=== PATIENT | female | born 1960 | race Caucasian/White ===

== ENCOUNTER → 2017-10-26 | Outpatient (CLI) | payer MEDICARE, OTHER ==
[2017-10-26 08:33] VITALS: BMI 33.3
[2017-10-26 13:28] VITALS: BP 125/70; PULSE 68; RESP 16; TEMP 98.2
--- NOTE | 2017-10-26 14:17 | P.CONS ---
History of Present Illness - Reason for Consult Consult date: 10/26/17 - Chief Complaint Lower back pain - History of Present Illness This is a 57-year-old lady with chronic history of lower back pain status post 4 back surgeries. The patient also has weakness in her left leg. It goes across her lower back and occasionally down the legs to the mid calves with occasional numbness and tingling in both feet. Her pain also goes up to the midthoracic area. We will her lower back pain gets worse by sitting for too long and walking for too long it occasionally wakes her up at night. She denies any bowel or bladder dysfunction. Her pain fluctuates in intensity but it is more than 5 out of 10 most of the time as she states. This pain increases by activities as mentioned above. The patient lays down in bed when she gets this pain. She used to be on [place] 4 times a day however her physician stopped prescribing that for her and she tried tramadol which did not help her pain and actually give her insomnia. Right now she takes Tylenol 3 that she tries to avoid taking it unless she really needs it because of severe constipation that she gets as a side effect. She saw Dr. Guzman recently who referred her to our clinic because there is nothing much can be done surgically for her complaint. Review of Systems Constitutional: Reports chronic pain Cardiovascular: Reports high blood pressure Respiratory: Denies as per HPI, Denies congestion, Denies cough, Denies cough with sputum, Denies dyspnea, Denies excessive sputum, Denies hemoptysis, Denies home oxygen, Denies pain, Denies pain on inspiration, Denies pleurisy, Denies respiratory infections, Denies sleep apnea, Denies snoring, Denies wheezing Musculoskeletal: Reports as per HPI Neurological: Reports as per HPI Psychiatric: Reports anxiety, Reports depression Past Medical History Past Medical History: Asthma, Diabetes Mellitus, GERD/Reflux, Hypertension, Musculoskeletal Disorder, Osteoarthritis (OA) Additional Past Medical History / Comment(s): lower back pain, no current problems w/diabetes since weight loss History of Any Multi-Drug Resistant Organisms: None Reported Past Surgical History: Back Surgery, Bariatric Surgery, Cholecystectomy, Hysterectomy, Tubal Ligation Additional Past Surgical History / Comment(s): neck and back surgery x 4, carpal tunnel bilateral, rouxen y-gastric bypass Past Anesthesia/Blood Transfusion Reactions: No Reported Reaction Smoking Status: Current every day smoker - Past Family History Mother Family Medical History: Congestive Heart Failure (CHF) Father Family Medical History: Respiratory Disorder Medications and Allergies Home Medications Medication Instructions Recorded Confirmed Type ALPRAZolam [Xanax] 0.25 mg PO BID 06/22/14 10/26/17 History Aspirin 81 mg PO DAILY 06/22/14 10/26/17 History Calcium Carbonate/Vitamin D3 1 tab PO DAILY 06/22/14 10/26/17 History [Calcium 600-Vit D3 400 Tablet] Multivitamins, Thera [Multivitamin] 1 tab PO DAILY 06/22/14 10/26/17 History Omeprazole 20 mg PO DAILY 06/22/14 10/26/17 History ALPRAZolam [Xanax] 0.5 mg PO HS 10/26/17 10/26/17 History ARIPiprazole [Abilify] 10 mg PO DAILY 10/26/17 10/26/17 History Acetaminophen with Codeine 1 tab PO TID PRN 10/26/17 10/26/17 History [Tylenol w/codeine #3] Albuterol Nebulized [Ventolin 2.5 mg INHALATION TID 10/26/17 10/26/17 History Nebulized] Cyanocobalamin [Vitamin B-12] 500 mcg PO DAILY 10/26/17 10/26/17 History Lisinopril [Zestril] 5 mg PO DAILY 10/26/17 10/26/17 History Sertraline [Zoloft] 100 mg PO DAILY 10/26/17 10/26/17 History lamoTRIgine [LaMICtal] 200 mg PO DAILY 10/26/17 10/26/17 History Allergies Allergy/AdvReac Type Severity Reaction Status Date / Time atorvastatin calcium Allergy Anaphylaxis Verified 10/26/17 13:12 [From Lipitor] pregabalin [From Lyrica] Allergy Anaphylaxis Verified 10/26/17 13:12 rosuvastatin calcium Allergy Anaphylaxis Verified 10/26/17 13:12 [From Crestor] duloxetine [From Cymbalta] AdvReac Nausea Verified 10/26/17 13:12 Physical Exam Vitals: Vital Signs Temp Pulse Resp BP Pulse Ox 10/26/17 13:23 98.2 F 68 16 125/70 94 L Intake and Output 10/25/17 10/26/17 10/26/17 22:59 06:59 14:59 Other: Weight 74.843 kg - Constitutional General appearance: morbidly obese - EENT Eyes: PERRLA - Respiratory Respiratory: bilateral: CTA - Cardiovascular Rhythm: regular Heart sounds: normal: S1, S2 Abnormal Heart Sounds: no systolic murmur, no diastolic murmur, no rub, no S3 Gallop, no S4 Gallop, no click, no other - Neurologic Neurologic: CNII-XII intact - Psychiatric Psychiatric: A&O x's 3, appropriate affect, intact judgment & insight Neuro exam of the lower extremities showed decreased muscle strength in the left lower extremity to 4 out of 5 for left hip flexion and left knee flexion and extension and left ankle flexion and extension. She has no deep tendon reflexes in the lower extremities. Internal and external rotation of the hip joints did not elicit any pain bilaterally. Straight leg raising test negative bilaterally. Ángel's test negative bilaterally. She has tenderness in the mid thoracic area the paravertebral area bilaterally and also the lumbar area. She has numbness in the lower lumbar area from her previous surgeries. Assessment and Plan Plan: This is a 57-year-old female with lumbar postlaminectomy pain syndrome and weakness in the left lower extremity. The patient may benefit from getting physical therapy for left lower extremity weakness. Also we'll schedule the patient to have caudal epidural steroid injection under fluoroscopic guidance with lysis of adhesions. I will send the patient to have an x-ray with 3 views of the thoracic spine for her thoracic spondylosis without myelopathy. I'll prescribe [place] 7.5 mg twice a day if needed for her pain I'll give her prescription for 1 month only. The patient will stop using Xanax. We will do a urine drug screen on the patient today before she leaves I will sign an opioid agreement with her. The procedure was explained to the patient and her questions were answered. I thank Dr. Guzman for the consultation
== END ==
LOC: PNWHC3 12:26
PROVIDERS: ATTEND Anesthesiology
DX: M96.1 Postlaminectomy syndrome, not elsewhere classified (principal); R53.1 Weakness; J45.909 Unspecified asthma, uncomplicated; I10 Essential (primary) hypertension; K21.9 Gastro-esophageal reflux disease without esophagitis; M19.90 Unspecified osteoarthritis, unspecified site; F17.200 Nicotine dependence, unspecified, uncomplicated; Z88.8 Allergy status to other drugs, medicaments and biological substances; Z79.82 Long term (current) use of aspirin; Z79.899 Other long term (current) drug therapy
CPT/HCPCS: G0480; G0463; 80307; 80346; 80348; 80356; 80364; 99211

== ENCOUNTER 2017-11-25 07:06 | Day surgery (SDC) | payer MEDICARE, OTHER ==
[2017-11-23 15:11] VITALS: BMI 33.3
[~2017-11-25 07:06] MED LIST: LACTATED RINGERS 1,000 ML IV SCH
[2017-11-25 08:00] VITALS: RESP 16; TEMP 98.3
--- NOTE | 2017-11-25 09:02 | P.PCN ---
Date of Procedure: 11/25/17 Procedure(s) Performed: PREOP DIAGNOSIS: 1- Lumbar postlaminectomy syndrome POSTOP DIAGNOSIS:1- Lumbar postlaminectomy syndrome PROCEDURE: Caudal epidural steroid injection with epidurolysis and epidurogram under fluoroscopic guidance ANESTHESIA: Local with 1% lidocaine 3 ml ,and moderate sedation, with Versed 4 mg and fentanyl 200 g EBL: Minimal. PROCEDURE INDICATION: The patient with post-laminectomy syndrome with low back pain and radiculopathy radiating down in both legs, here for a caudal epidural steroid injection with epidurolysis. PROCEDURE DESCRIPTION: The patient was seen and identified in the preoperative area. Risks, benefits, complications, and alternatives were discussed with the patient. The patient agreed to proceed with the procedure and signed the consent. IV was started, and vital signs were stable. Patient was taken to the OR and time out was completed. The patient was placed in the prone position on procedure table and a pillow was placed under the abdomen to reduce lumbar lordosis. The lumbosacral area was prepped and draped in the usual sterile fashion. Vital signs were closely monitored during the procedure. lateral view and the anterior-posterior plates of the sacrum were identified with infiltration of the area overlying the sacral hiatus with 1% lidocaine .A 17 gauge RK epidural needle was used to advance through the sacral hiatus into the caudal epidural space. Omnipaque 180 dye. 2cc was injected and the position of the needle was verified to be in the midline. A Racz catheter was introduced into the epidural space and was advanced towards the L5-S1 interspace under direct fluoroscopic guidance. Multiple passes were made with the catheter for lysis of epidural adhesions. Depo-Medrol 80 mg with 3ml of preservative free Lidocaine 1% and 5 ml of preservative free normal saline was injected slowly. Additional spread was seen to L4 under fluoroscopy. The needle and the catheter were withdrawn intact. EPIDUROGRAM: Omnipaque 180 mg dye 2 ml was injected with spread of the dye into the caudal epidural space and with spread cutoff at L5 prior to epidurolysis. Post epidurolysis dye 2 ml was injected and spread was seen to L4- 5.There was further spread of the solution together with the dye above the L3 COMPLICATIONS: None. DISPOSITION / PLANS: The patient was placed in a supine position and transferred to the recovery area in a stable condition for observation and was discharged from the recovery room after meeting discharge criteria. Home discharge instructions given to the patient by the staff. The patient was reexamined prior to discharge. The patient will schedule a follow up in the clinic in 2-4 weeks.
[2017-11-25] MEDS ORDERED: IV FLUID CONTINUATION 1,000 ML IV ONE ×2 (09:08)
--- NOTE | 2017-11-25 09:18 | FL ---
EXAMINATION TYPE: FL guided pain mgmt statistic DATE OF EXAM: 11/25/2017 FLUOROSCOPY Fluoroscopy time of 4 seconds was used during caudal epidural injection. 3 image/s document/s the pr manpreet.
[2017-11-25] MEDS ORDERED: KETOROLAC 30 MG/ML 1 ML VIAL IVP ONE (09:21)
[2017-11-25] MEDS ORDERED: HYDROmorphone 0.5 MG/0.5 ML SYRINGE IVP ONE (09:49)
[2017-11-25] MEDS ORDERED: HYDROmorphone 0.5 MG/0.5 ML SYRINGE IVP STA (09:50)
[2017-11-25 09:52] VITALS: BP 150/67; PULSE 68
[2017-11-25] MEDS ORDERED: KETOROLAC 30 MG/ML 1 ML VIAL IVP SCH (12:00)
== END 2017-11-25 10:20 | disposition home or self-care (01) ==
LOC: ORPAIN 07:06
PROVIDERS: ATTEND Specialist
DX: M96.1 Postlaminectomy syndrome, not elsewhere classified (principal); I10 Essential (primary) hypertension; J45.909 Unspecified asthma, uncomplicated; E11.9 Type 2 diabetes mellitus without complications; K21.9 Gastro-esophageal reflux disease without esophagitis; Z88.8 Allergy status to other drugs, medicaments and biological substances
CPT/HCPCS: 62264; J2250; J3301; J3010; J1885; J1170; Q9966; 99152

== ENCOUNTER → 2019-11-23 | Outpatient (CLI) | payer MEDICARE, OTHER ==
--- NOTE | 2019-11-23 15:36 | P.HPBAR ---
Bariatric H&P - History & Physicial H&P Date: 11/23/19 History & Physicial: Visit/CC: Patient initial contact: Initial weight: 97.84 kg Initial weight in pounds: 215.70 Height: 4 ft 11 in Initial BMI: 43.5 Last weight: Current weight: 80.286 kg Current weight in pounds: 177.00 Current BMI: 35.7 Hitchcock body weight (based on NIH guidelines): 43.091 kg Excess body weight loss: 32.0% The patient is a 59 year-old F who presents for Bariatric Assessment. Comes in with in MRCP. Will need referral to [facility] if intervention is needed. She reports waking up in the abdomen. She has been lost to follow up for 5 years from bariatric center. Will need lab work. Labs will be needed with referral to GI. No chronic abdominal pain EGD for scope and pork chops Past Medical History Past Medical History: Asthma, Diabetes Mellitus, GERD/Reflux, Hypertension, Musculoskeletal Disorder, Osteoarthritis (OA) Additional Past Medical History / Comment(s): lower back pain, no current problems w/diabetes since weight loss History of Any Multi-Drug Resistant Organisms: None Reported Past Surgical History: Back Surgery, Bariatric Surgery, Cholecystectomy, Hysterectomy, Tubal Ligation Additional Past Surgical History / Comment(s): neck and back surgery x 4, carpal tunnel bilateral, rouxen y-gastric bypass Past Anesthesia/Blood Transfusion Reactions: No Reported Reaction Smoking Status: Current every day smoker - Past Family History Mother Family Medical History: Congestive Heart Failure (CHF) Father Family Medical History: Respiratory Disorder Surgical - Exam Vital Signs Temp Pulse Resp BP 98.5 F 101 H 16 104/64 11/23/19 15:25 11/23/19 15:25 11/23/19 15:25 11/23/19 15:25 Bariatric Checklist Checklist: Plan: Checklist: EGD: 1. Hiatal hernia: 2. H. Pylori: HgbA1c: Vitamin D: Smoking: Current every day smoker Primary care physician referral: DR. NEWTON Psychiatry clearance: Cardiology clearance: Sleep study: Diet journal: VTE risk score: VTE risk level: Rehab needs at discharge:
[2019-11-25 09:33] VITALS: BP 104/64; PULSE 101; RESP 16; TEMP 98.5; BMI 35.7
== END | disposition home or self-care (01) ==
LOC: BARWHC3 14:17
PROVIDERS: ATTEND Surgery Plastic and Reconstructive Surgery
DX: Z48.815 Encounter for surgical aftercare following surgery on the digestive system (principal); Z98.84 Bariatric surgery status
CPT/HCPCS: 99211

== ENCOUNTER 2019-12-07 06:56 | Day surgery (SDC) | payer MEDICARE, OTHER ==
[2019-12-05 10:42] VITALS: BMI 34.3
[2019-12-07 07:33] VITALS: TEMP 97.6
[2019-12-07 07:45] LABS: Glucose,Whole Blood 103 mg/dL (75-99)
--- NOTE | 2019-12-07 08:01 | P.GSHP ---
History of Present Illness H&P Date: 12/07/19 CHIEF COMPLAINT: GERD HISTORY OF PRESENT ILLNESS: The patient is a 59-year-old female who presents reports gastroesophageal reflux disease. Upper endoscopy was offered for further evaluation and management. PAST MEDICAL HISTORY: Please see list. PAST SURGICAL HISTORY: Please see list. MEDICATIONS: Please see list. ALLERGIES: Please see list. SOCIAL HISTORY: No illicit drug use FAMILY HISTORY: No reports of Crohn disease or ulcerative colitis. REVIEW OF ORGAN SYSTEMS: CONSTITUTIONAL: No reports of fevers or chills. GI: Denies any blood in stools or constipation. PHYSICAL EXAM: VITAL SIGNS: Stable GENERAL: Well-developed and pleasant in no acute distress. HEENT: No scleral icterus. Extraocular movements grossly intact. Moist buccal mucosa. NECK: Supple without lymphadenopathy. CHEST: Unlabored respirations. Equal bilateral excursions. CARDIOVASCULAR: Regular rate and rhythm. Distal 2+ pulses. ABDOMEN: Soft, nondistended. MUSCULOSKELETAL: No clubbing, cyanosis, or edema. ASSESSMENT: 1. Gastroesophageal reflux disease PLAN: 1. Recommend proceeding with an upper endoscopy Past Medical History Past Medical History: Asthma, Diabetes Mellitus, GERD/Reflux, Hypertension, Musculoskeletal Disorder, Osteoarthritis (OA) Additional Past Medical History / Comment(s): lower back pain, no current problems w/diabetes since weight loss, History of Any Multi-Drug Resistant Organisms: None Reported Past Surgical History: Back Surgery, Bariatric Surgery, Cholecystectomy, Hysterectomy, Orthopedic Surgery, Tubal Ligation Additional Past Surgical History / Comment(s): neck and back surgery x 4, carpal tunnel bilateral, rouxen y-gastric bypass, EGD Past Anesthesia/Blood Transfusion Reactions: No Reported Reaction Smoking Status: Current every day smoker - Past Family History Mother Family Medical History: Congestive Heart Failure (CHF) Father Family Medical History: Respiratory Disorder Medications and Allergies Home Medications Medication Instructions Recorded Confirmed Type Multivitamins, Thera [Multivitamin] 1 tab PO DAILY 06/22/14 12/07/19 History ARIPiprazole [Abilify] 10 mg PO DAILY 10/26/17 12/07/19 History Albuterol Nebulized [Ventolin 2.5 mg INHALATION TID PRN 10/26/17 12/07/19 History Nebulized] Calcium Carbonate [Calcium] 600 mg PO DAILY 11/23/17 12/07/19 History Atomoxetine HCl [Strattera] 60 mg PO DAILY 11/30/19 12/07/19 History Omeprazole [PriLOSEC] 20 mg PO AC-BRKFST 11/30/19 12/07/19 History Sertraline [Zoloft] 100 mg PO DAILY 11/30/19 12/07/19 History Buprenorphine HCl/Naloxone HCl 1 each SL DAILY 12/05/19 12/07/19 History [Suboxone 12 mg-3 mg Sl Film] Buprenorphine HCl/Naloxone HCl 1 each SL DAILY 12/05/19 12/07/19 History [Suboxone 8 mg-2 mg Sl Film] Fluticasone/Vilanterol [Breo 1 inhalation PO Q24HR 12/05/19 12/07/19 History Ellipta 100-25 Mcg Inhaler] Allergies Allergy/AdvReac Type Severity Reaction Status Date / Time atorvastatin calcium Allergy Anaphylaxis Verified 12/07/19 07:23 [From Lipitor] pregabalin [From Lyrica] Allergy Anaphylaxis Verified 12/07/19 07:23 rosuvastatin calcium Allergy Anaphylaxis Verified 12/07/19 07:23 [From Crestor] duloxetine [From Cymbalta] AdvReac Nausea Verified 12/07/19 07:23 Surgical - Exam Vital Signs Temp Pulse Resp BP Pulse Ox 97.6 F 91 18 113/69 94 L 12/07/19 07:32 12/07/19 07:32 12/07/19 07:32 12/07/19 07:32 12/07/19 07:32 Results - Labs Abnormal Lab Results - Last 24 Hours (Table) 12/07/19 Range/Units 07:41 POC Glucose (mg/dL) 103 H (75-99) mg/dL
--- NOTE | 2019-12-07 08:20 | P.PCN ---
Date of Procedure: 12/07/19 Description of Procedure: PREOPERATIVE DIAGNOSIS: Dysphagia. History of perforated gastrojejunal ulcer Morbid obesity. Tobacco abuse disorder POSTOPERATIVE DIAGNOSIS: Dysphagia. History of perforated gastrojejunal ulcer Morbid obesity. Tobacco abuse disorder Gastritis Gastrojejunal stricture without chronic ulcer without perforation OPERATION: Esophagogastrojejunoscopy with balloon dilatation from 15 to 20 mm. Esophagogastrojejunoscopy with cold forceps biopsy gastric pouch SURGEON: Rin Blunt MD ANESTHESIA: MAC. INDICATIONS: The patient is a 59-year-old female who presents with a history of dysphagia. Benefits and risks of the procedure were described. Informed consent was obtained. DESCRIPTION: The patient was brought into the endoscopy suite and laid in the left lateral decubitus position. After a timeout was confirmed, the procedure was initiated. An Olympus gastroscope was passed along the posterior oropharynx down to the distal esophagus where the squamocolumnar junction was unremarkable. The gastric pouch was entered. A gastrojejunal stricture of 15 mm was found as the adult gastroscope was 9.5 mm in size. A [employer] balloon dilator was placed through the scope. Final insufflation up to 20 mm was performed with a total of 2 minutes. The scope was advanced up to 60 cm from the incisors into the Jamila limb. The mucosa of the gastrojejunal anastomosis was intact. The gastric pouch was erythematous with cold biopsies obtained. No chronic gastrojejunal marginal ulcer was encountered. No full-thickness injury was encountered. The GI tract was desufflated. The patient tolerated the procedure well. FINDINGS: Squamocolumnar junction unremarkable at 37 cm. Stricture of approximately 15 mm encountered. Chronic gastrojejunal ulceration encountered. Successful balloon dilatation to 20 mm. Jejunal limb measured 8 cm Gastric pouch 4 cm. RECOMMENDATIONS: Tobacco cessation and counseling performed, 3 minutes Upper endoscopy as needed Plan - Discharge Summary Discharge Rx Participant: No New Discharge Prescriptions: Continue Multivitamins, Thera [Multivitamin (formulary)] 1 tab PO DAILY Albuterol Nebulized [Ventolin Nebulized] 2.5 mg INHALATION TID PRN PRN Reason: Shortness Of Breath ARIPiprazole [Abilify] 10 mg PO DAILY Calcium Carbonate [Calcium] 600 mg PO DAILY Sertraline [Zoloft] 100 mg PO DAILY Omeprazole [PriLOSEC] 20 mg PO AC-BRKFST Atomoxetine HCl [Strattera] 60 mg PO DAILY Fluticasone/Vilanterol [Breo Ellipta 100-25 Mcg Inhaler] 1 inhalation PO Q24HR Buprenorphine HCl/Naloxone HCl [Suboxone 12 mg-3 mg Sl Film] 1 each SL DAILY Buprenorphine HCl/Naloxone HCl [Suboxone 8 mg-2 mg Sl Film] 1 each SL DAILY Discharge Medication List Multivitamins, Thera [Multivitamin (formulary)] 1 tab PO DAILY 06/22/14 [History] ARIPiprazole [Abilify] 10 mg PO DAILY 10/26/17 [History] Albuterol Nebulized [Ventolin Nebulized] 2.5 mg INHALATION TID PRN 10/26/17 [History] Calcium Carbonate [Calcium] 600 mg PO DAILY 11/23/17 [History] Atomoxetine HCl [Strattera] 60 mg PO DAILY 11/30/19 [History] Omeprazole [PriLOSEC] 20 mg PO AC-BRKFST 11/30/19 [History] Sertraline [Zoloft] 100 mg PO DAILY 11/30/19 [History] Buprenorphine HCl/Naloxone HCl [Suboxone 12 mg-3 mg Sl Film] 1 each SL DAILY 12/05/19 [History] Buprenorphine HCl/Naloxone HCl [Suboxone 8 mg-2 mg Sl Film] 1 each SL DAILY 12/05/19 [History] Fluticasone/Vilanterol [Breo Ellipta 100-25 Mcg Inhaler] 1 inhalation PO Q24HR 12/05/19 [History] [facility] [place] [facility] Patient Instructions/Handouts: *Surgery [facility] - (Anesthesia) Endoscopy Discharge Instructions, Esophageal Dilation (DC), How to Stop Smoking (ED) Activity/Diet/Wound Care/Special Instructions: Diet as tolerated Discharge Disposition: HOME SELF-CARE
[2019-12-07 08:45] VITALS: BP 97/67; PULSE 74; RESP 15
[2019-12-07 10:14] LABS: HGB 14.5 gm/dL (11.4-16.0); MCH 29.4 pg (25.0-35.0); MCHC 31.6 g/dL (31.0-37.0); MCV 92.9 fL (80.0-100.0); Mean Platelet Volume 8.6; Platelet Count 275 k/uL (150-450); RBC 4.95 m/uL (3.80-5.40); RDW 15.5 % (11.5-15.5); WBC 10.5 k/uL (3.8-10.6)
[2019-12-07 10:25] LABS: ALT 11 U/L (4-34); AST 20 U/L (14-36); African American GFR (CKD) >90 (>60 ml/min/1.73 sqM); Albumin 3.4 g/dL (3.5-5.0); Alkaline Phosphatase 93 U/L (38-126); Anion Gap 4 mmol/L; Blood Urea Nitrogen 9 mg/dL (7-17); Carbon Dioxide 29 mmol/L (22-30); Chloride 104 mmol/L (98-107); Cholesterol 138 mg/dL (<200); Glucose 92 mg/dL (74-99); HDL Cholesterol 55 mg/dL (40-60); LDL Cholesterol,Calculated 59 mg/dL (0-99); Magnesium 1.8 mg/dL (1.6-2.3); Non-African American GFR(CKD) >90 (>60 ml/min/1.73 sqM); Phosphorus 4.6 mg/dL (2.5-4.5); Potassium 4.7 mmol/L (3.5-5.1); Sodium 137 mmol/L (137-145); Total Bilirubin 0.3 mg/dL (0.2-1.3); Total Protein 6.1 g/dL (6.3-8.2); Triglycerides 120 mg/dL (<150)
[2019-12-07 10:27] LABS: INR 0.9 (<1.2); Partial Thromboplastin Time 22.9 sec (22.0-30.0); Prothrombin Time 9.5 sec (9.0-12.0)
[2019-12-07 16:54] LABS: % Iron Saturation 17.13 (12.00-45.00); Iron 62 ug/dL (50-170); Total Iron Binding Capacity 362 ug/dL (228-460)
[2019-12-07 17:03] LABS: Ferritin 24.4 ng/mL (10.0-291.0)
[2019-12-07 17:19] LABS: Folate, Serum >24.0 ng/mL
[2019-12-07 20:18] LABS: Hemoglobin A1C 5.8 % (4.0-6.0)
[2019-12-08 13:24] LABS: Zinc, Serum 53 ug/dL (60-130)
[2019-12-09 06:52] LABS: Vitamin A 36 ug/dL (38-106)
[2019-12-09 07:18] LABS: Vit B1(Thiamine) 101 ug/L (38-122)
[2019-12-11 04:13] LABS: Selenium 95 mcg/L (63-160)
== END 2019-12-07 08:51 | disposition home or self-care (01) ==
LOC: ORWHC2ENDO 06:56
PROVIDERS: ATTEND Surgery Plastic and Reconstructive Surgery
DX: K29.70 Gastritis, unspecified, without bleeding (principal); K56.699 Other intestinal obstruction unspecified as to partial versus complete obstruction; K95.89 Other complications of other bariatric procedure; K28.7 Chronic gastrojejunal ulcer without hemorrhage or perforation; K31.89 Other diseases of stomach and duodenum; K21.9 Gastro-esophageal reflux disease without esophagitis; E66.01 Morbid (severe) obesity due to excess calories; E11.9 Type 2 diabetes mellitus without complications; I10 Essential (primary) hypertension; M19.90 Unspecified osteoarthritis, unspecified site; J44.9 Chronic obstructive pulmonary disease, unspecified; F17.210 Nicotine dependence, cigarettes, uncomplicated; F32.9 Major depressive disorder, single episode, unspecified; E21.1 Secondary hyperparathyroidism, not elsewhere classified; D50.9 Iron deficiency anemia, unspecified; K90.9 Intestinal malabsorption, unspecified; E44.1 Mild protein-calorie malnutrition; E55.9 Vitamin D deficiency, unspecified; K74.1 Hepatic sclerosis; T56.894A Toxic effect of other metals, undetermined, initial encounter; Z88.8 Allergy status to other drugs, medicaments and biological substances; Z68.36 Body mass index [BMI] 36.0-36.9, adult; Z87.11 Personal history of peptic ulcer disease; Z98.890 Other specified postprocedural states; Z90.49 Acquired absence of other specified parts of digestive tract; Z90.710 Acquired absence of both cervix and uterus; Z98.51 Tubal ligation status; Z86.69 Personal history of other diseases of the nervous system and sense organs; Z79.899 Other long term (current) drug therapy; Z79.891 Long term (current) use of opiate analgesic; Z79.51 Long term (current) use of inhaled steroids; Z97.2 Presence of dental prosthetic device (complete) (partial); Z98.1 Arthrodesis status; Z82.49 Family history of ischemic heart disease and other diseases of the circulatory system; Z83.6 Family history of other diseases of the respiratory system
CPT/HCPCS: 43239; 43245; 80053; 80061; 82306; 82525; 82607; 82728; 82746; 83036; 83540; 83550; 83735; 83970; 84100; 84134; 84255; 84425; 84443; 84590; 84630; 85027; 85610; 85730; 88305

== ENCOUNTER 2020-12-01 18:32 | Inpatient (IN) | payer MEDICARE, OTHER ==
--- NOTE | 2020-12-01 18:53 | ED ---
Chest Pain HPI - General Chief Complaint: Chest Pain Stated Complaint: Chest Pain Time Seen by Provider: 12/01/20 18:35 Source: patient, EMS Mode of arrival: EMS Limitations: no limitations - History of Present Illness Initial Comments: Patient is a 60-year-old female past medical history of diabetes who presents emergency department as a transfer from [facility]. Patient went into their facility with chest pain which has been present for the past week however worsened 2 hours prior to arrival to the hospital. EKG was performed upon the patient have an inferior wall STEMI. [facility] did discuss the case with me prior to transfer. Case is discussed with Dr. White. Patient was given thrombolytics, aspirin, heparin, statin, Lopressor and was transferred here. She denies previous history of cardiac disease. Had a cath 6 years ago which was unremarkable. She denies fevers, chills or cough. No other alleviating, assurance analyst modifying factors - Related Data Home Medications Medication Instructions Recorded Confirmed Sertraline [Zoloft] 200 mg PO DAILY 11/30/19 12/01/20 Buprenorphine HCl/Naloxone HCl 1 film SL DAILY 12/05/19 12/01/20 [Suboxone 12 mg-3 mg Sl Film] Buprenorphine HCl/Naloxone HCl 1 film SL DAILY 12/05/19 12/01/20 [Suboxone 8 mg-2 mg Sl Film] ARIPiprazole [Abilify] 20 mg PO DAILY 12/01/20 12/01/20 Albuterol Sulfate [Ventolin HFA] 2 puff INHALATION RT-Q4H 12/01/20 12/01/20 Atomoxetine HCl [Strattera] 80 mg PO DAILY 12/01/20 12/01/20 Budesonide/Glycopyr/Formoterol 2 puff INHALATION RT-BID 12/01/20 12/01/20 [Breztri Aerosphere Inhaler] Cetirizine HCl [Zyrtec] 10 mg PO DAILY 12/01/20 12/01/20 Cholecalciferol (Vitamin D3) 250 mcg PO DAILY 12/01/20 12/01/20 [Vitamin D3 (5000 Iu)] Doxycycline Monohydrate [Monodox] 100 mg PO BID 12/01/20 12/01/20 Fluticasone Nasal [place] [Flonase 1 spray EA NOSTRIL DAILY 12/01/20 12/01/20 Nasal [place]] Furosemide [Lasix] 20 mg PO MOWEFR 12/01/20 12/01/20 Ipratropium-Albuterol Nebulize 3 ml INHALATION RT-QID PRN 12/01/20 12/01/20 [Duoneb 0.5 mg-3 mg/3 ml Soln] Magnesium Oxide 400 mg PO HS 12/01/20 12/01/20 Montelukast [Singulair] 10 mg PO DAILY 12/01/20 12/01/20 Nicotine Polacrilex [Nicorette] 4 mg BUCCAL Q2H PRN 12/01/20 12/01/20 Pantoprazole Sodium [Protonix] 40 mg PO DAILY 12/01/20 12/01/20 Topiramate [Topamax] 100 mg PO HS 12/01/20 12/01/20 Vitamin A 2,400 mcg PO DAILY 12/01/20 12/01/20 Vitamin B Complex 1 cap PO DAILY 12/01/20 12/01/20 Zinc 50 mg PO DAILY 12/01/20 12/01/20 predniSONE [Deltasone] 40 mg PO DAILY 12/01/20 12/01/20 Allergies Allergy/AdvReac Type Severity Reaction Status Date / Time atorvastatin calcium Allergy Anaphylaxis Verified 12/01/20 19:44 [From Lipitor] citalopram [From Celexa] Allergy Unknown Verified 12/01/20 19:44 NSAIDS (Non-Steroidal Allergy Unknown Verified 12/01/20 19:44 Anti-Inflamma pregabalin [From Lyrica] Allergy Anaphylaxis Verified 12/01/20 19:44 rosuvastatin calcium Allergy Anaphylaxis Verified 12/01/20 19:44 [From Crestor] duloxetine [From Cymbalta] AdvReac Nausea Verified 12/01/20 19:44 Review of Systems ROS Statement: Those systems with pertinent positive or pertinent negative responses have been documented in the HPI. ROS Other: All systems not noted in ROS Statement are negative. EKG Findings - EKG Comments: EKG Findings:: EKG demonstrates sinus rhythm with a ventricular rate of 73. NH interval 186. QRS 92. QTC of 447. Continues to be ST segment elevation of 1 mm in lead 2 and 3. Q-wave present in lead 3. Reciprocal changes in 1 and aVL however improved from patient's initial EKG Past Medical History Past Medical History: Chest Pain / Angina, Diabetes Mellitus Additional Past Medical History / Comment(s): lower back pain, no current problems w/diabetes since weight loss, History of Any Multi-Drug Resistant Organisms: None Reported Past Surgical History: Back Surgery, Bariatric Surgery, Cholecystectomy, Hysterectomy, Orthopedic Surgery, Tubal Ligation Additional Past Surgical History / Comment(s): neck and back surgery x 4, carpal tunnel bilateral, rouxen y-gastric bypass, EGD Past Anesthesia/Blood Transfusion Reactions: No Reported Reaction Past Psychological History: Anxiety, Depression Smoking Status: Current every day smoker Past Alcohol Use History: None Reported Past Drug Use History: None Reported - Past Family History Mother Family Medical History: Congestive Heart Failure (CHF) Father Family Medical History: Respiratory Disorder General Exam Limitations: no limitations General appearance: alert, in no apparent distress Head exam: Present: atraumatic, normocephalic, normal inspection Eye exam: Present: normal appearance, PERRL, EOMI. Absent: scleral icterus, conjunctival injection, periorbital swelling ENT exam: Present: normal exam, mucous membranes moist Neck exam: Present: normal inspection. Absent: tenderness, meningismus, lymphadenopathy Respiratory exam: Present: normal lung sounds bilaterally. Absent: respiratory distress, wheezes, rales, rhonchi, stridor Cardiovascular Exam: Present: regular rate, normal rhythm, normal heart sounds. Absent: systolic murmur, diastolic murmur, rubs, gallop, clicks GI/Abdominal exam: Present: soft, normal bowel sounds. Absent: distended, tenderness, guarding, rebound, rigid Extremities exam: Present: normal inspection, full ROM, normal capillary refill. Absent: tenderness, pedal edema, joint swelling, calf tenderness Back exam: Present: normal inspection Neurological exam: Present: alert, oriented X3, CN II-XII intact Psychiatric exam: Present: normal affect, normal mood Skin exam: Present: warm, dry, intact, normal color. Absent: rash Course Vital Signs 12/01/20 12/01/20 18:34 18:51 Temperature 98 F Pulse Rate 78 82 Respiratory 20 20 Rate Blood Pressure 116/68 137/78 O2 Sat by Pulse 100 100 Oximetry - Reevaluation(s) Reevaluation #1: 12/01/20 18:[address] Estes - will take for cath Chest Pain MDM - MDM I discussed the case with the transferring physicial from [place]. I called and spoke with Dr. Estes prior to accepting the patient. Dr. Estes does recommend lytics and agrees to transfer. I do get him in contact directly with [facility]. Upon arrival patient is placed into room [address] Estes would like the patient evaluated first before taken to slab conditioner supervisor. Repeat EKG is performed which continues to demonstrate some inferior wall elevation. Patient continues to have 3 out of 10 chest pain. I called and discussed the case Dr. Estes who instructs to activate the slab conditioner supervisor. Patient Was Taken to the Electrical Checkout Mechanic in stable condition. I discussed the case with Dr. Shelton who agreed to admit the patient. Critical Care Time Critical Care Time: Yes Critical Care Time: 32 minutes - evaluation of EKG, comparison to old, discussion with actionscript developer multiple times even prior to hospital arrival, discussion with transferring ER doctor, activation of stemi Disposition Clinical Impression: ST elevation myocardial infarction (STEMI), Chest pain Disposition: ADMITTED IP TO THIS HOSP Condition: Serious Is patient prescribed a controlled substance at d/c from ED?: No Decision to Admit Reason: Admit from EC Decision Date: 12/01/20 Decision Time: 19:17
[2020-12-01] MEDS ORDERED: IV FLUID CONTINUATION 1,000 ML IV ONE (19:12)
[2020-12-01] MEDS ORDERED: NALOXONE 0.4 MG/ML 1 ML VIAL IV PRN (19:17)
[2020-12-01] MEDS ORDERED: LIDOCAINE 1% INJ 10MG/ML (20 ML MDV) ONE (19:24)
[2020-12-01] MEDS ORDERED: HEPARIN SODIUM 1,000 UN/ML (10ML VL) ONE (19:24)
[2020-12-01] MEDS ORDERED: VERAPAMIL 2.5 MG/ML 2 ML AMP ONE (19:24)
[2020-12-01] MEDS ORDERED: MIDAZOLAM 2 MG/2 ML VIAL IV ONE (19:25)
[2020-12-01] MEDS ORDERED: LIDOCAINE 1% INJ 10MG/ML (20 ML MDV) SQ ONE (19:27)
[2020-12-01] MEDS ORDERED: HEPARIN SODIUM 1,000 UN/ML (10ML VL) IV ONE (19:33)
[2020-12-01] MEDS ORDERED: NITROGLYCERIN 1000MCG/10ML SYRINGE INTRACORON ONE (19:37)
[2020-12-01] MEDS ORDERED: PRASUGREL 10 MG TAB PO ONE (19:39)
[2020-12-01] MEDS ORDERED: PRASUGREL 10 MG TAB ONE (19:41)
[2020-12-01] MEDS ORDERED: IOPAMIDOL-370 125ML BTL INJ ONE (19:48)
[2020-12-01] MEDS ORDERED: NICOTINE POLACRILEX 2 MG GUM BUCCAL PRN (19:55)
[2020-12-01] MEDS ORDERED: IPRATROPIUM-ALBUTEROL 3 ML NEB INHALATION PRN (19:55)
[2020-12-01] MEDS ORDERED: RX INFO: IV CONTRAST WAS GIVEN 1 EACH MISC MISCELLANE PRN (19:57)
[2020-12-01] MEDS ORDERED: ATROPINE SULFATE 0.1 MG/ML 10ML SYRINGE IV PRN (19:57)
[2020-12-01] MEDS ORDERED: NITROGLYCERIN SL TABS 0.4 MG TAB SUBLINGUAL PRN (19:57)
[2020-12-01] MEDS ORDERED: ZOLPIDEM 5 MG TAB PO PRN (19:57)
[2020-12-01] MEDS ORDERED: MAG HYDROX/AL HYDROX/SIMETH 30 ML CUP PO PRN (19:57)
[2020-12-01] MEDS ORDERED: SODIUM CHLORIDE 0.9% 1,000 ML IV SCH (20:00)
[2020-12-01] MEDS ORDERED: ALBUTEROL NEBULIZED 2.5 MG/3 ML INHALATION SCH (20:00)
--- NOTE | 2020-12-01 20:09 | P.CRDCN ---
History of Present Illness Consult date: 12/01/20 Chief complaint: Chest discomfort History of present illness: This is a very pleasant 60-year-old female patient with history of obesity who underwent in the past weight reduction surgery was transferred from [facility] to [facility] for further evaluation and management of acute coronary syndrome. The patient presented with a chest discomfort. The EKG over there showed acute inferior ST patient myocardial infarction. Subsequently the patient was given thrombolytics and she was shipped to the emergency department here [facility]. Her chest discomfort was reduced from 8/10 in intensity to about 2/[address] changes has improved. Because she continues to have ongoing chest discomfort and EKG changes with decided to take the patient to the End Lathe Operator. She underwent a heart catheterization which revealed critical disease involving the mid right coronary artery with DANA-3 flow. Subsequently she underwent successful stenting of the RCA with an excellent angiographic results and without any complication. The left coronary system was found to have mild disease only. She is chest pain-free by the end of the procedure. She has no history of coronary artery disease in the past. She has no diabetes or hypertension or dyslipidemia. She is a smoker. The patient will be admitted to the intensive care unit for the next 24 hours and she will be on dual antiplatelet therapy along with high intensity statin and anti-ischemic medication and will obtain an echocardiogram was Doppler. Past Medical History Past Medical History: Chest Pain / Angina, Diabetes Mellitus Additional Past Medical History / Comment(s): lower back pain, no current problems w/diabetes since weight loss, History of Any Multi-Drug Resistant Organisms: None Reported Past Surgical History: Back Surgery, Bariatric Surgery, Cholecystectomy, Hysterectomy, Orthopedic Surgery, Tubal Ligation Additional Past Surgical History / Comment(s): neck and back surgery x 4, carpal tunnel bilateral, rouxen y-gastric bypass, EGD Past Anesthesia/Blood Transfusion Reactions: No Reported Reaction Past Psychological History: Anxiety, Depression Smoking Status: Current every day smoker Past Alcohol Use History: None Reported Past Drug Use History: None Reported - Past Family History Mother Family Medical History: Congestive Heart Failure (CHF) Father Family Medical History: Respiratory Disorder Medications and Allergies Home Medications Medication Instructions Recorded Confirmed Type Sertraline [Zoloft] 200 mg PO DAILY 11/30/19 12/01/20 History Buprenorphine HCl/Naloxone HCl 1 film SL DAILY 12/05/19 12/01/20 History [Suboxone 12 mg-3 mg Sl Film] Buprenorphine HCl/Naloxone HCl 1 film SL DAILY 12/05/19 12/01/20 History [Suboxone 8 mg-2 mg Sl Film] ARIPiprazole [Abilify] 20 mg PO DAILY 12/01/20 12/01/20 History Albuterol Sulfate [Ventolin HFA] 2 puff INHALATION RT-Q4H 12/01/20 12/01/20 History Atomoxetine HCl [Strattera] 80 mg PO DAILY 12/01/20 12/01/20 History Budesonide/Glycopyr/Formoterol 2 puff INHALATION RT-BID 12/01/20 12/01/20 History [Breztri Aerosphere Inhaler] Cetirizine HCl [Zyrtec] 10 mg PO DAILY 12/01/20 12/01/20 History Cholecalciferol (Vitamin D3) 250 mcg PO DAILY 12/01/20 12/01/20 History [Vitamin D3 (5000 Iu)] Doxycycline Monohydrate [Monodox] 100 mg PO BID 12/01/20 12/01/20 History Fluticasone Nasal [place] [Flonase 1 spray EA NOSTRIL DAILY 12/01/20 12/01/20 History Nasal [place]] Furosemide [Lasix] 20 mg PO MOWEFR 12/01/20 12/01/20 History Ipratropium-Albuterol Nebulize 3 ml INHALATION RT-QID PRN 12/01/20 12/01/20 History [Duoneb 0.5 mg-3 mg/3 ml Soln] Magnesium Oxide 400 mg PO HS 12/01/20 12/01/20 History Montelukast [Singulair] 10 mg PO DAILY 12/01/20 12/01/20 History Nicotine Polacrilex [Nicorette] 4 mg BUCCAL Q2H PRN 12/01/20 12/01/20 History Pantoprazole Sodium [Protonix] 40 mg PO DAILY 12/01/20 12/01/20 History Topiramate [Topamax] 100 mg PO HS 12/01/20 12/01/20 History Vitamin A 2,400 mcg PO DAILY 12/01/20 12/01/20 History Vitamin B Complex 1 cap PO DAILY 12/01/20 12/01/20 History Zinc 50 mg PO DAILY 12/01/20 12/01/20 History predniSONE [Deltasone] 40 mg PO DAILY 12/01/20 12/01/20 History Allergies Allergy/AdvReac Type Severity Reaction Status Date / Time atorvastatin calcium Allergy Anaphylaxis Verified 12/01/20 19:44 [From Lipitor] citalopram [From Celexa] Allergy Unknown Verified 12/01/20 19:44 NSAIDS (Non-Steroidal Allergy Unknown Verified 12/01/20 19:44 Anti-Inflamma pregabalin [From Lyrica] Allergy Anaphylaxis Verified 12/01/20 19:44 rosuvastatin calcium Allergy Anaphylaxis Verified 12/01/20 19:44 [From Crestor] duloxetine [From Cymbalta] AdvReac Nausea Verified 12/01/20 19:44 Physical Exam Vitals: Vital Signs Temp Pulse Resp BP Pulse Ox 12/01/20 19:19 98 F 82 20 137/78 100 12/01/20 18:51 82 20 137/78 100 12/01/20 18:34 98 F 78 20 116/68 100 Intake and Output 12/01/20 12/01/20 12/01/20 06:59 14:59 22:59 Intake Total 150 Balance 150 Intake: IV 150 Other: Weight 88.904 kg - Constitutional General appearance: no acute distress - Respiratory Respiratory: bilateral: CTA - Cardiovascular Rhythm: regular Heart sounds: normal: S1, S2 Abnormal Heart Sounds: systolic murmur Results Current Medications Generic Name Dose Route Start Last Admin Trade Name Freq PRN Reason Stop Dose Admin Al Hydroxide/Mg Hydroxide 30 ml 12/01/20 19:57 Mag Hydrox/Al Hydrox/Simeth 30 Ml Cup PO Q4HR PRN Heartburn Albuterol/Ipratropium 3 ml 12/01/20 19:55 Ipratropium-Albuterol 3 Ml Neb INHALATION RT-QID PRN Shortness Of Breath Aripiprazole 20 mg 12/02/20 09:00 Aripiprazole 20 Mg Tab PO DAILY [facility] Atorvastatin Calcium 40 mg 12/01/20 21:00 Atorvastatin 40 Mg Tab PO HS [facility] Atropine Sulfate 0.5 mg 12/01/20 19:57 Atropine Sulfate 0.1 Mg/Ml 10ml Syringe IV ONCE PRN Symptomatic Bradycardia Cholecalciferol 250 mcg 12/02/20 09:00 Cholecalciferol 25 Mcg (1000 Iu) Tablet PO DAILY [facility] Doxycycline Monohydrate 100 mg 12/01/20 21:00 Doxycycline 100 Mg Cap PO BID [facility] Fluticasone Propionate 1 spray 12/02/20 09:00 Fluticasone 50mcg/Hyrum Nasal 16gm EA NOSTRIL DAILY [facility] Furosemide 20 mg 12/03/20 09:00 Furosemide 20 Mg Tab PO MOWEFR [facility] Sodium Chloride 1,000 mls @ 75 mls/hr 12/01/20 20:00 Saline 0.9% IV 12/02/20 01:01 .[id number] [facility] Loratadine 10 mg 12/02/20 09:00 Loratadine 10 Mg Tab PO DAILY [facility] Metoprolol Succinate 25 mg 12/02/20 09:00 Metoprolol Succinate (Er) 25 Mg Tab.Er.24h PO DAILY [facility] Miscellaneous Information 1 each 12/01/20 19:57 Rx Info: Iv Contrast Was Given 1 Each Misc MISCELLANE 12/03/20 19:57 DAILY PRN Per Protocol Montelukast Sodium 10 mg 12/02/20 09:00 Montelukast 10 Mg Tab PO DAILY [facility] Naloxone HCl 0.2 mg 12/01/20 19:17 Naloxone 0.4 Mg/Ml 1 Ml Vial IV Q2M PRN Opioid Reversal Nitroglycerin 0.4 mg 12/01/20 19:57 Nitroglycerin Sl Tabs 0.4 Mg Tab SUBLINGUAL Q5M PRN Chest Pain Non-Formulary Medication 2 puff 12/01/20 20:00 Budesonide/Glycopyr/Formoterol [Breztri Aerosphere Inhaler] INHALATION RT-BID [facility] Non-Formulary Medication 400 mg 12/01/20 21:00 Magnesium Oxide [Magnesium Oxide] PO HS [facility] Non-Formulary Medication 4 mg 12/01/20 19:55 Nicotine Polacrilex [Nicorette] BUCCAL Q2H PRN Cravings Pantoprazole Sodium 40 mg 12/02/20 07:30 Pantoprazole 40 Mg Tablet PO AC-BRKFST [facility] Prasugrel 10 mg 12/02/20 21:00 Prasugrel 10 Mg Tab PO HS [facility] Prednisone 40 mg 12/02/20 09:00 Prednisone 20 Mg Tab PO DAILY [facility] Sertraline HCl 200 mg 12/02/20 09:00 Sertraline 100 Mg Tab PO DAILY [facility] Topiramate 100 mg 12/01/20 21:00 Topiramate 100 Mg Tab PO HS [facility] Zinc Sulfate 220 mg 12/02/20 09:00 Zinc Sulfate 220 Mg Cap PO DAILY [facility] Zolpidem Tartrate 5 mg 12/01/20 19:57 Zolpidem 5 Mg Tab PO HS PRN Insomnia Intake and Output 12/01/20 12/01/20 12/01/20 06:59 14:59 22:59 Intake Total 150 Balance 150 Intake: IV 150 Other: Weight 88.904 kg Patient Weight 12/02/20 06:59 Weight 88.904 kg Assessment and Plan Assessment: Assessment #[address] patient myocardial infarction #2 status post PCI of the RCA #3 significant history of smoking Plan #1 dual antiplatelet therapy #2 high intensity statin #3 anti-ischemic medication #4 an echocardiogram was Doppler #5 follow-up with the patient
[2020-12-01 20:27] LABS: Glucose,Whole Blood 87 mg/dL (75-99)
[2020-12-01] MEDS: ATORVASTATIN 40 MG TAB PO SCH (21:07)
[2020-12-01] MEDS: TOPIRAMATE 100 MG TAB PO SCH (21:08)
[2020-12-01] MEDS: DOXYCYCLINE 100 MG CAP PO SCH (21:08)
[2020-12-01] MEDS: MAGNESIUM OXIDE 400 MG TAB PO SCH (21:08)
--- NOTE | 2020-12-01 22:28 | CC ---
CARDIAC CATHETERIZATION REPORT DATE OF SERVICE: December 01, 2020. PERFORMING PHYSICIAN: Gary Estes MD. PROCEDURE PERFORMED: 1. Selective right and left coronary angiogram. 2. Left heart catheterization. 3. Successful stenting of the mid right coronary artery using 4.0 x 28 mm Xience drug- eluting stent which was post-dilated using 4.5 mm NC balloon with an excellent angiographic results and reduction of stenosis from 95% to 0%. 4. Acute inferior ST-elevation myocardial infarction. COMPLICATION: None. LEVEL OF SEDATION: Moderate with sedation length of 26 minutes. PROCEDURE DESCRIPTION: After obtaining an informed consent, the patient was brought to the cardiac lab rn. The right common femoral artery was cannulated using micropuncture technique and a micropuncture wire passed easily. Then I placed a 6-Japanese sheath at the right common femoral artery. After that, anticoagulation was initiated using heparin. Please note that I tried to access the right radial artery, but the right radial pulse is very diminished. I did selective right and left coronary angiogram using JR4 and JL-4. The JL4 catheters. After that I did intervene on the RCA. Please see a separate paragraph for that. After that I did left heart catheterization. The procedure was completed without any complication. SELECTIVE CORONARY ANGIOGRAM: 1. The right coronary artery is a large caliber vessel and is a dominant vessel. The RCA has lesion in the midportion appeared to be in the range of 95%. The RCA is calcified. Proximally and distally is angiographically normal. 2. The left main is angiographically normal. It bifurcates into left circumflex and left anterior descending artery. 3. The left circumflex is a moderate caliber vessel. It is a nondominant vessel. The left circumflex has mild diffuse disease only. 4. The LAD is a large caliber vessel. The LAD is angiographically normal proximally. It gives rise into a large diagonal branch which seems to be angiographically normal. The mid LAD and distal LAD appeared to be angiographically normal. PCI OF THE RCA: Anticoagulation was achieved using heparin with continuous ACT monitoring throughout the procedure. Subsequently, I did engage the RCA using JR4 guide. I did wire it using a run-through wire. After that, I did direct stenting on the lesion using 4.5 x 28 mm Xience drug- eluting stent where the stent was positioned under fluoroscopy guidance and deployed under 18 atmospheres for 20 seconds. The stent was dilated using 4.5 mm NC balloon. The final angiogram showed excellent angiographic results and the procedure was completed without any complication. HEMODYNAMICS: The LVEDP was 20 mmHg without significant gradient across aortic valve. CONCLUSION: 1. Acute inferior ST-elevation myocardial infarction. 2. Critical disease involving the mid right coronary artery which is calcified vessel. 3. Successful stenting of the mid RCA using 4.0 x 28 mm Xience drug-eluting stent which was post-dilated using 4.5 mm NC balloon with an excellent angiographic results. 4. Mild disease involving the left coronary system. 5. Elevated LVEDP. POSTPROCEDURE MANAGEMENT: 1. Dual anti-platelet therapy. 2. The patient is intolerant to Lipitor. I am going to start her on Crestor. 3. Anti-ischemic medication. 4. An echocardiogram with Doppler. 5. Follow up with the patient. PABLO / MORENA: [id number] /
[2020-12-02 04:07] LABS: Anisocytosis Slight; Basophils # (A) 0.1 k/uL (0-0.2); Basophils % (A) 0 %; Eosinophils # (A) 0.3 k/uL (0-0.7); Eosinophils % (A) 2 %; HCT 36.3 % (34.0-46.0); HGB 12.2 gm/dL (11.4-16.0); Lymphocytes # (A) 2.5 k/uL (1.0-4.8); Lymphocytes % (A) 15 %; MCH 28.8 pg (25.0-35.0); MCHC 33.7 g/dL (31.0-37.0); MCV 85.4 fL (80.0-100.0); Mean Platelet Volume 7.6; Monocytes # (A) 0.7 k/uL (0-1.0); Monocytes % (A) 4 %; Neutrophils # (A) 13.5 k/uL (1.3-7.7); Neutrophils % (A) 78 %; Platelet Count 285 k/uL (150-450); RBC 4.25 m/uL (3.80-5.40); RDW 16.5 % (11.5-15.5); WBC 17.2 k/uL (3.8-10.6)
[2020-12-02 04:24] LABS: ALT 72 U/L (4-34); AST 355 U/L (14-36); African American GFR (CKD) >90 (>60 ml/min/1.73 sqM); Albumin 3.3 g/dL (3.5-5.0); Alkaline Phosphatase 112 U/L (38-126); Anion Gap 3 mmol/L; Blood Urea Nitrogen 12 mg/dL (7-17); Calcium 8.8 mg/dL (8.4-10.2); Carbon Dioxide 28 mmol/L (22-30); Chloride 106 mmol/L (98-107); Glucose 134 mg/dL (74-99); Non-African American GFR(CKD) >90 (>60 ml/min/1.73 sqM); Sodium 137 mmol/L (137-145); Total Bilirubin 0.2 mg/dL (0.2-1.3); Total Protein 5.8 g/dL (6.3-8.2)
[2020-12-02] MEDS: PANTOPRAZOLE 40 MG TABLET PO SCH (06:30)
[2020-12-02] MEDS: HYDROmorphone 0.5 MG/0.5 ML SYRINGE IVP PRN ×3 (06:30→21:02)
--- NOTE | 2020-12-02 06:33 | P.PN ---
Subjective Progress Note Date: 12/02/20 Principal diagnosis: Acute coronary syndrome This is a pleasant 60-year-old female patient was significant history of smoking who was admitted to the hospital was acute inferior ST elevation myocardial infarction where subsequently she underwent a heart catheterization and was f ound to have severe disease involving the mid RCA which was a stented using drug-eluting stent. The patient was seen today. She is asymptomatic. The right groin is soft and nontender and without any bruises. She is stable hemodynamically and she can be transferred out of the intensive care unit. She is on dual antiplatelet therapy along with statin. She has been maintaining normal sinus mechanism. Objective - Vital Signs Vital signs: Vital Signs Temp 98.1 F 12/02/20 04:00 Pulse 78 12/02/20 06:00 Resp 15 12/02/20 06:00 BP 110/65 12/02/20 06:00 Pulse Ox 94 L 12/02/20 06:00 Intake & Output 12/01/20 12/01/20 12/02/20 06:59 18:59 06:59 Intake Total 700 Output Total 1250 Balance -550 Weight 88.904 kg 88.4 kg Intake: IV 700 Sodium Chloride 0.9% 1, 550 000 ml @ 75 mls/hr IV . [id number] [facility] Rx#:[id number] Output: Urine 1250 Other: Voiding Method External Catheter # Voids 1 - Constitutional General appearance: Present: no acute distress - Respiratory Respiratory: bilateral: CTA - Cardiovascular Rhythm: regular Heart sounds: normal: S1, S2 - Labs CBC & Chem 7: 12/02/20 03:52 12/02/20 03:52 Labs: Abnormal Lab Results - Last 24 Hours (Table) 12/02/20 12/02/20 Range/Units 03:52 03:52 WBC 17.2 H (3.8-10.6) k/uL RDW 16.5 H (11.5-15.5) % Neutrophils # 13.5 H (1.3-7.7) k/uL Glucose 134 H (74-99) mg/dL AST 355 H (14-36) U/L ALT 72 H (4-34) U/L Total Protein 5.8 L (6.3-8.2) g/dL Albumin 3.3 L (3.5-5.0) g/dL Assessment and Plan Assessment: Assessment #[address] patient myocardial infarction #2 status post PCI of the RCA #3 significant history of smoking Plan #1 dual antiplatelet therapy #2 obtain an echocardiogram was Doppler #3 the patient can be transferred out of the ICU
[2020-12-02] MEDS: IPRATROPIUM 0.5 MG/2.5 ML NEBU INHALATION SCH ×4 (07:48→21:39)
[2020-12-02] MEDS: SYMBICORT 80-4.5 MCG INHALER INHALATION SCH ×2 (08:38→21:39)
[2020-12-02] MEDS ORDERED: VITAMIN A 2400 MCG PO SCH (09:00)
[2020-12-02] MEDS ORDERED: [UNRECOGNIZED DRUG - OTHER] SL SCH (09:00)
[2020-12-02] MEDS ORDERED: NON FORMULARY DRUG (Vitamin B Complex [Vitamin B Complex] 1 EACH Capsule) PO SCH (09:00)
[2020-12-02] MEDS ORDERED: NON FORMULARY DRUG (Buprenorphine Hcl/Naloxone Hcl [Suboxone 8 Mg-2 Mg Sl Film] 1 EACH Fil SL SCH (09:00)
[2020-12-02] MEDS ORDERED: NON FORMULARY DRUG (Atomoxetine Hcl [Strattera] 80 MG Capsule) PO SCH (09:00)
[2020-12-02] MEDS ORDERED: BUPRENORPHINE HCL SL SCH (09:00)
[2020-12-02] MEDS ORDERED: NALOXONE HCL SL SCH (09:00)
[2020-12-02] MEDS: SPIRONOLACTONE 25 MG TAB PO SCH (09:16)
[2020-12-02] MEDS: ZINC SULFATE 220 MG CAP PO SCH (09:16)
[2020-12-02] MEDS: predniSONE 20 MG TAB PO SCH (09:16)
[2020-12-02] MEDS: SERTRALINE 100 MG TAB PO SCH (09:17)
[2020-12-02] MEDS: DOXYCYCLINE 100 MG CAP PO SCH ×2 (09:17→21:02)
[2020-12-02] MEDS: CHOLECALCIFEROL 25 MCG (1000 IU) TABLET PO SCH (09:17)
[2020-12-02] MEDS: LORATADINE 10 MG TAB PO SCH (09:18)
[2020-12-02] MEDS: FLUTICASONE 50MCG/SPRAY NASAL 16GM EA NOSTRIL SCH (09:18)
[2020-12-02] MEDS: MONTELUKAST 10 MG TAB PO SCH (09:18)
[2020-12-02] MEDS: METOPROLOL SUCCINATE (ER) 25 MG TAB.ER.24H PO SCH (09:18)
[2020-12-02] MEDS: ASPIRIN 81 MG PO SCH (09:18)
--- NOTE | 2020-12-02 11:15 | P.HPIM ---
History of Present Illness This is a pleasant 60 years old female with past medical history of diabetes mellitus, chronic back pain status post back surgery, anxiety and depression and nicotine dependence. Her PCP is blaise Frias presents because of worsening chest pain over 2 hours although she had it for about one week, in the middle of the chest radiating to the left arm, felt like burning sensation, about 90/10 in severity and currently 0/10, she went initially to [facility] before she was transferred here. N. No. However she is complaining of from coughing with right lower chest pain on coughing . She's currently every day smoker about three quarters of a pack per day. No alcohol or illicit tracts. on admission patient was taken to cardiac assistant laboratory director from the emergency room with Dr. Estes. She is hemodynamically stable. Labs showing mild leukocytosis of 17.2 K. Rest of CBC is unremarkable. BMP is unremarkable as well. She has elevated liver enzymes with AST 355 and ALT is 72. EKG: Normal sinus rhythm at 73 with T-wave inversion in lead III and aVF. She had cardiac cath showing the RCA status post successful stenting of the mid RCA. Review of Systems CONSTITUTIONAL: No fever, no malaise, no fatigue. HEENT: No recent visual problems or hearing problems. Denied any sore throat. CARDIOVASCULAR: No orthopnea, PND, no palpitations, no syncope. PULMONARY: No shortness of breath,no hemoptysis. GASTROINTESTINAL: No diarrhea, no nausea, no vomiting, Normoactive bowel sounds. NEUROLOGICAL: No headaches, no weakness, no numbness. HEMATOLOGICAL: Denies any bleeding or petechiae. GENITOURINARY: Denies any burning micturition, frequency, or urgency. MUSCULOSKELETAL/RHEUMATOLOGICAL: Denies any joint pain, swelling, or any muscle pain. ENDOCRINE: Denies any polyuria or polydipsia. Past Medical History Past Medical History: Chest Pain / Angina, Diabetes Mellitus Additional Past Medical History / Comment(s): lower back pain, no current problems w/diabetes since weight loss, History of Any Multi-Drug Resistant Organisms: None Reported Past Surgical History: Back Surgery, Bariatric Surgery, Cholecystectomy, Hysterectomy, Orthopedic Surgery, Tubal Ligation Additional Past Surgical History / Comment(s): neck and back surgery x 4, carpal tunnel bilateral, rouxen y-gastric bypass, EGD Past Anesthesia/Blood Transfusion Reactions: No Reported Reaction Past Psychological History: Anxiety, Depression Smoking Status: Current every day smoker Past Alcohol Use History: None Reported Past Drug Use History: None Reported - Past Family History Mother Family Medical History: Congestive Heart Failure (CHF) Father Family Medical History: Respiratory Disorder Medications and Allergies Home Medications Medication Instructions Recorded Confirmed Type Sertraline [Zoloft] 200 mg PO DAILY 11/30/19 12/01/20 History Buprenorphine HCl/Naloxone HCl 1 film SL DAILY 12/05/19 12/01/20 History [Suboxone 12 mg-3 mg Sl Film] Buprenorphine HCl/Naloxone HCl 1 film SL DAILY 12/05/19 12/01/20 History [Suboxone 8 mg-2 mg Sl Film] ARIPiprazole [Abilify] 20 mg PO DAILY 12/01/20 12/01/20 History Albuterol Sulfate [Ventolin HFA] 2 puff INHALATION RT-Q4H 12/01/20 12/01/20 History Atomoxetine HCl [Strattera] 80 mg PO DAILY 12/01/20 12/01/20 History Budesonide/Glycopyr/Formoterol 2 puff INHALATION RT-BID 12/01/20 12/01/20 History [Breztri Aerosphere Inhaler] Cetirizine HCl [Zyrtec] 10 mg PO DAILY 12/01/20 12/01/20 History Cholecalciferol (Vitamin D3) 250 mcg PO DAILY 12/01/20 12/01/20 History [Vitamin D3 (5000 Iu)] Doxycycline Monohydrate [Monodox] 100 mg PO BID 12/01/20 12/01/20 History Fluticasone Nasal Superior [Flonase 1 spray EA NOSTRIL DAILY 12/01/20 12/01/20 History Nasal Superior] Furosemide [Lasix] 20 mg PO MOWEFR 12/01/20 12/01/20 History Ipratropium-Albuterol Nebulize 3 ml INHALATION RT-QID PRN 12/01/20 12/01/20 History [Duoneb 0.5 mg-3 mg/3 ml Soln] Magnesium Oxide 400 mg PO HS 12/01/20 12/01/20 History Montelukast [Singulair] 10 mg PO DAILY 12/01/20 12/01/20 History Nicotine Polacrilex [Nicorette] 4 mg BUCCAL Q2H PRN 12/01/20 12/01/20 History Pantoprazole Sodium [Protonix] 40 mg PO DAILY 12/01/20 12/01/20 History Topiramate [Topamax] 100 mg PO HS 12/01/20 12/01/20 History Vitamin A 2,400 mcg PO DAILY 12/01/20 12/01/20 History Vitamin B Complex 1 cap PO DAILY 12/01/20 12/01/20 History Zinc 50 mg PO DAILY 12/01/20 12/01/20 History predniSONE [Deltasone] 40 mg PO DAILY 12/01/20 12/01/20 History Allergies Allergy/AdvReac Type Severity Reaction Status Date / Time atorvastatin calcium Allergy Anaphylaxis Verified 12/01/20 19:44 [From Lipitor] citalopram [From Celexa] Allergy Unknown Verified 12/01/20 19:44 NSAIDS (Non-Steroidal Allergy Unknown Verified 12/01/20 19:44 Anti-Inflamma pregabalin [From Lyrica] Allergy Anaphylaxis Verified 12/01/20 19:44 rosuvastatin calcium Allergy Anaphylaxis Verified 12/01/20 19:44 [From Crestor] duloxetine [From Cymbalta] AdvReac Nausea Verified 12/01/20 19:44 Physical Exam Vitals: Vital Signs Temp Pulse Resp BP Pulse Ox 12/02/20 10:00 70 18 130/73 12/02/20 09:00 76 16 110/75 93 L 12/02/20 08:00 97.9 F 72 16 118/67 97 12/02/20 07:57 78 12/02/20 07:49 77 12/02/20 07:00 69 12 110/64 96 12/02/20 06:00 78 15 110/65 94 L 12/02/20 05:00 73 10 L 118/57 95 12/02/20 04:00 98.1 F 71 13 119/62 92 L 12/02/20 03:00 73 12 128/66 93 L 12/02/20 02:00 79 14 137/62 94 L 12/02/20 01:00 70 15 114/81 95 12/02/20 00:00 98.3 F 75 10 L 131/77 93 L 12/01/20 23:49 71 12 131/77 93 L 12/01/20 23:30 71 16 135/79 95 12/01/20 23:00 70 20 153/83 95 12/01/20 22:30 69 13 150/89 97 12/01/20 22:00 68 12 143/83 96 12/01/20 21:00 70 19 113/73 97 12/01/20 20:30 98.0 F 68 13 121/79 94 L 12/01/20 20:24 69 13 95 12/01/20 19:19 98 F 82 20 137/78 100 12/01/20 18:51 82 20 137/78 100 12/01/20 18:34 98 F 78 20 116/68 100 Intake and Output 12/01/20 12/02/20 12/02/20 22:59 06:59 14:59 Intake Total 375 325 280 Output Total 1250 800 Balance 009 -093 -520 Intake: IV 375 325 40 Sodium Chloride 0.9% 1, 225 325 40 000 ml @ 75 mls/hr IV . [id number] [facility] Rx#:[id number] Oral 240 Output: Urine 1250 800 Other: Voiding Method External Catheter External Catheter Toilet # Voids 1 Weight 88.904 kg 88.4 kg -GENERAL: The patient is alert and oriented x3, not in any acute distress. Morbidly obese HEENT: Pupils are round and equally reacting to light. EOMI. No scleral icterus. No conjunctival pallor. Normocephalic, atraumatic. No pharyngeal erythema. No th yromegaly. CARDIOVASCULAR: S1 and S2 present. No murmurs, rubs, or gallops. PULMONARY: Chest is clear to auscultation, no wheezing or crackles. -ABDOMEN: Soft, mild right upper quadrant tenderness with coughing, nondistended, normoactive bowel sounds. No palpable organomegaly. MUSCULOSKELETAL: No joint swelling or deformity. EXTREMITIES: No cyanosis, clubbing, or pedal edema. NEUROLOGICAL: Gross neurological examination did not reveal any focal deficits. SKIN: No rashes. No petechiae Results CBC & Chem 7: 12/02/20 03:52 12/02/20 03:52 Labs: Abnormal Lab Results - Last 24 Hours (Table) 12/02/20 12/02/20 Range/Units 03:52 03:52 WBC 17.2 H (3.8-10.6) k/uL RDW 16.5 H (11.5-15.5) % Neutrophils # 13.5 H (1.3-7.7) k/uL Glucose 134 H (74-99) mg/dL AST 355 H (14-36) U/L ALT 72 H (4-34) U/L Total Protein 5.8 L (6.3-8.2) g/dL Albumin 3.3 L (3.5-5.0) g/dL Thrombosis Risk Factor Assmnt - Choose All That Apply Any of the Below Risk Factors Present?: Yes Each Factor Represents 1 point: Acute [place], Age 41-60 years, Medical pt on bed rest, Obesity (BMI >25) Other Risk Factors: Yes Each Risk Factor Represents 2 Points: Patient confined to bed Other congenital or acquired thrombophilia - If yes, enter type in comment: No Thrombosis Risk Factor Assessment Total Risk Factor Score: 6 Thrombosis Risk Factor Assessment Level: High Risk Assessment and Plan Assessment: None STEMI, status post PCI and stenting of the mid RCA Nicotine dependence Elevated liver enzymes Coughing COPD with possible mild exacerbation Morbid obesity Plan: This is a pleasant 60 years old female who presents with coronary artery disease status post stenting of the RCA. A 12 antiplatelet therapy. Check echocardiogram. Follow-up with his retail gift card merchandising team recommendation If her ultrasound. Check repeat chest x-ray. Continue with aspirin 81 mg and if he and 10 mg. Continue with prednisone and doxycycline Labs and medication were reviewed.. Continue same treatment. Continue with symptomatic treatment. Resume home medication. Monitor lytes and vitals. DVT and GI prophylaxis. Further recommendations depends on the clinical course of the patient DVT prophylaxis: Subcutaneous heparin GI Prophylaxis: Pepcid PT/OT: Pending Prognosis is guarded
--- NOTE | 2020-12-02 12:04 | XR ---
EXAMINATION TYPE: XR chest 1V DATE OF EXAM: 12/02/2020 COMPARISON: 09/02/2013 INDICATION: Coughing TECHNIQUE: Single frontal view of the chest is obtained. FINDINGS: The heart size is normal limits. There are some rounded density along the right mediastinum which scarlett ears to be an interval change. Consider additional evaluation with CT. The pulmonary vasculature is normal. The lungs are clear. IMPRESSION: 1. No suspicious infiltrates evident. 2. New rounded density within the right mediastinum of uncertain etiology. Consider CT chest for terese tional evaluation.
--- NOTE | 2020-12-02 15:08 | US ---
EXAMINATION TYPE: US liver DATE OF EXAM: 12/02/2020 COMPARISON: CT CLINICAL HISTORY: elevated liver enzymes. Right lateral abdominal pain x 1 week; patient is post brian nary artery stent yesterday; prior gastric bypass surgery and laparoscopic cholecystectomy; takes mul tiple medications for anxiety and depression EXAM MEASUREMENTS: Liver Length: 14.8 cm Gallbladder Wall: surgically removed CBD: 0.7 cm Right Kidney: 8.9 x 4.8 x 4.2 cm Pancreas: hyperechoic; tail obscured by overlying bowel gas Liver: increased periportal wall brightness is seen in all liver lobes; lobular border noted inferio r right lobe Gallbladder: surgically removed Evidence for sonographic Leonard's sign: right lateral abdominal pain present with probe pressure CBD: wnl post cholecystectomy Right Kidney: No hydronephrosis or masses seen; thin hypoechoic, extracapsular, crescent shaped area is noted mid inferior renal area and suggests sonographic "sweat sign" for renal failure. IMPRESSION: No discrete liver mass. No dilated ducts. No evidence of renal mass or obstruction. No evidence of pancreatic mass.
[2020-12-02] MEDS: PRASUGREL 10 MG TAB PO SCH (21:02)
[2020-12-02] MEDS: ATORVASTATIN 40 MG TAB PO SCH (21:02)
[2020-12-02] MEDS: MAGNESIUM OXIDE 400 MG TAB PO SCH (21:02)
[2020-12-02] MEDS: TOPIRAMATE 100 MG TAB PO SCH (21:03)
[2020-12-03 04:01] LABS: Anisocytosis Slight; Basophils # (A) 0.1 k/uL (0-0.2); Basophils % (A) 0 %; Eosinophils # (A) 0.4 k/uL (0-0.7); Eosinophils % (A) 2 %; HCT 37.3 % (34.0-46.0); HGB 12.2 gm/dL (11.4-16.0); Lymphocytes % (A) 21 %; MCH 27.9 pg (25.0-35.0); MCHC 32.8 g/dL (31.0-37.0); Mean Platelet Volume 7.1; Monocytes # (A) 0.9 k/uL (0-1.0); Monocytes % (A) 5 %; Neutrophils # (A) 13.2 k/uL (1.3-7.7); Neutrophils % (A) 71 %; Platelet Count 314 k/uL (150-450); RBC 4.38 m/uL (3.80-5.40); RDW 16.4 % (11.5-15.5); WBC 18.7 k/uL (3.8-10.6)
[2020-12-03 04:13] LABS: ALT 57 U/L (4-34); AST 93 U/L (14-36); African American GFR (CKD) >90 (>60 ml/min/1.73 sqM); Albumin 3.6 g/dL (3.5-5.0); Alkaline Phosphatase 118 U/L (38-126); Anion Gap 7 mmol/L; Bilirubin, Delta 0.1 mg/dL (0.0-0.2); Bilirubin,Unconjugated 0.1 mg/dL (0.0-1.1); Blood Urea Nitrogen 13 mg/dL (7-17); Calcium 9.4 mg/dL (8.4-10.2); Carbon Dioxide 25 mmol/L (22-30); Chloride 105 mmol/L (98-107); Glucose 115 mg/dL (74-99); Magnesium 2.2 mg/dL (1.6-2.3); Non-African American GFR(CKD) >90 (>60 ml/min/1.73 sqM); Potassium 4.1 mmol/L (3.5-5.1); Sodium 137 mmol/L (137-145); Total Bilirubin 0.2 mg/dL (0.2-1.3); Total Protein 6.3 g/dL (6.3-8.2)
[2020-12-03] MEDS: HYDROmorphone 0.5 MG/0.5 ML SYRINGE IVP PRN ×2 (06:45→13:07)
[2020-12-03] MEDS: PANTOPRAZOLE 40 MG TABLET PO SCH (06:45)
[2020-12-03] MEDS: SYMBICORT 80-4.5 MCG INHALER INHALATION SCH ×2 (08:35→19:49)
[2020-12-03] MEDS: IPRATROPIUM 0.5 MG/2.5 ML NEBU INHALATION SCH ×4 (08:35→19:49)
[2020-12-03] MEDS ORDERED: FUROSEMIDE 20 MG TAB PO SCH (09:00)
[2020-12-03] MEDS: CHOLECALCIFEROL 25 MCG (1000 IU) TABLET PO SCH (09:06)
[2020-12-03] MEDS: ASPIRIN 81 MG PO SCH (09:06)
[2020-12-03] MEDS: FLUTICASONE 50MCG/SPRAY NASAL 16GM EA NOSTRIL SCH (09:07)
[2020-12-03] MEDS: METOPROLOL SUCCINATE (ER) 25 MG TAB.ER.24H PO SCH (09:07)
[2020-12-03] MEDS: LORATADINE 10 MG TAB PO SCH (09:07)
[2020-12-03] MEDS: DOXYCYCLINE 100 MG CAP PO SCH ×2 (09:07→20:17)
[2020-12-03] MEDS: SERTRALINE 100 MG TAB PO SCH (09:08)
[2020-12-03] MEDS: MONTELUKAST 10 MG TAB PO SCH (09:08)
[2020-12-03] MEDS: predniSONE 20 MG TAB PO SCH (09:08)
[2020-12-03] MEDS: SPIRONOLACTONE 25 MG TAB PO SCH (09:08)
[2020-12-03] MEDS: ZINC SULFATE 220 MG CAP PO SCH (09:08)
[2020-12-03] MEDS: lisinopriL 5 MG TAB PO SCH (09:57)
[2020-12-03 10:34] LABS: Appearance,Urine Clear (Clear); Bilirubin,Urine Negative (Negative); Blood,Urine Negative (Negative); Color,Urine Yellow; Glucose,Urine (UA) Negative (Negative); Ketones,Urine Negative (Negative); Leukocyte Esterase,Urine Small (Negative); Nitrite,Urine Negative (Negative); PH, Urine 6.5 (5.0-8.0); Protein,Urine Negative (Negative); RBC,Urine 1 /hpf (0-5); Specific Gravity,Urine 1.007 (1.001-1.035); Squamous Epithelial Cell,Urine 2 /hpf (0-4); Urobilinogen,Urine <2.0 mg/dL (<2.0); WBC,Urine 2 /hpf (0-5)
--- NOTE | 2020-12-03 11:00 | PN ---
PROGRESS NOTE Ms. Rock is a 60-year-old female who presented with an acute inferior myocardial infarction. She received thrombolytics and subsequently transferred to [facility], underwent cardiac catheterization by Dr. Estes, was found to have critical stenosis in the right coronary artery. She underwent stenting of that vessel. She is doing well this morning, sitting up in the chair. She denies any symptoms of chest pain. She denies any dizziness, palpitation. She denies any nausea. Hemodynamically, she is stable. She continues on aspirin once a day, Abilify, Lipitor 40 mg daily, metoprolol succinate 25 mg daily, Singulair 10 mg daily, Effient 10 mg daily, prednisone 40 mg daily, Topamax, spironolactone 25 mg daily. PHYSICAL EXAMINATION: Blood pressure 120/70 with a heart in 70. Lungs decreased air exchange. No wheezes. Heart rate rhythm S1, S2. No S3. No rub. Abdomen is soft, obese, nontender. Extremities with no edema. LAB DATA: Lab data revealed BUN and creatinine 13 and 0.65, potassium 4.1, hemoglobin 12.2, white blood cell of 18.7. IMPRESSION: 1. Status post stenting of the RCA in the setting of myocardial infarction. 2. History of chronic tobacco use. 3. Prior history of obesity and surgery. 4. Abnormal chest x-ray with questionable mass. RECOMMENDATION: From the cardiac standpoint, will continue present therapy. We will obtain echocardiogram with Doppler. Follow her blood pressure and adjust her medical regimen accordingly. If she is stable, she should be able to be transferred to the telemetry floor and depending on her progress, further recommendation will be made. MMODL / IJN: [id number] /
[2020-12-03 11:37] VITALS: BMI 39.3
--- NOTE | 2020-12-03 12:50 | CT ---
EXAMINATION TYPE: CT chest wo con DATE OF EXAM: 12/03/2020 COMPARISON: None HISTORY: Recent stent placement. CT DLP: 425.1 mGycm, Automated exposure control for dose reduction was used. CONTRAST: Performed injected with 0 mL of Isovue 300. TECHNIQUE: Axial images were obtained at 5 mm thick sections. Reconstructed images are reviewed on [employer] computer in the coronal plane. FINDINGS: Portion of the thyroid visualized is normal. There is mild groundglass opacity within the anterior right upper lung field. Series 204 image 19. So me streak opacities in the right middle lobe and within the lingula may be related to atelectasis. Garvey btle nodules in the periphery of the right lower lobe measuring 0.4 cm. Series 204 image 37. No enlarged mediastinal or hilar adenopathy is evident. The ascending aorta diameter at the level o f the main pulmonary artery is 3.3 cm. The main pulmonary artery diameter at the bifurcation is 2.6 cm. Coronary artery calcification is present Limited CT sections are obtained through the upper abdomen. Abdomen is essentially unremarkable. Dinah ent is status post gastric sleeve. IMPRESSIONS: 1. Mild bibasilar streaky opacities likely on the basis of atelectasis. 2. Small right middle lobe nodule and right upper lung field probably glass opacity. Follow-up chest CT in 6 months is recommended to reevaluate these findings.
--- NOTE | 2020-12-03 17:21 | P.PN ---
Subjective This is a pleasant 60 years old female with past medical history of diabetes mellitus, chronic back pain status post back surgery, anxiety and depression and nicotine dependence. Her PCP is blaise Frias presents because of worsening chest pain over 2 hours although she had it for about one week, in the middle of the chest radiating to the left arm, felt like burning sensation, about 90/10 in severity and currently 0/10, she went initially to [facility] before she was transferred here. N. No. However she is complaining of from coughing with right lower chest pain on coughing . She's currently every day smoker about three quarters of a pack per day. No alcohol or illicit tracts. on admission patient was taken to cardiac pharmaceutical laboratory technician from the emergency room with Dr. Estes. She is hemodynamically stable. Labs showing mild leukocytosis of 17.2 K. Rest of CBC is unremarkable. BMP is unremarkable as well. She has elevated liver enzymes with AST 355 and ALT is 72. EKG: Normal sinus rhythm at 73 with T-wave inversion in lead III and aVF. She had cardiac cath showing the RCA status post successful stenting of the mid RCA. 12/03/2020 Patient with no chest pain or dyspnea. She is hemodynamically stable. Labs showing persistent leukocytosis at 18 K however rest of the CBC is unremarkable. She's afebrile. There is no evidence of infection. Urinalysis is negative. CT of the chest showing right lung nodule that will need follow-up in 6 months. She remains on aspirin and Effient. Lisinopril added today. Echocardiogram: Pending Objective - Vital Signs Vital signs: Vital Signs Temp 97.6 F 12/03/20 16:00 Pulse 67 12/03/20 16:00 Resp 14 12/03/20 16:00 BP 105/74 12/03/20 16:00 Pulse Ox 97 12/03/20 16:00 Intake & Output 12/02/20 12/03/20 12/03/20 18:59 06:59 18:59 Intake Total 580 480 200 Output Total 2200 500 800 Balance -1620 -20 -600 Weight 88.4 kg Intake: IV 40 Sodium Chloride 0.9% 1, 40 000 ml @ 75 mls/hr IV . [id number] [facility] Rx#:[id number] Oral 540 480 200 Output: Urine 2200 500 800 Other: Voiding Method Toilet Toilet Toilet - Labs CBC & Chem 7: 12/03/20 03:35 12/03/20 03:35 Labs: Abnormal Lab Results - Last 24 Hours (Table) 12/03/20 12/03/20 12/03/20 Range/Units 03:35 03:35 10:19 WBC 18.7 H (3.8-10.6) k/uL RDW 16.4 H (11.5-15.5) % Neutrophils # 13.2 H (1.3-7.7) k/uL Glucose 115 H (74-99) mg/dL AST 93 H (14-36) U/L ALT 57 H (4-34) U/L Ur Leukocyte Esterase Small H (Negative) Assessment and Plan Assessment: None STEMI, status post PCI and stenting of the mid RCA Nicotine dependence Right lung nodule Elevated liver enzymes Coughing COPD with possible mild exacerbation Morbid obesity Plan: This is a pleasant 60 years old female who presents with coronary artery disease status post stenting of the RCA. Continue with dual antiplatelet therapy. Check echocardiogram. Follow-up with his seeing eye dog teacher team recommendation Continue with aspirin 81 mg and effient 10 mg. Continue with prednisone and doxycycline Labs and medication were reviewed.. Continue same treatment. Continue with symptomatic treatment. Resume home medication. Monitor lytes and vitals. DVT and GI prophylaxis. Further recommendations depends on the clinical course of the patient DVT prophylaxis: Subcutaneous heparin GI Prophylaxis: Pepcid
[2020-12-03] MEDS: TOPIRAMATE 100 MG TAB PO SCH (20:17)
[2020-12-03] MEDS: ATORVASTATIN 40 MG TAB PO SCH (20:17)
[2020-12-03] MEDS: MAGNESIUM OXIDE 400 MG TAB PO SCH (20:17)
[2020-12-03] MEDS: PRASUGREL 10 MG TAB PO SCH (20:17)
[2020-12-04 04:18] LABS: African American GFR (CKD) >90 (>60 ml/min/1.73 sqM); Anion Gap 3 mmol/L; Blood Urea Nitrogen 14 mg/dL (7-17); Calcium 9.2 mg/dL (8.4-10.2); Carbon Dioxide 26 mmol/L (22-30); Chloride 108 mmol/L (98-107); Glucose 98 mg/dL (74-99); Non-African American GFR(CKD) >90 (>60 ml/min/1.73 sqM); Potassium 3.8 mmol/L (3.5-5.1); Sodium 137 mmol/L (137-145)
[2020-12-04 04:43] LABS: Anisocytosis Slight; Basophils # (A) 0.1 k/uL (0-0.2); Basophils % (A) 0 %; Eosinophils # (A) 0.3 k/uL (0-0.7); Eosinophils % (A) 2 %; HCT 35.4 % (34.0-46.0); HGB 11.3 gm/dL (11.4-16.0); Lymphocytes # (A) 3.7 k/uL (1.0-4.8); Lymphocytes % (A) 20 %; MCH 27.5 pg (25.0-35.0); MCHC 31.9 g/dL (31.0-37.0); MCV 86.4 fL (80.0-100.0); Mean Platelet Volume 7.2; Monocytes # (A) 0.8 k/uL (0-1.0); Monocytes % (A) 4 %; Neutrophils # (A) 13.2 k/uL (1.3-7.7); Neutrophils % (A) 72 %; Platelet Count 304 k/uL (150-450); RDW 16.7 % (11.5-15.5); WBC 18.3 k/uL (3.8-10.6)
[2020-12-04] MEDS ORDERED: POTASSIUM CHLORIDE ER 20 MEQ TAB.ER PO SCH (06:00)
[2020-12-04] MEDS: PANTOPRAZOLE 40 MG TABLET PO SCH (06:32)
[2020-12-04] MEDS: IPRATROPIUM 0.5 MG/2.5 ML NEBU INHALATION SCH ×2 (07:54→11:48)
[2020-12-04] MEDS: SYMBICORT 80-4.5 MCG INHALER INHALATION SCH (07:54)
[2020-12-04] MEDS: MONTELUKAST 10 MG TAB PO SCH (08:28)
[2020-12-04] MEDS: lisinopriL 5 MG TAB PO SCH (08:28)
[2020-12-04] MEDS: SPIRONOLACTONE 25 MG TAB PO SCH (08:28)
[2020-12-04] MEDS: predniSONE 20 MG TAB PO SCH (08:28)
[2020-12-04] MEDS: CHOLECALCIFEROL 25 MCG (1000 IU) TABLET PO SCH (08:28)
[2020-12-04] MEDS: METOPROLOL SUCCINATE (ER) 25 MG TAB.ER.24H PO SCH (08:28)
[2020-12-04] MEDS: ZINC SULFATE 220 MG CAP PO SCH (08:28)
[2020-12-04] MEDS: LORATADINE 10 MG TAB PO SCH (08:28)
[2020-12-04] MEDS: DOXYCYCLINE 100 MG CAP PO SCH (08:29)
[2020-12-04] MEDS: SERTRALINE 100 MG TAB PO SCH (08:30)
[2020-12-04] MEDS: ASPIRIN 81 MG PO SCH (08:37)
[2020-12-04] MEDS: FLUTICASONE 50MCG/SPRAY NASAL 16GM EA NOSTRIL SCH (08:39)
[2020-12-04 09:23] VITALS: BP 114/56; RESP 20; TEMP 98
--- NOTE | 2020-12-04 10:39 | ECHOF ---
Referral Reason:STEMI MEASUREMENTS -------- HEIGHT: 132.1 cm WEIGHT: 85.7 kg BP: RVIDd: 3.0 cm (< 3.3) IVSd: 1.1 cm (0.6 - 1.1) LVIDd: 4.2 cm (3.9 - 5.3) LVPWd: 1.3 cm (0.6 - 1.1) IVSs: 1.6 cm LVIDs: 3.0 cm LVPWs: 1.5 cm LAESV Index (A-L): 28.88 ml/m Ao Diam: 3.3 cm (2.0 - 3.7) AV Cusp: 2.0 cm (1.5 - 2.6) LA Diam: 3.5 cm (2.7 - 3.8) MV EXCURSION: 17.007 mm (> 18.000) MV EF SLOPE: 72 mm/s (70 - 150) EPSS: 0.6 cm MV E Earl: 0.55 m/s MV DecT: 173 ms MV A Earl: 0.76 m/s MV E/A Ratio: 0.73 RAP: 5.00 mmHg RVSP: 11.16 mmHg FINDINGS -------- Sinus rhythm. This was a technically good study. The left ventricular size is normal. There is moderate concentric left ventricular hypertrophy. O verall left ventricular systolic function is low-normal with, an EF between 50 - 55 %. Inferior Hyp okinesis The right ventricle is normal in size. LA is midly dilated 29-33ml/m2. The right atrial size is normal. The aortic valve is trileaflet, and appears structurally normal. No aortic stenosis or regurgitation. Mild mitral regurgitation is present. Mild tricuspid regurgitation present. Right ventricular systolic pressure is normal at < 35 mmHg. There is no pulmonic regurgitation present. There is no pericardial effusion. CONCLUSIONS -------- 1. The left ventricular size is normal. 2. There is moderate concentric left ventricular hypertrophy. 3. Overall left ventricular systolic function is low-normal with, an EF between 50 - 55 %. 4. Inferior Hypokinesis 5. The right ventricle is normal in size. 6. LA is midly dilated 29-33ml/m2. 7. The right atrial size is normal. 8. The aortic valve is trileaflet, and appears structurally normal. No aortic stenosis or regurgitati on. 9. Mild mitral regurgitation is present. 10. Mild tricuspid regurgitation present. 11. There is no pericardial effusion. DIRECTOR PUBLIC SERVICE: Elinor Streeter RDCS
--- NOTE | 2020-12-04 11:03 | P.PN ---
Subjective This is a very pleasant 60-year-old female patient with past medical history of chronic nicotine depdence, obesity who underwent gastric bypass surgery. She was transferred from [facility] on 12/01/20 to [facility] for further evaluation and management of acute coronary syndrome. EKG at [place] revealed acute inferior ST patient myocardial infarction. Patient underwent a heart catheterization with Dr. Estes which revealed critical disease involving the mid RCA, left circumflex with mild disease. Subsequently she underwent successful stenting of the RCA. Patient seen and examined in the ICU. No acute distress, she is sitting up in the bedside chair. She denies chest pain, shortness of breath, palpitations, dizziness, nausea. She is hemodynamically stable. Blood pressure 114/56, heart rate 69, afebrile, maintaining oxygen saturations. Laboratory data reviewed, WBC 18.3, Hgb 11.2, Plt 305, Sodium 137, K 3.8, BUN 14, sCr 0.73. She is currently maintained on aspirin 81 mg daily, Lipitor 40 mg daily, metoprolol 6.25 mg daily, Effient 10 mg daily, prednisone 40 mg daily, spironolactone 25mg daily, Topamax, Singulair. Chest CT yesterday revealed mild bibasilar opacities likely on the basis of atelectasis, small right middle lobe nodule in right upper lung field peripheral opacity. Follow-up chest CT in 6 months recommended. Echocardiogram revealed- EF 50-55%, inferior hypokinesis, mild regurgitation, mild tricuspid regurgitation. GENERAL: Well-appearing, well-nourished and in no acute distress. NECK: Supple without JVD or thyromegaly. LUNGS: Breath sounds clear to auscultation bilaterally. Respiration equal and unlabored. No wheezes, rales or rhonchi. HEART: Regular rate and rhythm without murmurs, rubs or gallops. S1 and S2 heard. SKIN: Right Femoral Cath site clean dry, intact, no hematoma 2+ peripheral pulses EXTREMITIES: Normal range of motion, no edema. No clubbing or cyanosis. 2+ Peripheral pulses intact. ASSESSMENT: Acute Inferior ST Elevation [place] s/p stenting of the RCA History of chronic nicotine dependence History of Obesity s/p surgery PLAN: Echocardiogram obtained and reviewed. From a cardiology standpoint, we will continue present therapy. Patient is hemodynamically stable and stable for discharge. Patient states she does not take prednisone 40mg daily at home, however, has been on prednisone 40mg daily sine 12/02 while inpatient, will defer to primary team for prednisone medication/taper. Patient to follow up with Dr. Estes closely in the office in about 1 week. Discussed emphasis on medication adherence and smoking cessation with patient. Objective - Vital Signs Vital signs: Vital Signs Temp 98.4 F 12/04/20 04:00 Pulse 75 12/04/20 08:08 Resp 12 12/04/20 04:00 BP 121/66 12/04/20 04:00 Pulse Ox 97 12/04/20 04:00 Intake & Output 12/03/20 12/04/20 12/04/20 18:59 06:59 18:59 Intake Total 800 200 Output Total 2200 1800 Balance -1400 -1600 Weight 88.4 kg 85.8 kg Intake: Oral 800 200 Output: Urine 2200 1800 Other: Voiding Method Toilet Toilet - Labs CBC & Chem 7: 12/04/20 03:30 12/04/20 03:30 Labs: Abnormal Lab Results - Last 24 Hours (Table) 12/03/20 12/04/20 12/04/20 Range/Units 10:19 03:30 03:30 WBC 18.3 H (3.8-10.6) k/uL Hgb 11.3 L (11.4-16.0) gm/dL RDW 16.7 H (11.5-15.5) % Neutrophils # 13.2 H (1.3-7.7) k/uL Chloride 108 H (98-107) mmol/L Ur Leukocyte Esterase Small H (Negative)
[2020-12-04 11:58] VITALS: PULSE 68
--- NOTE | 2020-12-05 08:18 | P.DS ---
Providers Date of admission: 12/01/20 19:17 Attending physician: Omid Jean-Baptiste Consults: 12/01/20 19:18 Consult Physician Urgent Consulting Provider: [facility] Consult Reason/Comments: acute chest pain, STEMI Do you want consulting provider notified?: Already Contacted 12/01/20 19:57 Consult Physician Routine Consulting Provider: [facility] Consult Reason/Comments: Post Interventional patient Do you want consulting provider notified?: Already Contacted Primary care physician: Physician Nonstaff Hospital Course: diagnoses: None STEMI, status post PCI and stenting of the mid RCA Nicotine dependence Right lung nodule, that will need follow-up in 6 months. And PCP are aware Elevated liver enzymes, trending down Leukocytosis secondary to steroid effect. COPD with possible mild exacerbation. Patient is already on prednisone and doxycycline which her home medication Morbid obesity hospital course: This is a pleasant 60 years old female with past medical history of diabetes mellitus, chronic back pain status post back surgery, anxiety and depression and nicotine dependence. Her PCP is blaise Frias presents because of worsening chest pain over 2 hours although she had it for about one week, patient evaluated by [employer] and found to have non-STEMI, she underwent cardiac cath with stent placement in the mid RCA. Procedure patient feels much better with chest pain resolved. She denies dyspnea. No other complaint. Echocardiogram showed ejection fraction 50-55% with inferior wall hypokinesia. Patient is started on aspirin and Effient. Patient was cleared for discharge by [employer] and patient was eager to go home today. Chest x-ray and CT of the chest showed right lung nodule that will need follow- up in 6 months per radiologist patient is informed and she agrees. Patient was cleared for discharge by [employer] Problems and management plan were discussed with the patient and he verbalized understanding and acceptance Patient was found stable and can be discharged home [place] guarded prognosis however he needs follow-up as an outpatient. Patient was instructed to follow up with PCP KODI Mccray within one week and patient agrees With the appointments made for her at 12/11. I called KODI Mccray and discussed the case with her including the findings of long nodule that needs follow-up as an outpatient and she currently took note of that. Also about her leukocytosis and steroids. Patient also says that she has cassandra developer and that she has his contact information at [facility], patient was instructed to follow up with him and she agrees as well Physical exam Gen: patient is a AAOx3, no distress CVS: S1-S2, RRR, no murmur Lungs: B/L CTA, no wheezing Abdomen: soft, no distention, no tenderness, positive bowel sounds Extremity: no leg edema or induration Time spent more than 35 minutes Patient Condition at Discharge: Serious Plan - Discharge Summary Discharge Rx Participant: No New Discharge Prescriptions: New Prasugrel [Effient] 10 mg PO HS 30 Days #30 tab Atorvastatin [Lipitor] 40 mg PO HS #30 tab Metoprolol Succinate (ER) [Toprol XL] 25 mg PO DAILY #30 tab.er.24h lisinopriL [Zestril] 5 mg PO DAILY #30 tab Spironolactone [Aldactone] 25 mg PO DAILY #30 tab Aspirin 81 mg PO DAILY #30 chew Nitroglycerin Sl Tabs [Nitrostat] 0.4 mg SUBLINGUAL Q5M PRN #20 tab PRN Reason: Chest Pain Continue Sertraline [Zoloft] 200 mg PO DAILY Buprenorphine HCl/Naloxone HCl [Suboxone 12 mg-3 mg Sl Film] 1 film SL DAILY Buprenorphine HCl/Naloxone HCl [Suboxone 8 mg-2 mg Sl Film] 1 film SL DAILY Zinc 50 mg PO DAILY Cetirizine HCl [Zyrtec] 10 mg PO DAILY Nicotine Polacrilex [Nicorette] 4 mg BUCCAL Q2H PRN PRN Reason: Cravings Doxycycline Monohydrate [Monodox] 100 mg PO BID Budesonide/Glycopyr/Formoterol [Breztri Aerosphere Inhaler] 2 puff INHALATION RT-BID ARIPiprazole [Abilify] 20 mg PO DAILY Vitamin A 2,400 mcg PO DAILY Cholecalciferol (Vitamin D3) [Vitamin D3 (5000 Iu)] 250 mcg PO DAILY Albuterol Sulfate [Ventolin HFA] 2 puff INHALATION RT-Q4H Topiramate [Topamax] 100 mg PO HS Montelukast [Singulair] 10 mg PO DAILY Atomoxetine HCl [Strattera] 80 mg PO DAILY predniSONE [Deltasone] 40 mg PO DAILY Pantoprazole Sodium [Protonix] 40 mg PO DAILY Magnesium Oxide 400 mg PO HS Ipratropium-Albuterol Nebulize [Duoneb 0.5 mg-3 mg/3 ml Soln] 3 ml INHALATION RT-QID PRN PRN Reason: Shortness Of Breath Furosemide [Lasix] 20 mg PO MOWEFR Fluticasone Nasal [place] [Flonase Nasal [place]] 1 spray EA NOSTRIL DAILY Vitamin B Complex 1 cap PO DAILY Discharge Medication List Sertraline [Zoloft] 200 mg PO DAILY 11/30/19 [History] Buprenorphine HCl/Naloxone HCl [Suboxone 12 mg-3 mg Sl Film] 1 film SL DAILY 12/05/19 [History] Buprenorphine HCl/Naloxone HCl [Suboxone 8 mg-2 mg Sl Film] 1 film SL DAILY 12/05/19 [History] ARIPiprazole [Abilify] 20 mg PO DAILY 12/01/20 [History] Albuterol Sulfate [Ventolin HFA] 2 puff INHALATION RT-Q4H 12/01/20 [History] Atomoxetine HCl [Strattera] 80 mg PO DAILY 12/01/20 [History] Budesonide/Glycopyr/Formoterol [Breztri Aerosphere Inhaler] 2 puff INHALATION RT-BID 12/01/20 [History] Cetirizine HCl [Zyrtec] 10 mg PO DAILY 12/01/20 [History] Cholecalciferol (Vitamin D3) [Vitamin D3 (5000 Iu)] 250 mcg PO DAILY 12/01/20 [History] Doxycycline Monohydrate [Monodox] 100 mg PO BID 12/01/20 [History] Fluticasone Nasal [place] [Flonase Nasal [place]] 1 spray EA NOSTRIL DAILY 12/01/20 [History] Furosemide [Lasix] 20 mg PO MOWEFR 12/01/20 [History] Ipratropium-Albuterol Nebulize [Duoneb 0.5 mg-3 mg/3 ml Soln] 3 ml INHALATION RT-QID PRN 12/01/20 [History] Magnesium Oxide 400 mg PO HS 12/01/20 [History] Montelukast [Singulair] 10 mg PO DAILY 12/01/20 [History] Nicotine Polacrilex [Nicorette] 4 mg BUCCAL Q2H PRN 12/01/20 [History] Pantoprazole Sodium [Protonix] 40 mg PO DAILY 12/01/20 [History] Topiramate [Topamax] 100 mg PO HS 12/01/20 [History] Vitamin A 2,400 mcg PO DAILY 12/01/20 [History] Vitamin B Complex 1 cap PO DAILY 12/01/20 [History] Zinc 50 mg PO DAILY 12/01/20 [History] predniSONE [Deltasone] 40 mg PO DAILY 12/01/20 [History] Prasugrel [Effient] 10 mg PO HS 30 Days #30 tab 12/03/20 [Rx] Aspirin 81 mg PO DAILY #30 chew 12/04/20 [Rx] Atorvastatin [Lipitor] 40 mg PO HS #30 tab 12/04/20 [Rx] Metoprolol Succinate (ER) [Toprol XL] 25 mg PO DAILY #30 tab.er.24h 12/04/20 [Rx] Nitroglycerin Sl Tabs [Nitrostat] 0.4 mg SUBLINGUAL Q5M PRN #20 tab 12/04/20 [Rx] Spironolactone [Aldactone] 25 mg PO DAILY #30 tab 12/04/20 [Rx] lisinopriL [Zestril] 5 mg PO DAILY #30 tab 12/04/20 [Rx] Follow up Appointment(s)/Referral(s): Gary Estes MD [STAFF PHYSICIAN] - 1 Week (Called [facility] patient care secretary stated because this is a new pt to their office that they would call pt with appt date and time. ) Shazia Corado NPC [REFERRING] - 12/11/20 3:00 pm Patient Instructions/Handouts: Left Heart Catheterization (DC), Heart Healthy Diet (DC) Discharge Disposition: HOME SELF-CARE
== END 2020-12-04 12:30 | disposition home or self-care (01) | DRG 247 ==
LOC: EC 18:32 → 2SICU 19:17
PROVIDERS: ADMIT Hospitalist; ATTEND Hospitalist
PROC: 027034Z Dilation of Coronary Artery, One Artery with Drug-eluting Intraluminal Device, Percutaneous Approach (ICD-10-PCS; principal; 2020-12-01 19:10)
PROC: B2111ZZ Fluoroscopy of Multiple Coronary Arteries using Low Osmolar Contrast (ICD-10-PCS; principal; 2020-12-01 19:10)
PROC: 4A023N7 Measurement of Cardiac Sampling and Pressure, Left Heart, Percutaneous Approach (ICD-10-PCS; principal; 2020-12-01 19:10)
DX: I21.19 ST elevation (STEMI) myocardial infarction involving other coronary artery of inferior wall (principal); J44.1 Chronic obstructive pulmonary disease with (acute) exacerbation; J98.11 Atelectasis; E11.9 Type 2 diabetes mellitus without complications; D72.829 Elevated white blood cell count, unspecified; I25.10 Atherosclerotic heart disease of native coronary artery without angina pectoris; I25.84 Coronary atherosclerosis due to calcified coronary lesion; F32.9 Major depressive disorder, single episode, unspecified; T38.0X5A Adverse effect of glucocorticoids and synthetic analogues, initial encounter; F41.9 Anxiety disorder, unspecified; R79.89 Other specified abnormal findings of blood chemistry; R91.1 Solitary pulmonary nodule; E66.9 Obesity, unspecified; Z68.39 Body mass index [BMI] 39.0-39.9, adult; M54.5 Low back pain; G89.29 Other chronic pain; F17.210 Nicotine dependence, cigarettes, uncomplicated; Z71.6 Tobacco abuse counseling; Z79.899 Other long term (current) drug therapy; Z98.84 Bariatric surgery status; Z90.49 Acquired absence of other specified parts of digestive tract; Z87.19 Personal history of other diseases of the digestive system; Z90.710 Acquired absence of both cervix and uterus; Z87.42 Personal history of other diseases of the female genital tract; Z98.51 Tubal ligation status; Z87.39 Personal history of other diseases of the musculoskeletal system and connective tissue; Z98.890 Other specified postprocedural states; Z71.3 Dietary counseling and surveillance; Z88.6 Allergy status to analgesic agent; Z88.8 Allergy status to other drugs, medicaments and biological substances; Z82.49 Family history of ischemic heart disease and other diseases of the circulatory system
CPT/HCPCS: 71045; 71250; 76705; 80048; 80053; 80076; 81001; 83735; 85025; 93005; 93306; 94640; 99285

== ENCOUNTER → 2021-09-09 | Day surgery (SDC) | payer MEDICARE, OTHER ==
[2021-09-05 15:47] VITALS: BMI 38.3
[~2021-09-09] MED LIST changes: +IV FLUID CONTINUATION 750 ML IV ONE; -LACTATED RINGERS 1,000 ML IV SCH; +LIDOCAINE 1% INJ 10MG/ML (20 ML MDV) SQ ONE; +fentaNYL (PF) 50 MCG/ML 2 ML AMP ONE
[2021-09-09] MEDS: fentaNYL (PF) 50 MCG/ML 2 ML AMP IV ONE ×2 (08:10→08:33)
--- NOTE | 2021-09-09 13:24 | P.PCN ---
Date of Procedure: 09/09/21 Operative Findings: TRANSESOPHAGEAL ECHOCARDIOGRAM CONFIGURATION RELEASE MANAGER: LOIDA ASHLEY MD, RPVI INDICATION: The aortic and mitral regurgitation SEDATION: Conscious sedation COMPLICATION: None LEVEL OF SEDATION Moderate to severe elevation length of 10 minutes PROCEDURE DESCRIPTION: After obtaining an informed consent, the patient was brought to transesophageal echocardiogram room. Pulse oximetry and heart monitors were attached to the patient. The patient throat was sprayed using lidocaine. The patient was turned into left lateral position. After that a bite guard was placed. After an appropriate conscious sedation was initiated, the transesophageal echocardiogram was advanced through a bite guard into the mid esophagus. A 2-D echocardiogram images, color Doppler images, continuous wave images, pulse-wave images, of various cardiac structure were performed. After that the transesophageal echocardiogram probe was advanced into the stomach and fixed to obtain transgastric view was. The probe was brought into the mid esophagus. Inter-atrial septum was interrogated using 2D images, color Doppler images, and then contrast study. After that transesophageal echocardiogram was withdrawn out and upon withdrawing the descending thoracic aorta all the way up to the arch was evaluated. FINDING: The left ventricle appeared to be mildly dilated. The left ventricular systolic function is impaired with an ejection fraction of 40%. The right ventricle appeared to be of normal size and function. Aortic valve is bicuspid valve with evidence of fusion of the right and left coronary cusp and evidence of moderate mitral insufficiency. The mitral valve seems to be prolapsing with pauses of the posterior mitral leaflet and evidence of moderate mitral regurgitation. Normal tricuspid valve and pulmonic valve. No evidence of pericardial effusion seen. CONCLUSION: 1. Bicuspid aortic valve with evidence of effusion of the right and left coronary cusp and moderate aortic insufficiency 2. Prolapsing posterior mitral leaflet with moderate mitral regurgitation 3. Impaired LV function with EF around 40% 4. Normal right ventricular dimension and systolic function 5. Normal evidence of pericardial effusion
--- NOTE | 2021-09-09 13:32 | P.PCN ---
Date of Procedure: 09/09/21 Operative Findings: CARDIAC CATHETERIZATION PERFORMING PHYSICIAN: Gary Estes MD, RPVI PROCEDURE PERFORMED: 1. Selective right and left coronary angiogram 2. Left heart catheterization 3. Right heart catheterization 4. Selective right common femoral artery angiogram 5. Ultrasound-guided access of the right common femoral artery and common femoral vein INDICATION: This is a 61-year-old female patient was diagnosed recently with cardiomyopathy with EF around 40% as well as moderate mitral and aortic regurgitation was brought today for further evaluation and she is scheduled to undergo transesophageal echocardiogram as well as a right and left heart catheterization COMPLICATION: None APPROACH: Right common femoral artery LEVEL OF SEDATION: Moderate was sedation length of 31 minutes PROCEDURE DESCRIPTION: After obtaining an informed consent, the patient was brought to cardiac builder's labourer. Local anesthesia was performed using lidocaine subcutaneously. The right common femoral vein was cannulated using micropuncture technique, the micropuncture wire passed easily then I placed an 8-Greek sheath in the right common femoral vein The right common femoral artery was cannulated using Seldinger technique, the guidewire passed easily, following that we advanced a 6 Greek sheath dilator assembly, the wire and dilator were removed and sheath was flushed. Please note that both the artery and the vein were cannulated using micropuncture technique under ultrasound guidance Right heart catheterization was performed using Boston catheter. Selective right and left coronary angiogram using a 6-Greek JR4 and JL catheters. Following that we did left heart catheterization using 6-Greek pigtail catheter. The procedure was completed there was no complication. SELECTIVE CORONARY ANGIOGRAM: The right coronary artery: The RCA is a large caliber vessel and a dominant vessel. The RCA stented in the midportion and the stent appears to be patent Left main: Is angiographically normal. Bifurcates into LCx and LAD The left circumflex: Is a large caliber vessel nondominant vessel. Its angiographically normal and gives rise into a large joint which appeared to be angiographically normal The left anterior descending artery: Is a large caliber vessel. Its angiographically normal. Gives rises into diagonal branch which seems to be angiographically normal. HEMODYNAMICS: The pulmonary capillary wedge pressure was 10 mmHg PA pressures were as follow systolic 35 and end-diastolic of 19 and mean of 26 mmHg RV pressures were as follow systolic 31 and end-diastolic of 6 mmHg RA pressure was 9 mmHg The LVEDP was 12 mmHg Transpulmonary gradient was 16 mmHg Pulmonary vascular resistance was 2.7 with units Cardiac output was 5.74 L/m CONCLUSION: 1. Normal pulmonary artery pressure 2. normal left and right side filling pressures 3. patent stent in the right coronary artery POSTPROCEDURE MANAGEMENT: Medical treatment and follow-up with the patient
== END ==
LOC: CATHCVL 06:22
PROVIDERS: ATTEND Internal Medicine Interventional Cardiology
DX: I35.1 Nonrheumatic aortic (valve) insufficiency (principal); R06.02 Shortness of breath; R94.39 Abnormal result of other cardiovascular function study; Q23.1 Congenital insufficiency of aortic valve; I34.0 Nonrheumatic mitral (valve) insufficiency; Z20.822 Contact with and (suspected) exposure to COVID-19; I10 Essential (primary) hypertension; E78.5 Hyperlipidemia, unspecified; F17.210 Nicotine dependence, cigarettes, uncomplicated; Z82.49 Family history of ischemic heart disease and other diseases of the circulatory system; Z95.5 Presence of coronary angioplasty implant and graft; E66.3 Overweight; Z79.82 Long term (current) use of aspirin; Z79.891 Long term (current) use of opiate analgesic; Z88.6 Allergy status to analgesic agent; Z88.8 Allergy status to other drugs, medicaments and biological substances; Z79.899 Other long term (current) drug therapy
CPT/HCPCS: 93312; 93320; 93325; 93460; 76937; 87635; C1769 ×3; C1894 ×2; J2001; J3010

== ENCOUNTER → 2021-09-24 | Outpatient (CLI) | payer MEDICARE, OTHER ==
--- NOTE | 2021-09-24 11:29 | CT ---
EXAMINATION TYPE: CT abdomen pelvis wo con DATE OF EXAM: 09/24/2021 COMPARISON: 06/22/2014 HISTORY: Incisional hernia CT DLP: 904.6 mGycm Automated exposure control for dose reduction was used. TECHNIQUE: Helical acquisition of images was performed from the lung bases through the pelvis. FINDINGS: LUNG BASES: Subsegmental changes at both lung bases most typical of atelectasis. Coronary artery calc ification noted. LIVER/GB: Postcholecystectomy changes are noted. PANCREAS: No significant abnormality is seen. SPLEEN: No significant abnormality is seen. ADRENALS: Nodularity of the left adrenal gland measuring 2 cm indeterminate stable measuring 24 Houns field units. KIDNEYS: No significant abnormality is seen. ADENOPATHY: None visualized. OSSEOUS STRUCTURES: Postsurgical changes involving the vertebral column. Multilevel hypertrophic and degenerative changes. BOWEL: Postsurgical change involving the stomach is seen. Bowel gas pattern nonspecific with no obst ruction. OTHER: There is a fat-containing anterior abdominal wall hernia with a neck measuring 2.7 cm and the largest component of the hernia sac measuring 6 cm. Contains peritoneal fat and a tiny amount of flui d. Calcifications in the pelvis likely vascular. IMPRESSION: 1. There is a large fat-containing anterior abdominal wall hernia measuring approximately 6 cm. Amoun t of the hernia measures approximately 2.7 cm. 2. Stable indeterminate left adrenal nodule 3. Postsurgical change involving the stomach with small hiatal hernia.
== END | disposition home or self-care (01) ==
LOC: RADCTMAIN 10:28
PROVIDERS: ATTEND Surgery Plastic and Reconstructive Surgery
DX: K43.2 Incisional hernia without obstruction or gangrene (principal); K44.9 Diaphragmatic hernia without obstruction or gangrene
CPT/HCPCS: 74176

== ENCOUNTER 2022-01-17 19:35 | Inpatient (IN) | payer MEDICARE, OTHER ==
--- NOTE | 2022-01-17 20:38 | ED ---
SOB HPI - General Chief Complaint: Shortness of Breath Stated Complaint: N STEMI Time Seen by Provider: 01/17/22 20:14 Source: patient, EMS, old records reviewed Mode of arrival: EMS Limitations: no limitations - History of Present Illness Initial Comments: This patient is a 61-year-old woman sent here as a transfer from [facility]. The patient states she had gone there earlier today mainly for shortness of breath but states there was also some chest pain earlier. At the other facility, the patient was found to have no what looks like some pulmonary edema, some ECG changes, and on the second troponin that they venus there was mild elevation 0.033. They transferred the patient here to have additional workup and cardiology consultation. The transfer paperwork does include an ECG from today that shows lateral T inversions. A comparison ECG from 12/29/2021 days included that does not have these T inversions. MD Complaint: shortness of breath, chest pain -: hour(s) Severity: severe Quality: dull Consistency: other (Partially relieved) Improves With: oxygen, medication Worsens With: lying flat Known History Of: COPD Associated Symptoms: chest pain, lower extremity pain (Leg edema) Treatments Prior to Arrival: oxygen, diuretics, other (Heparin) - Related Data Home Medications Medication Instructions Recorded Confirmed Albuterol Sulfate [Ventolin HFA] 2 puff INHALATION RT-Q4H PRN 12/01/20 01/17/22 Cholecalciferol (Vitamin D3) 125 mcg PO DAILY 12/01/20 01/17/22 [Vitamin D3 (5000 Iu)] Furosemide [Lasix] 20 mg PO DAILY 12/01/20 01/17/22 Magnesium Oxide 400 mg PO DAILY 12/01/20 01/17/22 Pantoprazole Sodium [Protonix] 40 mg PO DAILY 12/01/20 01/17/22 Potassium Chloride [Klor-Con 10 ER] 10 meq PO DAILY 09/05/21 01/17/22 lisinopriL [Prinivil] 10 mg PO DAILY 09/05/21 01/17/22 ALPRAZolam [Xanax] 1 mg PO BID PRN 01/17/22 01/17/22 Budesonide/Glycopyr/Formoterol 2 puff INHALATION RT-BID 01/17/22 01/17/22 [Breztri Aerosphere Inhaler] Buprenorphine HCl/Naloxone HCl 1 film SL BID 01/17/22 01/17/22 [Buprenorp-Nalox 8-2 mg Sl Film] Cetirizine HCl 10 mg PO DAILY PRN 01/17/22 01/17/22 Escitalopram Oxalate [Lexapro] 10 mg PO DAILY 01/17/22 01/17/22 Nicotine Polacrilex [Nicorette] 4 mg BUCCAL Q2H PRN MDD 20 LOZENGES 01/17/22 01/17/22 Vitamin K 100 Mcg 100 mcg PO DAILY 01/17/22 01/17/22 hydrOXYzine HCL [Atarax] 25 mg PO DAILY PRN 01/17/22 01/17/22 Previous Rx's Medication Instructions Recorded Nitroglycerin Sl Tabs [Nitrostat] 0.4 mg SUBLINGUAL Q5M PRN #20 tab 12/04/20 Allergies Allergy/AdvReac Type Severity Reaction Status Date / Time atorvastatin calcium Allergy Anaphylaxis Verified 01/17/22 22:45 [From Lipitor] citalopram [From Celexa] Allergy Unknown Verified 01/17/22 22:45 NSAIDS (Non-Steroidal Allergy Unknown Verified 01/17/22 22:45 Anti-Inflamma pregabalin [From Lyrica] Allergy Anaphylaxis Verified 01/17/22 22:45 rosuvastatin calcium Allergy Anaphylaxis Verified 01/17/22 22:45 [From Crestor] duloxetine [From Cymbalta] AdvReac Nausea Verified 01/17/22 22:45 Review of Systems ROS Statement: Those systems with pertinent positive or pertinent negative responses have been documented in the HPI. ROS Other: All systems not noted in ROS Statement are negative. Constitutional: Reports: weakness. Denies: fever, chills Respiratory: Reports: dyspnea. Denies: cough, hemoptysis Cardiovascular: Reports: chest pain, orthopnea, edema. Denies: palpitations, syncope Gastrointestinal: Denies: abdominal pain, nausea, vomiting, diarrhea, constipation Genitourinary: Denies: dysuria, hematuria Musculoskeletal: Denies: back pain Skin: Denies: rash Neurological: Denies: headache, weakness Past Medical History Past Medical History: Chest Pain / Angina, COPD, Diabetes Mellitus, GERD/Reflux, Hyperlipidemia, Hypertension, Myocardial Infarction ([place]) Additional Past Medical History / Comment(s): lower back pain, no current problems w/diabetes since weight loss, Last Myocardial Infarction Date:: 12/01/20 History of Any Multi-Drug Resistant Organisms: None Reported Past Surgical History: Back Surgery, Bariatric Surgery, Cholecystectomy, Heart Catheterization With Stent, Hysterectomy, Orthopedic Surgery, Tubal Ligation Additional Past Surgical History / Comment(s): neck and back surgery x 4, carpal tunnel bilateral, rouxen y-gastric bypass, EGD, Past Anesthesia/Blood Transfusion Reactions: No Reported Reaction Date of Last Stent Placement:: 12/01/20 Smoking Status: Current every day smoker - Past Family History Mother Family Medical History: Congestive Heart Failure (CHF) Father Family Medical History: Respiratory Disorder General Exam Limitations: no limitations General appearance: alert, in no apparent distress Head exam: Present: atraumatic, normocephalic Eye exam: Present: normal appearance. Absent: scleral icterus, conjunctival injection ENT exam: Present: normal oropharynx Neck exam: Present: normal inspection Respiratory exam: Present: rales. Absent: respiratory distress, wheezes, rhonchi, stridor, accessory muscle use, decreased breath sounds Cardiovascular Exam: Present: regular rate, normal rhythm, normal heart sounds. Absent: systolic murmur, diastolic murmur, rubs, gallop GI/Abdominal exam: Present: soft. Absent: distended, tenderness, guarding, rebound, rigid, mass Extremities exam: Present: normal capillary refill, pedal edema (Bilateral edema to the mid pretibial). Absent: normal inspection, calf tenderness Back exam: Present: normal inspection Neurological exam: Present: alert Skin exam: Present: warm, dry, intact, normal color. Absent: rash Course Vital Signs 01/17/22 01/17/22 01/18/22 19:58 22:30 00:02 Temperature 97.5 F L Pulse Rate 82 82 78 Respiratory 20 17 18 Rate Blood Pressure 146/79 165/77 138/88 O2 Sat by Pulse 98 97 97 Oximetry - Reevaluation(s) Reevaluation #1: 01/17/22 21:01 Case discussed with cardiology and there treatment recommendations are incorporated. Medical Decision Making - Medical Decision Making Patient is 61-year-old woman transferred here from the outside hospital for acute coronary syndrome and congestive heart failure. She states that her chest discomfort has been partially relieved, there is just a little bit of discomfort. Case is discussed with cardiology. Patient be admitted for further evaluation and treatment. - Lab Data Result diagrams: 01/17/22 20:25 01/17/22 20:25 Lab Results 01/17/22 01/17/22 01/17/22 Range/Units 20:25 20:25 20:25 WBC 13.3 H (3.8-10.6) k/uL RBC 4.48 (3.80-5.40) m/uL Hgb 12.7 (11.4-16.0) gm/dL Hct 40.2 (34.0-46.0) % MCV 89.7 (80.0-100.0) fL MCH 28.2 (25.0-35.0) pg MCHC 31.5 (31.0-37.0) g/dL RDW 15.2 (11.5-15.5) % Plt Count 310 (150-450) k/uL MPV 7.7 Neutrophils % 94 % Lymphocytes % 4 % Monocytes % 1 % Eosinophils % 1 % Basophils % 0 % Neutrophils # 12.5 H (1.3-7.7) k/uL Lymphocytes # 0.5 L (1.0-4.8) k/uL Monocytes # 0.1 (0-1.0) k/uL Eosinophils # 0.1 (0-0.7) k/uL Basophils # 0.0 (0-0.2) k/uL Sodium 136 L (137-145) mmol/L Potassium 4.3 (3.5-5.1) mmol/L Chloride 99 (98-107) mmol/L Carbon Dioxide 27 (22-30) mmol/L Anion Gap 10 mmol/L BUN 15 (7-17) mg/dL Creatinine 0.80 (0.52-1.04) mg/dL Est GFR (CKD-EPI)AfAm >90 (>60 ml/min/1.73 sqM) Est GFR (CKD-EPI)NonAf 81 (>60 ml/min/1.73 sqM) Glucose 176 H (74-99) mg/dL Calcium 9.0 (8.4-10.2) mg/dL Magnesium 1.8 (1.6-2.3) mg/dL Total Bilirubin 0.3 (0.2-1.3) mg/dL AST 21 (14-36) U/L ALT 17 (4-34) U/L Alkaline Phosphatase 97 (38-126) U/L Troponin I 0.020 (0.000-0.034) ng/mL NT-Pro-B Natriuret Pep pg/mL Total Protein 6.0 L (6.3-8.2) g/dL Albumin 3.5 (3.5-5.0) g/dL 01/17/22 Range/Units 20:25 WBC (3.8-10.6) k/uL RBC (3.80-5.40) m/uL Hgb (11.4-16.0) gm/dL Hct (34.0-46.0) % MCV (80.0-100.0) fL MCH (25.0-35.0) pg MCHC (31.0-37.0) g/dL RDW (11.5-15.5) % Plt Count (150-450) k/uL MPV Neutrophils % % Lymphocytes % % Monocytes % % Eosinophils % % Basophils % % Neutrophils # (1.3-7.7) k/uL Lymphocytes # (1.0-4.8) k/uL Monocytes # (0-1.0) k/uL Eosinophils # (0-0.7) k/uL Basophils # (0-0.2) k/uL Sodium (137-145) mmol/L Potassium (3.5-5.1) mmol/L Chloride (98-107) mmol/L Carbon Dioxide (22-30) mmol/L Anion Gap mmol/L BUN (7-17) mg/dL Creatinine (0.52-1.04) mg/dL Est GFR (CKD-EPI)AfAm (>60 ml/min/1.73 sqM) Est GFR (CKD-EPI)NonAf (>60 ml/min/1.73 sqM) Glucose (74-99) mg/dL Calcium (8.4-10.2) mg/dL Magnesium (1.6-2.3) mg/dL Total Bilirubin (0.2-1.3) mg/dL AST (14-36) U/L ALT (4-34) U/L Alkaline Phosphatase (38-126) U/L Troponin I (0.000-0.034) ng/mL NT-Pro-B Natriuret Pep 1850 pg/mL Total Protein (6.3-8.2) g/dL Albumin (3.5-5.0) g/dL - EKG Data -: EKG Interpreted by Me EKG shows normal: sinus rhythm, axis (Normal), intervals (QRS duration 112 ms, consistent with mild intraventricular conduction delay. SD interval 175 ms, QTC 447 ms both normal.), QRS complexes (Intraventricular conduction delay), ST-T waves (Lateral T inversions.) Rate: normal (Rate 81 bpm) Disposition Clinical Impression: Chest pain Disposition: ADMITTED IP TO THIS HOSP Condition: Stable Is patient prescribed a controlled substance at d/c from ED?: No
[2022-01-17] MEDS ORDERED: NITROGLYCERIN SL TABS 0.4 MG TAB SUBLINGUAL PRN (20:49)
[2022-01-17 20:53] LABS: Basophils % (A) 0 %; Eosinophils # (A) 0.1 k/uL (0-0.7); Eosinophils % (A) 1 %; HCT 40.2 % (34.0-46.0); HGB 12.7 gm/dL (11.4-16.0); Lymphocytes # (A) 0.5 k/uL (1.0-4.8); Lymphocytes % (A) 4 %; MCH 28.2 pg (25.0-35.0); MCHC 31.5 g/dL (31.0-37.0); MCV 89.7 fL (80.0-100.0); Mean Platelet Volume 7.7; Monocytes # (A) 0.1 k/uL (0-1.0); Monocytes % (A) 1 %; Neutrophils # (A) 12.5 k/uL (1.3-7.7); Neutrophils % (A) 94 %; Platelet Count 310 k/uL (150-450); RBC 4.48 m/uL (3.80-5.40); RDW 15.2 % (11.5-15.5); WBC 13.3 k/uL (3.8-10.6)
[2022-01-17] MEDS ORDERED: NITROGLYCERIN OINT 1 INCH/GM PACKET TOPICAL STA (20:58)
[2022-01-17] MEDS ORDERED: MORPHINE SULFATE 4 MG/ML SYRINGE IV STA (20:58)
[2022-01-17] MEDS ORDERED: HEPARIN SOD,PORK IN 0.45% NACL 25,000 UNIT in 0.45% NACL 1 250ML.BAG IV SCH (21:00)
[2022-01-17 21:08] LABS: ALT 17 U/L (4-34); AST 21 U/L (14-36); African American GFR (CKD) >90 (>60 ml/min/1.73 sqM); Albumin 3.5 g/dL (3.5-5.0); Alkaline Phosphatase 97 U/L (38-126); Anion Gap 10 mmol/L; Blood Urea Nitrogen 15 mg/dL (7-17); Carbon Dioxide 27 mmol/L (22-30); Chloride 99 mmol/L (98-107); Glucose 176 mg/dL (74-99); Magnesium 1.8 mg/dL (1.6-2.3); Non-African American GFR(CKD) 81 (>60 ml/min/1.73 sqM); Potassium 4.3 mmol/L (3.5-5.1); Sodium 136 mmol/L (137-145); Total Bilirubin 0.3 mg/dL (0.2-1.3)
[2022-01-18] MEDS ORDERED: FUROSEMIDE 10 MG/ML 4 ML VIAL IV STA (02:45)
--- NOTE | 2022-01-18 07:24 | XR ---
EXAMINATION TYPE: XR chest 1V portable DATE OF EXAM: 01/18/2022 7:12 AM COMPARISON: Chest radiographs from 12/02/2020, CT chest 12/03/2020. TECHNIQUE: XR chest 1V portable Frontal view of the chest. CLINICAL INDICATION:Female, 61 years old with history of Shortness of Breath; FINDINGS: Lungs/Pleura: No pneumothorax. Blunting of both costophrenic angles with bibasilar atelectasis. Pulmonary vascularity: Unremarkable. Heart/mediastinum: Cardiomediastinal silhouette is prominent in size. Atherosclerotic calcifications are seen in the aorta. Musculoskeletal: No acute osseous pathology. Partial visualization of cervical fusion hardware. IMPRESSION: Small bilateral pleural effusions with bibasilar atelectasis.
[2022-01-18] MEDS ORDERED: ASPIRIN 325 MG TAB PO SCH (09:00)
[2022-01-18] MEDS ORDERED: ALBUTEROL HFA INHALER INHALATION PRN (09:57)
[2022-01-18] MEDS ORDERED: NITROGLYCERIN SL TABS 0.4 MG TAB SUBLINGUAL PRN (09:57)
[2022-01-18] MEDS ORDERED: DEXTROSE 50% SYRINGE 50 ML IVP PRN ×2 (10:04)
[2022-01-18] MEDS: ACETAMINOPHEN TAB 325 MG TAB PO PRN (10:14)
[2022-01-18] MEDS: ESCITALOPRAM 10 MG TAB PO SCH ×2 (10:15→10:16)
[2022-01-18] MEDS: MAGNESIUM OXIDE 400 MG TAB PO SCH (10:15)
[2022-01-18] MEDS: FUROSEMIDE 20 MG TAB PO SCH (10:15)
[2022-01-18] MEDS: NICOTINE 14MG/24HR PATCH TRANSDERM SCH (10:16)
[2022-01-18] MEDS: lisinopriL 10 MG TAB PO SCH (10:16)
[2022-01-18] MEDS: PANTOPRAZOLE 40 MG TABLET PO SCH (10:16)
[2022-01-18] MEDS: ALPRAZolam 1 MG TAB PO PRN (10:16)
[2022-01-18 11:03] LABS: Partial Thromboplastin Time 30.3 sec (22.0-30.0)
--- NOTE | 2022-01-18 11:24 | P.CRDCN ---
History of Present Illness Consult date: 01/18/22 Reason for Consult (text): Elevated troponins History of present illness: The patient is a 61-year-old female who follows in the office with Dr. White, who presented to the emergency room with increased shortness of breath. She also reported intermittent episodes of chest discomfort. Initial troponin was mildly elevated, therefore she was transferred from [facility]. EKG shows sinus rhythm with T-wave inversion in the lateral leads. These are new findings compared to previous EKGs. DIAGNOSTICS: EKG shows sinus rhythm with T-wave inversions in the lateral leads Chest x-ray shows small bilateral pleural effusions with bibasilar atelectasis Lab data: WBC 13.3, hemoglobin 12.8, hematocrit 40.2, platelets 310, sodium 136, potassium 4.3, BUN 15, creatinine 0.80, AST 21, ALT 17, troponins 0.02, 0.01, 0.01, BNP 1850 Coronary angiogram from August 2021 showed patent stent in the RCA with otherwise normal arteries PAST MEDICAL HISTORY: Coronary artery disease with prior stent to the RCA, cardiomyopathy, hypertensi on, diabetes mellitus REVIEW OF SYSTEMS: No fever or chills. No cough or expectoration. No diaphor esis. Patient denies headache, dizziness, blurred vision, double vision. No nausea, vomiting. No hematochezia. No hematemesis. Denies any black stools or blood in his stools. Denies dysuria or hematuria. No muscle weakness or numbness. Positive for intermittent chest pains. Positive for abdominal discomfort. Positive for shortness of breath PHYSICAL EXAMINATION: This is a 61-year-old female in no apparent distress at the time of my examination. HEENT: Head is atraumatic, normocephalic. Pupils are equal, round. Sclerae anicteric. Conjunctivae are clear. Mucous membranes of the mouth are moist. Neck is supple. There is no jugular venous distention. No carotid bruit is heard. CHEST EXAMINATION: Lungs are coarse to auscultation. No chest wall tenderness is noted on palpation or with deep breathing. Rhonchi throughout. HEART EXAMINATION: Heart regular rate and rhythm. S1, S2 heard. No murmurs, gallops or rub. ABDOMEN: Soft, nontender. Bowel sounds are heard. No organomegaly noted. EXTREMITIES: 2+ peripheral pulses with no evidence of peripheral edema and no calf tenderness noted. NEUROLOGIC EXAMINATION: Patient is awake, alert and oriented x3. FINAL ASSESSMENT AND PLAN: Elevated troponin, flat trend Shortness of breath, secondary to pulmonary etiology History of coronary artery disease, coronary angiogram in August of this year showed no obstructive disease Hypertension PLAN: Resume home medication regimen Discontinue heparin and continue aspirin Follow-up as previously scheduled with primary car starter Dr. White Treatment of bronchitis/pneumonia per primary team I am dictating on behalf of Dr Mata Jimenez's history/physical and assessment/plan. Past Medical History Past Medical History: Chest Pain / Angina, COPD, Diabetes Mellitus, GERD/Reflux, Hyperlipidemia, Hypertension, Myocardial Infarction ([place]), Sleep Apnea/CP AP/BIPAP, Thyroid Disorder Additional Past Medical History / Comment(s): lower back pain, no current problems w/diabetes since weight loss, Last Myocardial Infarction Date:: 12/01/20 History of Any Multi-Drug Resistant Organisms: None Reported Past Surgical History: Back Surgery, Bariatric Surgery, Cholecystectomy, Heart Catheterization With Stent, Hysterectomy, Orthopedic Surgery, Tubal Ligation Additional Past Surgical History / Comment(s): neck and back surgery x 4, carpal tunnel bilateral, rouxen y-gastric bypass, EGD, Past Anesthesia/Blood Transfusion Reactions: No Reported Reaction Date of Last Stent Placement:: 12/01/20 Past Psychological History: Anxiety, Depression Additional Psychological History / Comment(s): OFF OF MEDS AT THIS TIME-UNDER CONTROL Smoking Status: Current every day smoker Past Alcohol Use History: None Reported Additional Past Alcohol Use History / Comment(s): STARTED SMOKING AT AGE 18 SMOKES 3/4 PPD Past Drug Use History: None Reported - Past Family History Mother Family Medical History: Congestive Heart Failure (CHF) Father Family Medical History: Respiratory Disorder Medications and Allergies Home Medications Medication Instructions Recorded Confirmed Type Albuterol Sulfate [Ventolin HFA] 2 puff INHALATION RT-Q4H PRN 12/01/20 01/17/22 History Cholecalciferol (Vitamin D3) 125 mcg PO DAILY 12/01/20 01/17/22 History [Vitamin D3 (5000 Iu)] Furosemide [Lasix] 20 mg PO DAILY 12/01/20 01/17/22 History Magnesium Oxide 400 mg PO DAILY 12/01/20 01/17/22 History Pantoprazole Sodium [Protonix] 40 mg PO DAILY 12/01/20 01/17/22 History Nitroglycerin Sl Tabs [Nitrostat] 0.4 mg SUBLINGUAL Q5M PRN #20 tab 12/04/20 01/17/22 Rx Potassium Chloride [Klor-Con 10 ER] 10 meq PO DAILY 09/05/21 01/17/22 History lisinopriL [Prinivil] 10 mg PO DAILY 09/05/21 01/17/22 History ALPRAZolam [Xanax] 1 mg PO BID PRN 01/17/22 01/17/22 History Budesonide/Glycopyr/Formoterol 2 puff INHALATION RT-BID 01/17/22 01/17/22 History [Breztri Aerosphere Inhaler] Buprenorphine HCl/Naloxone HCl 1 film SL BID 01/17/22 01/17/22 History [Buprenorp-Nalox 8-2 mg Sl Film] Cetirizine HCl 10 mg PO DAILY PRN 01/17/22 01/17/22 History Escitalopram Oxalate [Lexapro] 10 mg PO DAILY 01/17/22 01/17/22 History Nicotine Polacrilex [Nicorette] 4 mg BUCCAL Q2H PRN MDD 20 LOZENGES 01/17/22 01/17/22 History Vitamin K 100 Mcg 100 mcg PO DAILY 01/17/22 01/17/22 History hydrOXYzine HCL [Atarax] 25 mg PO DAILY PRN 01/17/22 01/17/22 History Allergies Allergy/AdvReac Type Severity Reaction Status Date / Time atorvastatin calcium Allergy Anaphylaxis Verified 01/17/22 22:45 [From Lipitor] citalopram [From Celexa] Allergy Unknown Verified 01/17/22 22:45 NSAIDS (Non-Steroidal Allergy Unknown Verified 01/17/22 22:45 Anti-Inflamma pregabalin [From Lyrica] Allergy Anaphylaxis Verified 01/17/22 22:45 rosuvastatin calcium Allergy Anaphylaxis Verified 01/17/22 22:45 [From Crestor] duloxetine [From Cymbalta] AdvReac Nausea Verified 01/17/22 22:45 Physical Exam Vitals: Vital Signs Temp Pulse Pulse Resp BP BP Pulse Ox 01/18/22 07:57 97.1 F L 94 16 143/72 96 01/18/22 04:00 98 F 69 20 168/90 97 01/18/22 02:00 98.1 F 94 19 168/78 94 L 01/18/22 00:02 78 18 138/88 97 01/17/22 22:30 82 17 165/77 97 01/17/22 19:58 97.5 F L 82 20 146/79 98 Intake and Output 01/17/22 01/18/22 01/18/22 22:59 06:59 14:59 Output Total 400 Balance -400 Output: Urine 400 Other: Voiding Method Toilet # Voids 2 Weight 81.647 kg 81.647 kg Results 01/17/22 20:25 01/17/22 20:25 Cardiac Enzymes 01/17/22 01/17/22 01/18/22 Range/Units 20:25 20:25 00:37 AST 21 (14-36) U/L Troponin I 0.020 0.014 (0.000-0.034) ng/mL 01/18/22 Range/Units 04:02 AST (14-36) U/L Troponin I 0.013 (0.000-0.034) ng/mL Coagulation 01/18/22 Range/Units 10:04 APTT 30.3 H (22.0-30.0) sec CBC 01/17/22 Range/Units 20:25 WBC 13.3 H (3.8-10.6) k/uL RBC 4.48 (3.80-5.40) m/uL Hgb 12.7 (11.4-16.0) gm/dL Hct 40.2 (34.0-46.0) % Plt Count 310 (150-450) k/uL Comprehensive Metabolic Panel 01/17/22 Range/Units 20:25 Sodium 136 L (137-145) mmol/L Potassium 4.3 (3.5-5.1) mmol/L Chloride 99 (98-107) mmol/L Carbon Dioxide 27 (22-30) mmol/L BUN 15 (7-17) mg/dL Creatinine 0.80 (0.52-1.04) mg/dL Glucose 176 H (74-99) mg/dL Calcium 9.0 (8.4-10.2) mg/dL AST 21 (14-36) U/L ALT 17 (4-34) U/L Alkaline Phosphatase 97 (38-126) U/L Total Protein 6.0 L (6.3-8.2) g/dL Albumin 3.5 (3.5-5.0) g/dL Current Medications Generic Name Dose Route Start Last Admin Trade Name Freq PRN Reason Stop Dose Admin Acetaminophen 650 mg 01/18/22 10:02 01/18/22 10:14 Acetaminophen Tab 325 Mg Tab PO 650 mg Q6HR PRN Administration Fever and/ or Pain Albuterol Sulfate 2 puff 01/18/22 09:57 Albuterol Hfa Inhaler INHALATION RT-Q4H PRN Shortness Of Breath Alprazolam 1 mg 01/18/22 09:57 01/18/22 10:16 Alprazolam 1 Mg Tab PO 1 mg BID PRN Administration Anxiety Aspirin 325 mg 01/18/22 09:00 01/18/22 09:26 Aspirin 325 Mg Tab PO 325 mg DAILY [facility]ANCI Administration Budesonide/Formoterol Fumarate 2 puff 01/18/22 20:00 Symbicort 160-4.5 Mcg Inhaler INHALATION RT-BID NANCI Dextrose/Water 25 ml 01/18/22 10:04 Dextrose 50% Syringe 50 Ml IVP PER PROTOCOL PRN Hypoglycemia Protocol Dextrose/Water 50 ml 01/18/22 10:04 Dextrose 50% Syringe 50 Ml IVP PER PROTOCOL PRN Hypoglycemia Protocol Escitalopram Oxalate 10 mg 01/18/22 10:00 01/18/22 10:16 Escitalopram 10 Mg Tab PO 10 mg DAILY NANCI Administration Furosemide 20 mg 01/18/22 10:00 01/18/22 10:15 Furosemide 20 Mg Tab PO 20 mg DAILY NANCI Administration Heparin Sodium/Sodium Chloride 250 mls @ 9.798 mls/hr 01/17/22 21:00 01/17/22 22:31 25,000 unit/ Sodium Chloride IV 12 units/kg/hr .Q24H [facility] 9.798 mls/hr Administration Protocol 12 UNITS/KG/HR Insulin Aspart 0 unit 01/18/22 12:30 Insulin Aspart (Novolog) 100 Unit/Ml Vial SQ ACHS [facility] Protocol Ipratropium [place] 0.5 mg 01/18/22 20:00 Ipratropium 0.5 Mg/2.5 Ml Nebu INHALATION RT-QID [facility] Lisinopril 10 mg 01/18/22 10:00 01/18/22 10:16 Lisinopril 10 Mg Tab PO 10 mg DAILY NANCI Administration Magnesium Oxide 400 mg 01/18/22 10:00 01/18/22 10:15 Magnesium Oxide 400 Mg Tab PO 400 mg DAILY [facility]ANCI Administration Nicotine 1 patch 01/18/22 10:15 01/18/22 10:16 Nicotine 14mg/24hr Patch TRANSDERM 1 patch DAILY [facility] Administration Nitroglycerin 0.4 mg 01/18/22 09:57 Nitroglycerin Sl Tabs 0.4 Mg Tab SUBLINGUAL Q5M PRN Chest Pain Pantoprazole Sodium 40 mg 01/18/22 09:58 01/18/22 10:16 Pantoprazole 40 Mg Tablet PO 40 mg DAILY@0730 NANCI Administration Intake and Output 01/17/22 01/18/22 01/18/22 22:59 06:59 14:59 Output Total 400 Balance -400 Output: Urine 400 Other: Voiding Method Toilet # Voids 2 Weight 81.647 kg 81.647 kg 01/17/22 20:25 01/17/22 20:25
[2022-01-18 12:11] LABS: Glucose,Whole Blood 202 mg/dL (70-110)
[2022-01-18] MEDS: IPRATROPIUM-ALBUTEROL 3 ML NEB INHALATION SCH ×3 (12:44→19:14)
--- NOTE | 2022-01-18 13:06 | P.HPIM ---
History of Present Illness 61-year-old the came in with compensative shortness of breath and episodes of chest discomfort. Patient had mildly elevated troponins of 03 because of which patient was sent in from [facility] patient has a BNP of 1850. P atient chest x-ray showed some bilateral pleural effusions and mild heart failure patient had a normal ejection fraction the past. Patient is comparing of cough with green sputum production. Patient chest pain is pleuritic in nature d-dimer is normal 0.44. Patient does smoke daily a pack a day. REVIEW OF SYSTEMS: CONSTITUTIONAL: No fever, no malaise, no fatigue. HEENT: No recent visual problems or hearing problems. Denied any sore throat. CARDIOVASCULAR: No orthopnea, PND, no palpitations, no syncope. PULMONARY: no hemoptysis. GASTROINTESTINAL: No diarrhea, no nausea, no vomiting, no abdominal pain. NEUROLOGICAL: No headaches, no weakness, no numbness. HEMATOLOGICAL: Denies any bleeding or petechiae. GENITOURINARY: Denies any burning micturition, frequency, or urgency. MUSCULOSKELETAL/RHEUMATOLOGICAL: Denies any joint pain, swelling, or any muscle pain. ENDOCRINE: Denies any polyuria or polydipsia. The rest of the 14-point review of systems is negative. PHYSICAL EXAMINATION: GENERAL: The patient is alert and oriented x3, not in any acute distress. Well developed, well nourished. HEENT: Pupils are round and equally reacting to light. EOMI. No scleral icterus. No conjunctival pallor. Normocephalic, atraumatic. No pharyngeal erythema. No thyromegaly. CARDIOVASCULAR: S1 and S2 present. No murmurs, rubs, or gallops. PULMONARY: Expiratory wheezing on exam bilateral rhonchi ABDOMEN: Soft, nontender, nondistended, normoactive bowel sounds. No palpable organomegaly. MUSCULOSKELETAL: No joint swelling or deformity. EXTREMITIES: No cyanosis, clubbing, or pedal edema. NEUROLOGICAL: Gross neurological examination did not reveal any focal deficits. SKIN: No rashes. Assessment and plan -Chest pain shortness of breath: Secondary to bacterial bronchitis for which patient was started on azithromycin patient shortness of breath is secondary to COPD exacerbation counseling regarding smoking cessation was provided patient will be started on inhalational treatments and systemic steroids -Leukocytosis secondary to bronchitis COPD with acute exacerbation x-ray- -hyperlipidemia -hypertension -Sleep apnea #Hypothyroidism For above-mentioned chronic medical problems patient was resumed on appropriate home medications smoking cessation counseling was provided DVT prophylaxis: Lovenox Past Medical History Past Medical History: Chest Pain / Angina, COPD, Diabetes Mellitus, GERD/Reflux, Hyperlipidemia, Hypertension, Myocardial Infarction ([place]), Sleep Apnea/CPAP/BIPAP, Thyroid Disorder Additional Past Medical History / Comment(s): lower back pain, no current problems w/diabetes since weight loss, Last Myocardial Infarction Date:: 12/01/20 History of Any Multi-Drug Resistant Organisms: None Reported Past Surgical History: Back Surgery, Bariatric Surgery, Cholecystectomy, Heart Catheterization With Stent, Hysterectomy, Orthopedic Surgery, Tubal Ligation Additional Past Surgical History / Comment(s): neck and back surgery x 4, carpal tunnel bilateral, rouxen y-gastric bypass, EGD, Past Anesthesia/Blood Transfusion Reactions: No Reported Reaction Date of Last Stent Placement:: 12/01/20 Past Psychological History: Anxiety, Depression Additional Psychological History / Comment(s): OFF OF MEDS AT THIS TIME-UNDER CONTROL Smoking Status: Current every day smoker Past Alcohol Use History: None Reported Additional Past Alcohol Use History / Comment(s): STARTED SMOKING AT AGE 18 SMOKES 3/4 PPD Past Drug Use History: None Reported - Past Family History Mother Family Medical History: Congestive Heart Failure (CHF) Father Family Medical History: Respiratory Disorder Medications and Allergies Home Medications Medication Instructions Recorded Confirmed Type Albuterol Sulfate [Ventolin HFA] 2 puff INHALATION RT-Q4H PRN 12/01/20 01/17/22 History Cholecalciferol (Vitamin D3) 125 mcg PO DAILY 12/01/20 01/17/22 History [Vitamin D3 (5000 Iu)] Furosemide [Lasix] 20 mg PO DAILY 12/01/20 01/17/22 History Magnesium Oxide 400 mg PO DAILY 12/01/20 01/17/22 History Pantoprazole Sodium [Protonix] 40 mg PO DAILY 12/01/20 01/17/22 History Nitroglycerin Sl Tabs [Nitrostat] 0.4 mg SUBLINGUAL Q5M PRN #20 tab 12/04/20 01/17/22 Rx Potassium Chloride [Klor-Con 10 ER] 10 meq PO DAILY 09/05/21 01/17/22 History lisinopriL [Prinivil] 10 mg PO DAILY 09/05/21 01/17/22 History ALPRAZolam [Xanax] 1 mg PO BID PRN 01/17/22 01/17/22 History Budesonide/Glycopyr/Formoterol 2 puff INHALATION RT-BID 01/17/22 01/17/22 History [Breztri Aerosphere Inhaler] Buprenorphine HCl/Naloxone HCl 1 film SL BID 01/17/22 01/17/22 History [Buprenorp-Nalox 8-2 mg Sl Film] Cetirizine HCl 10 mg PO DAILY PRN 01/17/22 01/17/22 History Escitalopram Oxalate [Lexapro] 10 mg PO DAILY 01/17/22 01/17/22 History Nicotine Polacrilex [Nicorette] 4 mg BUCCAL Q2H PRN MDD 20 LOZENGES 01/17/22 01/17/22 History Vitamin K 100 Mcg 100 mcg PO DAILY 01/17/22 01/17/22 History hydrOXYzine HCL [Atarax] 25 mg PO DAILY PRN 01/17/22 01/17/22 History Allergies Allergy/AdvReac Type Severity Reaction Status Date / Time atorvastatin calcium Allergy Anaphylaxis Verified 01/17/22 22:45 [From Lipitor] citalopram [From Celexa] Allergy Unknown Verified 01/17/22 22:45 NSAIDS (Non-Steroidal Allergy Unknown Verified 01/17/22 22:45 Anti-Inflamma pregabalin [From Lyrica] Allergy Anaphylaxis Verified 01/17/22 22:45 rosuvastatin calcium Allergy Anaphylaxis Verified 01/17/22 22:45 [From Crestor] duloxetine [From Cymbalta] AdvReac Nausea Verified 01/17/22 22:45 Physical Exam Vitals: Vital Signs Temp Pulse Pulse Resp BP BP Pulse Ox 01/18/22 12:56 84 01/18/22 12:44 84 01/18/22 08:00 20 01/18/22 07:57 97.1 F L 94 16 143/72 96 01/18/22 04:00 98 F 69 20 168/90 97 01/18/22 02:00 98.1 F 94 19 168/78 94 L 01/18/22 00:02 78 18 138/88 97 01/17/22 22:30 82 17 165/77 97 01/17/22 19:58 97.5 F L 82 20 146/79 98 Intake and Output 01/17/22 01/18/22 01/18/22 22:59 06:59 14:59 Intake Total 126.394 Output Total 400 Balance -400 126.394 Intake: Intake, IV Titration 126.394 Amount Heparin Sod,Pork in 0.45% 126.394 NaCl 25,000 unit In 0.45 % NaCl 1 250ml.bag @ 12 UNITS/KG/HR 9.798 mls/hr IV .Q24H [facility] Rx#: [id number] Output: Urine 400 Other: Voiding Method Toilet Toilet # Voids 2 Weight 81.647 kg 81.647 kg Results CBC & Chem 7: 01/17/22 20:25 01/17/22 20:25 Labs: Abnormal Lab Results - Last 24 Hours (Table) 01/17/22 01/17/22 01/18/22 Range/Units 20:25 20:25 10:04 WBC 13.3 H (3.8-10.6) k/uL Neutrophils # 12.5 H (1.3-7.7) k/uL Lymphocytes # 0.5 L (1.0-4.8) k/uL APTT 30.3 H (22.0-30.0) sec Sodium 136 L (137-145) mmol/L Glucose 176 H (74-99) mg/dL POC Glucose (mg/dL) (70-110) mg/dL Total Protein 6.0 L (6.3-8.2) g/dL 01/18/22 Range/Units 12:09 WBC (3.8-10.6) k/uL Neutrophils # (1.3-7.7) k/uL Lymphocytes # (1.0-4.8) k/uL APTT (22.0-30.0) sec Sodium (137-145) mmol/L Glucose (74-99) mg/dL POC Glucose (mg/dL) 202 H (70-110) mg/dL Total Protein (6.3-8.2) g/dL Thrombosis Risk Factor Assmnt - Choose All That Apply Any of the Below Risk Factors Present?: Yes Each Factor Represents 1 point: Age 41-60 years, Swollen legs (current) Thrombosis Risk Factor Assessment Total Risk Factor Score: 2 Thrombosis Risk Factor Assessment Level: Low Risk
[2022-01-18] MEDS: INSULIN ASPART (NovoLOG) 100 UNIT/ML VIAL SQ SCH ×3 (13:12→21:26)
[2022-01-18] MEDS: AZITHROMYCIN 500 MG TAB PO SCH (13:13)
[2022-01-18] MEDS: methylPREDNISolone SOD SUCCI 40 MG/ML 1 ML VIAL IV SCH ×2 (13:13→21:26)
[2022-01-18] MEDS: METOPROLOL TARTRATE 25 MG TAB PO SCH ×2 (14:58→21:27)
[2022-01-18 16:48] LABS: Glucose,Whole Blood 140 mg/dL (70-110)
[2022-01-18 17:14] LABS: Chol/HDL Ratio 1.92 Ratio; LDL Cholesterol,Calculated 26.5 mg/dL (0.0-131.0); VLDL Calculation 16.94 mg/dL (5.00-40.00)
[2022-01-18] MEDS: SYMBICORT 160-4.5 MCG INHALER INHALATION SCH (19:14)
[2022-01-18] MEDS ORDERED: IPRATROPIUM 0.5 MG/2.5 ML NEBU INHALATION SCH (20:00)
[2022-01-18 20:25] LABS: Glucose,Whole Blood 181 mg/dL (70-110)
[2022-01-19] MEDS: IPRATROPIUM-ALBUTEROL 3 ML NEB INHALATION SCH ×6 (00:12→19:21)
[2022-01-19] MEDS: INSULIN ASPART (NovoLOG) 100 UNIT/ML VIAL SQ SCH ×4 (06:44→22:05)
[2022-01-19 06:47] LABS: Glucose,Whole Blood 144 mg/dL (70-110)
[2022-01-19] MEDS: PANTOPRAZOLE 40 MG TABLET PO SCH (06:48)
[2022-01-19] MEDS: SYMBICORT 160-4.5 MCG INHALER INHALATION SCH ×2 (07:32→19:21)
[2022-01-19] MEDS: lisinopriL 10 MG TAB PO SCH (08:37)
[2022-01-19] MEDS: methylPREDNISolone SOD SUCCI 40 MG/ML 1 ML VIAL IV SCH ×2 (08:37→21:25)
[2022-01-19] MEDS: ASPIRIN 81 MG PO SCH (08:37)
[2022-01-19] MEDS: ENOXAPARIN 40 MG/0.4 ML SYRINGE SQ SCH (08:37)
[2022-01-19] MEDS: METOPROLOL TARTRATE 25 MG TAB PO SCH ×2 (08:37→21:25)
[2022-01-19] MEDS: AZITHROMYCIN 500 MG TAB PO SCH (08:37)
[2022-01-19] MEDS: FUROSEMIDE 20 MG TAB PO SCH (08:37)
[2022-01-19] MEDS: MAGNESIUM OXIDE 400 MG TAB PO SCH (08:37)
[2022-01-19] MEDS: ESCITALOPRAM 10 MG TAB PO SCH (08:37)
[2022-01-19] MEDS: NICOTINE 14MG/24HR PATCH TRANSDERM SCH (08:48)
--- NOTE | 2022-01-19 10:22 | P.PN ---
Subjective Progress Note Date: 01/19/22 The patient is a 61-year-old female who follows in the office with Dr. Estes. She presented with worsening shortness of breath. She states she continues to have shortness of breath with exertion. No chest discomfort overnight. No heart racing or fluttering. GENERAL: Well-appearing, well-nourished and in no acute distress. NECK: Supple without JVD or thyromegaly. LUNGS: Breath sounds coarse to auscultation bilaterally. Respiration equal and unlabored. Rhonchi throughout. HEART: Regular rate and rhythm without murmurs, rubs or gallops. S1 and S2 heard. EXTREMITIES: Normal range of motion, no edema. No clubbing or cyanosis. Peripheral pulses intact and strong. VITALS: Blood pressure 120/60, pulse 90s, respiratory rate 18, SpO2 90% on 4 L nasal cannula TELEMETRY: Sinus rhythm/ sinus tachycardia IMPRESSION: Shortness of breath, secondary to pulmonary etiology New EKG abnormalities, flat troponin History of coronary artery disease, coronary angiogram in August of this year showed no obstructive disease Hypertension PLAN: Aggressive pulmonary hygiene and treatment of bronchitis/pneumonia Follow-up with primary janitorial tech Dr. Estes No further recommendations from the cardiac standpoint I am dictating on behalf of Dr Mata Jimenez's history/physical and assessment/plan. Objective - Vital Signs Vital signs: Vital Signs Temp 97.9 F 01/19/22 08:39 Pulse 90 01/19/22 08:39 Resp 18 01/19/22 08:39 BP 120/60 01/19/22 08:39 Pulse Ox 94 L 01/19/22 08:41 FiO2 Intake & Output 01/18/22 01/19/22 01/19/22 18:59 06:59 18:59 Intake Total 362.394 118 Output Total 500 500 Balance -137.606 -500 118 Weight 79.288 kg Intake: Intake, IV Titration 126.394 Amount Heparin Sod,Pork in 0.45% 126.394 NaCl 25,000 unit In 0.45 % NaCl 1 250ml.bag @ 12 UNITS/KG/HR 9.798 mls/hr IV .Q24H [facility] Rx#: [id number] Oral 236 118 Output: Urine 500 500 Other: Voiding Method Toilet Toilet # Voids 3 - Labs CBC & Chem 7: 01/17/22 20:25 01/17/22 20:25 Labs: Abnormal Lab Results - Last 24 Hours (Table) 01/18/22 01/18/22 01/18/22 Range/Units 09:58 10:04 12:09 APTT 30.3 H (22.0-30.0) sec POC Glucose (mg/dL) 202 H (70-110) mg/dL Hemoglobin A1c 8.1 H (0.0-6.0) % 01/18/22 01/18/22 01/19/22 Range/Units 16:47 20:24 06:44 APTT (22.0-30.0) sec POC Glucose (mg/dL) 140 H 181 H 144 H (70-110) mg/dL Hemoglobin A1c (0.0-6.0) % Microbiology - Last 24 Hours (Table) 01/18/22 10:44 Sputum Culture - Preliminary Sputum
[2022-01-19 11:33] LABS: Glucose,Whole Blood 233 mg/dL (70-110)
[2022-01-19] MEDS: ACETAMINOPHEN TAB 325 MG TAB PO PRN ×2 (12:14→21:24)
--- NOTE | 2022-01-19 13:44 | P.PN ---
Subjective 61-year-old the came in with compensative shortness of breath and episodes of chest discomfort. Patient had mildly elevated troponins of 03 because of which patient was sent in from [facility] patient has a BNP of 1850. Patient chest x-ray showed some bilateral pleural effusions and mild heart failure patient had a normal ejection fraction the past. Patient is comparing of cough with green sputum production. Patient chest pain is pleuritic in nature d-dimer is normal 0.44. Patient does smoke daily a pack a day. 01/19/2022 Patient's wheezing is better patient is being treated for COPD exacerbation patient is on 4 L of oxygen. Cardiology evaluated the patient troponin elevation is not high enough for acute type 1 myocardial infarction Constitutional: Denied any fatigue denied any fever. Cardio vascular: denied any chest pain, palpitations Gastrointestinal denied any nausea vomiting Pulmonary: Still short of breath Neurologic denied any new focal deficits All inpatient medications were reviewed and appropriate changes in these medications as dictated in the interval history and assessment and plan. PHYSICAL EXAMINATION: GENERAL: The patient is alert and oriented x3, not in any acute distress. Well developed, well nourished. HEENT: Pupils are round and equally reacting to light. EOMI. No scleral icterus. No conjunctival pallor. Normocephalic, atraumatic. No pharyngeal erythema. No thyromegaly. CARDIOVASCULAR: S1 and S2 present. No murmurs, rubs, or gallops. PULMONARY: Expiratory wheezing on exam bilateral rhonchi ABDOMEN: Soft, nontender, nondistended, normoactive bowel sounds. No palpable organomegaly. MUSCULOSKELETAL: No joint swelling or deformity. EXTREMITIES: No cyanosis, clubbing, or pedal edema. NEUROLOGICAL: Gross neurological examination did not reveal any focal deficits. SKIN: No rashes. Assessment and plan -Chest pain shortness of breath: Secondary to bacterial bronchitis for which patient is on azithromycin patient shortness of breath is secondary to COPD exacerbation counseling regarding smoking cessation was provided patient will be started on inhalational treatments and systemic steroids -Rule out acute coronary syndromes: Cardiology evaluated the patient -Leukocytosis secondary to bronchitis COPD with acute exacerbation x-ray- -hyperlipidemia -hypertension -Sleep apnea #Hypothyroidism For above-mentioned chronic medical problems patient was resumed on appropriate home medications smoking cessation counseling was provided DVT prophylaxis: Lovenox Objective - Vital Signs Vital signs: Vital Signs Temp 98.2 F 01/19/22 11:43 Pulse 80 01/19/22 11:43 Resp 17 01/19/22 11:44 BP 133/62 01/19/22 11:43 Pulse Ox 93 L 01/19/22 11:44 FiO2 Intake & Output 01/18/22 01/19/22 01/19/22 18:59 06:59 18:59 Intake Total 362.394 236 Output Total 500 500 Balance -137.606 -500 236 Weight 79.288 kg Intake: Intake, IV Titration 126.394 Amount Heparin Sod,Pork in 0.45% 126.394 NaCl 25,000 unit In 0.45 % NaCl 1 250ml.bag @ 12 UNITS/KG/HR 9.798 mls/hr IV .Q24H [facility] Rx#: [id number] Oral 236 236 Output: Urine 500 500 Other: Voiding Method Toilet Toilet # Voids 3 - Labs CBC & Chem 7: 01/17/22 20:25 01/17/22 20:25 Labs: Abnormal Lab Results - Last 24 Hours (Table) 01/18/22 01/18/22 01/18/22 Range/Units 09:58 16:47 20:24 POC Glucose (mg/dL) 140 H 181 H (70-110) mg/dL Hemoglobin A1c 8.1 H (0.0-6.0) % 01/19/22 01/19/22 Range/Units 06:44 11:30 POC Glucose (mg/dL) 144 H 233 H (70-110) mg/dL Hemoglobin A1c (0.0-6.0) % Microbiology - Last 24 Hours (Table) 01/18/22 10:44 Sputum Culture - Preliminary Sputum
[2022-01-19 16:52] LABS: Glucose,Whole Blood 180 mg/dL (70-110)
[2022-01-19] MEDS: ALPRAZolam 1 MG TAB PO PRN (17:45)
[2022-01-19 21:22] LABS: Glucose,Whole Blood 176 mg/dL (70-110)
[2022-01-20] MEDS: IPRATROPIUM-ALBUTEROL 3 ML NEB INHALATION SCH ×6 (00:40→19:31)
[2022-01-20 03:41] LABS: Glucose,Whole Blood 182 mg/dL (70-110)
[2022-01-20 06:27] LABS: Glucose,Whole Blood 180 mg/dL (70-110)
[2022-01-20] MEDS: INSULIN ASPART (NovoLOG) 100 UNIT/ML VIAL SQ SCH ×4 (06:35→21:25)
[2022-01-20] MEDS: PANTOPRAZOLE 40 MG TABLET PO SCH (06:38)
[2022-01-20 08:01] LABS: HCT 37.3 % (34.0-46.0); HGB 11.9 gm/dL (11.4-16.0); MCH 28.6 pg (25.0-35.0); MCHC 31.9 g/dL (31.0-37.0); MCV 89.5 fL (80.0-100.0); Mean Platelet Volume 7.7; Platelet Count 298 k/uL (150-450); RBC 4.16 m/uL (3.80-5.40); RDW 15.1 % (11.5-15.5); WBC 12.6 k/uL (3.8-10.6)
[2022-01-20 08:14] LABS: African American GFR (CKD) >90 (>60 ml/min/1.73 sqM); Anion Gap 6 mmol/L; Blood Urea Nitrogen 18 mg/dL (7-17); Calcium 8.9 mg/dL (8.4-10.2); Carbon Dioxide 31 mmol/L (22-30); Chloride 94 mmol/L (98-107); Glucose 155 mg/dL (74-99); Non-African American GFR(CKD) 85 (>60 ml/min/1.73 sqM); Potassium 4.5 mmol/L (3.5-5.1); Sodium 131 mmol/L (137-145)
[2022-01-20] MEDS: SYMBICORT 160-4.5 MCG INHALER INHALATION SCH ×2 (08:21→19:31)
[2022-01-20] MEDS: lisinopriL 10 MG TAB PO SCH (08:40)
[2022-01-20] MEDS: ASPIRIN 81 MG PO SCH ×2 (08:40→08:44)
[2022-01-20] MEDS: MAGNESIUM OXIDE 400 MG TAB PO SCH (08:40)
[2022-01-20] MEDS: AZITHROMYCIN 500 MG TAB PO SCH (08:40)
[2022-01-20] MEDS: FUROSEMIDE 20 MG TAB PO SCH (08:40)
[2022-01-20] MEDS: methylPREDNISolone SOD SUCCI 40 MG/ML 1 ML VIAL IV SCH ×2 (08:41→21:24)
[2022-01-20] MEDS: ENOXAPARIN 40 MG/0.4 ML SYRINGE SQ SCH (08:41)
[2022-01-20] MEDS: ESCITALOPRAM 10 MG TAB PO SCH (08:41)
[2022-01-20] MEDS: NICOTINE 14MG/24HR PATCH TRANSDERM SCH ×2 (08:41→10:35)
[2022-01-20] MEDS: METOPROLOL TARTRATE 25 MG TAB PO SCH ×2 (08:41→21:25)
[2022-01-20] MEDS: ALPRAZolam 1 MG TAB PO PRN ×2 (08:49→21:25)
[2022-01-20 11:56] LABS: Glucose,Whole Blood 191 mg/dL (70-110)
[2022-01-20] MEDS: FUROSEMIDE 10 MG/ML 2 ML VIAL IV SCH ×2 (13:07→21:24)
[2022-01-20 16:58] LABS: Glucose,Whole Blood 158 mg/dL (70-110)
[2022-01-20] MEDS: ACETAMINOPHEN TAB 325 MG TAB PO PRN (17:07)
[2022-01-20 21:14] LABS: Glucose,Whole Blood 227 mg/dL (70-110)
[2022-01-21] MEDS: IPRATROPIUM-ALBUTEROL 3 ML NEB INHALATION SCH ×7 (00:52→23:52)
[2022-01-21 06:03] LABS: Glucose,Whole Blood 171 mg/dL (70-110)
[2022-01-21] MEDS: PANTOPRAZOLE 40 MG TABLET PO SCH (06:22)
[2022-01-21] MEDS: INSULIN ASPART (NovoLOG) 100 UNIT/ML VIAL SQ SCH ×4 (06:22→21:48)
[2022-01-21] MEDS: SYMBICORT 160-4.5 MCG INHALER INHALATION SCH ×2 (07:15→20:01)
[2022-01-21] MEDS: lisinopriL 10 MG TAB PO SCH (08:33)
[2022-01-21] MEDS: methylPREDNISolone SOD SUCCI 40 MG/ML 1 ML VIAL IV SCH ×2 (08:33→20:29)
[2022-01-21] MEDS: ASPIRIN 81 MG PO SCH (08:33)
[2022-01-21] MEDS: METOPROLOL TARTRATE 25 MG TAB PO SCH ×2 (08:33→20:30)
[2022-01-21] MEDS: FUROSEMIDE 10 MG/ML 2 ML VIAL IV SCH ×2 (08:33→20:29)
[2022-01-21] MEDS: MAGNESIUM OXIDE 400 MG TAB PO SCH (08:33)
[2022-01-21] MEDS: ESCITALOPRAM 10 MG TAB PO SCH (08:33)
[2022-01-21] MEDS: ENOXAPARIN 40 MG/0.4 ML SYRINGE SQ SCH (08:34)
[2022-01-21] MEDS: ALPRAZolam 1 MG TAB PO PRN ×2 (08:34→20:30)
[2022-01-21] MEDS: NICOTINE 14MG/24HR PATCH TRANSDERM SCH (08:40)
[2022-01-21 09:30] LABS: Basophils % (A) 0 %; Eosinophils % (A) 0 %; HCT 39.9 % (34.0-46.0); HGB 12.7 gm/dL (11.4-16.0); Lymphocytes # (A) 1.3 k/uL (1.0-4.8); Lymphocytes % (A) 11 %; MCH 28.6 pg (25.0-35.0); MCHC 31.8 g/dL (31.0-37.0); MCV 89.9 fL (80.0-100.0); Mean Platelet Volume 7.6; Monocytes # (A) 0.6 k/uL (0-1.0); Monocytes % (A) 5 %; Neutrophils # (A) 9.7 k/uL (1.3-7.7); Neutrophils % (A) 82 %; Platelet Count 296 k/uL (150-450); RBC 4.44 m/uL (3.80-5.40); RDW 14.9 % (11.5-15.5); WBC 11.8 k/uL (3.8-10.6)
[2022-01-21 09:40] LABS: Calcium 9.2 mg/dL (8.4-10.2); Potassium 4.1 mmol/L (3.5-5.1)
--- NOTE | 2022-01-21 10:31 | P.PN ---
Subjective Progress Note Date: 01/20/22 61-year-old the came in with compensative shortness of breath and episodes of chest discomfort. Patient had mildly elevated troponins of 03 because of which patient was sent in from [facility] patient has a BNP of 1850. Patient chest x-ray showed some bilateral pleural effusions and mild heart failure patient had a normal ejection fraction the past. Patient is comparing of cough with green sputum production. Patient chest pain is pleuritic in nature d-dimer is normal 0.44. Patient does smoke daily a pack a day. 01/19/2022 Patient's wheezing is better patient is being treated for COPD exacerbation patient is on 4 L of oxygen. Cardiology evaluated the patient troponin elevation is not high enough for acute type 1 myocardial infarction 01/20/2022 Patient is seen and evaluated and follow-up currently maintained on medications for COPD exacerbation and continues on 3 L of oxygen although oxygen saturation is 95%. Recommend to wean FiO2 as tolerated. Patient also being continued on low-dose 20 mg IV Lasix and will transition to oral Lasix on discharge. Patient is continued on antibiotics along with IV steroids along with breathing inhalational treatments. Cardiology is following and recommending continuing current medications and outpatient follow-up. Patient with incentive spirometer at the bedside and recommend continue using at least 10 times every hour while awake. Sputum cultures showing Streptococcus pneumoniae and will transition to oral cefdinir on discharge. Patient currently afebrile denies worsening shortness of breath or chest pain. Patient denies nausea or vomiting and is tolerating diet. Recommend continue monitoring blood sugars and continue sliding scale for now. Constitutional: Denied any fatigue denied any fever. Cardio vascular: denied any chest pain, palpitations Gastrointestinal denied any nausea vomiting Pulmonary: Still short of breath Neurologic denied any new focal deficits All inpatient medications were reviewed and appropriate changes in these medications as dictated in the interval history and assessment and plan. PHYSICAL EXAMINATION: GENERAL: The patient is alert and oriented x3, not in any acute distress. Well developed, well nourished. HEENT: Pupils are round and equally reacting to light. EOMI. No scleral icterus. No conjunctival pallor. Normocephalic, atraumatic. No pharyngeal erythema. No thyromegaly. CARDIOVASCULAR: S1 and S2 present. No murmurs, rubs, or gallops. PULMONARY: Expiratory wheezing on exam bilateral rhonchi, some improvement in wheezing ABDOMEN: Soft, nontender, nondistended, normoactive bowel sounds. No palpable organomegaly. MUSCULOSKELETAL: No joint swelling or deformity. EXTREMITIES: No cyanosis, clubbing, or pedal edema. NEUROLOGICAL: Gross neurological examination did not reveal any focal deficits. SKIN: No rashes. Assessment and plan -Chest pain shortness of breath: Secondary to bacterial bronchitis for which patient is on azithromycin patient shortness of breath is secondary to COPD exacerbation counseling regarding smoking cessation was provided patient will be started on inhalational treatments and systemic steroids -Ruled out acute coronary syndromes: Cardiology evaluated the patient -Leukocytosis secondary to bronchitis -COPD with acute exacerbation -hyperlipidemia -hypertension -Sleep apnea -Hypothyroidism -DVT prophylaxis: Lovenox Plan: Will continue IV Lasix another day and follow-up with repeat labs Recommend Accu-Cheks before meals and at bedtime and sliding scale Patient is continued on IV steroids and will transition to a prednisone taper on discharge Continue to wean FiO2 as tolerated with possible home O2 assessment Encouraged incentive spirometer use at least 10 times every hour while awake Encouraged increased activity as tolerated Possible discharge in 24 hours The impression and plan of care has been dictated as a scribe by Mary Maza, Nurse Practitioner as directed. MD Alexia I have performed a history and examination and MDM of this patient, discussed the same with the dictator, and agree with the dictator's assessment and plan as written ,documented as a scribe. Based on total visit time, I have performed more than 50% of the visit. Objective - Vital Signs Vital signs: Vital Signs Temp 97.6 F 01/20/22 08:00 Pulse 67 01/20/22 11:40 Resp 18 01/20/22 08:00 BP 125/70 01/20/22 08:00 Pulse Ox 95 01/20/22 08:21 FiO2 Intake & Output 01/19/22 01/20/22 01/20/22 18:59 06:59 18:59 Intake Total 354 300 240 Output Total 500 800 Balance -146 -500 240 Weight 79.4 kg Intake: Oral 354 300 240 Output: Urine 500 800 Other: Voiding Method Toilet # Voids 2 - Labs CBC & Chem 7: 01/21/22 09:00 01/21/22 09:00 Labs: Abnormal Lab Results - Last 24 Hours (Table) 01/19/22 01/19/2201/20/22 Range/Units 16:50 21:20 03:39 WBC (3.8-10.6) k/uL Sodium (137-145) mmol/L Chloride (98-107) mmol/L Carbon Dioxide (22-30) mmol/L BUN (7-17) mg/dL Glucose (74-99) mg/dL POC Glucose (mg/dL) 180 H 176 H 182 H (70-110) mg/dL 01/20/22 01/20/22 01/20/22 Range/Units 06:25 07:17 07:17 WBC 12.6 H (3.8-10.6) k/uL Sodium 131 L (137-145) mmol/L Chloride 94 L (98-107) mmol/L Carbon Dioxide 31 H (22-30) mmol/L BUN 18 H (7-17) mg/dL Glucose 155 H (74-99) mg/dL POC Glucose (mg/dL) 180 H (70-110) mg/dL 01/20/22 Range/Units 11:45 WBC (3.8-10.6) k/uL Sodium (137-145) mmol/L Chloride (98-107) mmol/L Carbon Dioxide (22-30) mmol/L BUN (7-17) mg/dL Glucose (74-99) mg/dL POC Glucose (mg/dL) 191 H (70-110) mg/dL Microbiology - Last 24 Hours (Table) 01/18/22 10:44 Gram Stain - Preliminary Sputum Sputum Culture - Preliminary Streptococcus pneumoniae
[2022-01-21 11:54] LABS: Glucose,Whole Blood 151 mg/dL (70-110)
[2022-01-21 19:09] LABS: Glucose,Whole Blood 179 mg/dL (70-110)
[2022-01-21 20:34] LABS: Glucose,Whole Blood 174 mg/dL (70-110)
--- NOTE | 2022-01-22 01:15 | P.PN ---
Subjective Progress Note Date: 01/21/22 61-year-old the came in with compensative shortness of breath and episodes of chest discomfort. Patient had mildly elevated troponins of 03 because of which patient was sent in from [facility] patient has a BNP of 1850. Patient chest x-ray showed some bilateral pleural effusions and mild heart failure patient had a normal ejection fraction the past. Patient is comparing of cough with green sputum production. Patient chest pain is pleuritic in nature d-dimer is normal 0.44. Patient does smoke daily a pack a day. 01/19/2022 Patient's wheezing is better patient is being treated for COPD exacerbation patient is on 4 L of oxygen. Cardiology evaluated the patient troponin elevation is not high enough for acute type 1 myocardial infarction 01/20/2022 Patient is seen and evaluated and follow-up currently maintained on medications for COPD exacerbation and continues on 3 L of oxygen although oxygen saturation is 95%. Recommend to wean FiO2 as tolerated. Patient also being continued on low-dose 20 mg IV Lasix and will transition to oral Lasix on discharge. Patient is continued on antibiotics along with IV steroids along with breathing inhalational treatments. Cardiology is following and recommending continuing current medications and outpatient follow-up. Patient with incentive spirometer at the bedside and recommend continue using at least 10 times every hour while awake. Sputum cultures showing Streptococcus pneumoniae and will transition to oral cefdinir on discharge. Patient currently afebrile denies worsening shortness of breath or chest pain. Patient denies nausea or vomiting and is tolerating diet. Recommend continue monitoring blood sugars and continue sliding scale for now. 01/21/2022 Patient is seen and evaluated in follow-up this morning and has been weaning FI02 as tolerated. Down to 1.5 L via NC and will require 02 on discharge to manage COPD> Patient is continued on duonebs, IV steroids, and IV lasix and will transition to oral on discharge along with a prednisone taper. Patient has been cleared by cardiology. Patient is anxious to go home. No computers available today to arrange for home 02 and case management will be consulted to set up oxygen for discharge. Will discharge in 24 hours and patient is agreeable. Discussed the importance of smoking cessation. Encouraged incentive spirometer use as well. Constitutional: Denied any fatigue denied any fever. Cardio vascular: denied any chest pain, palpitations Gastrointestinal denied any nausea vomiting Pulmonary: Still short of breath although feels is improved Neurologic denied any new focal deficits All inpatient medications were reviewed and appropriate changes in these m edications as dictated in the interval history and assessment and plan. PHYSICAL EXAMINATION: GENERAL: The patient is alert and oriented x3, not in any acute distress. Well developed, well nourished. HEENT: Pupils are round and equally reacting to light. EOMI. No scleral icterus. No conjunctival pallor. Normocephalic, atraumatic. No pharyngeal erythema. No thyromegaly. CARDIOVASCULAR: S1 and S2 present. No murmurs, rubs, or gallops. PULMONARY: Expiratory wheezing on exam bilateral rhonchi, some improvement in wheezing ABDOMEN: Soft, nontender, nondistended, normoactive bowel sounds. No palpable organomegaly. MUSCULOSKELETAL: No joint swelling or deformity. EXTREMITIES: No cyanosis, clubbing, or pedal edema. NEUROLOGICAL: Gross neurological examination did not reveal any focal deficits. SKIN: No rashes. Assessment: -Chest pain shortness of breath: Secondary to bacterial bronchitis for which patient is on azithromycin patient shortness of breath is secondary to COPD exacerbation counseling regarding smoking cessation was provided patient will be started on inhalational treatments and systemic steroids -Ruled out acute coronary syndromes: Cardiology evaluated the patient -Leukocytosis secondary to bronchitis -COPD with acute exacerbation -hyperlipidemia -hypertension -Sleep apnea -Hypothyroidism -DVT prophylaxis: Lovenox Plan: Will continue IV Lasix another day and follow-up in am with case management to arrange home 02 to manage COPD as patient will require 1.5 L via NC on discharge Recommend Accu-Cheks before meals and at bedtime and sliding scale Patient is continued on IV steroids and will transition to a prednisone taper on discharge Continue to wean FiO2 as tolerated with home O2 assessment in am Encouraged incentive spirometer use at least 10 times every hour while awake Encouraged increased activity as tolerated Possible discharge in 24 hours The impression and plan of care has been dictated by Mary Maza, Nurse Practitioner as directed. Dr. Nikita MD I have performed a history and examination and MDM of this patient, discussed the same with the dictator, and agree with the dictator's assessment and plan as written ,documented as a scribe. Based on total visit time, I have performed more than 50% of the visit. Objective - Vital Signs Vital signs: Vital Signs Temp 98 F 01/21/22 08:00 Pulse 75 09/06/22 08:00 Resp 17 01/21/22 08:00 BP 125/75 01/21/22 08:00 Pulse Ox 94 L 01/21/22 08:00 FiO2 Intake & Output 01/20/22 01/21/22 01/21/22 18:59 06:59 18:59 Intake Total 462 118 Output Total 2550 1450 Balance -2088 -1450 118 Weight 78.4 kg Intake: Oral 462 118 Output: Urine 2550 1450 Other: Voiding Method Toilet Toilet # Voids 5 - Labs CBC & Chem 7: 01/21/22 09:00 01/21/22 09:00 Labs: Abnormal Lab Results - Last 24 Hours (Table) 01/20/22 01/20/22 01/20/22 Range/Units 11:45 16:45 21:13 WBC (3.8-10.6) k/uL Neutrophils # (1.3-7.7) k/uL Sodium (137-145) mmol/L Chloride (98-107) mmol/L Carbon Dioxide (22-30) mmol/L BUN (7-17) mg/dL Glucose (74-99) mg/dL POC Glucose (mg/dL) 191 H 158 H 227 H (70-110) mg/dL 01/21/22 01/21/22 01/21/22 Range/Units 06:02 09:00 09:00 WBC 11.8 H (3.8-10.6) k/uL Neutrophils # 9.7 H (1.3-7.7) k/uL Sodium 132 L (137-145) mmol/L Chloride 90 L (98-107) mmol/L Carbon Dioxide 32 H (22-30) mmol/L BUN 19 H (7-17) mg/dL Glucose 230 H (74-99) mg/dL POC Glucose (mg/dL) 171 H (70-110) mg/dL Microbiology - Last 24 Hours (Table) 01/18/22 10:44 Gram Stain - Preliminary Sputum Sputum Culture - Preliminary Streptococcus pneumoniae
[2022-01-22] MEDS: IPRATROPIUM-ALBUTEROL 3 ML NEB INHALATION SCH ×3 (03:03→11:20)
[2022-01-22 06:50] LABS: Glucose,Whole Blood 139 mg/dL (70-110)
[2022-01-22] MEDS: INSULIN ASPART (NovoLOG) 100 UNIT/ML VIAL SQ SCH ×2 (06:57→11:43)
[2022-01-22] MEDS: PANTOPRAZOLE 40 MG TABLET PO SCH (06:58)
[2022-01-22] MEDS: SYMBICORT 160-4.5 MCG INHALER INHALATION SCH (08:00)
[2022-01-22] MEDS ORDERED: CEFDINIR 300 MG CAP PO SCH (09:00)
[2022-01-22 09:38] VITALS: RESP 20
[2022-01-22] MEDS: METOPROLOL TARTRATE 25 MG TAB PO SCH (09:39)
[2022-01-22] MEDS: ASPIRIN 81 MG PO SCH (09:39)
[2022-01-22] MEDS: MAGNESIUM OXIDE 400 MG TAB PO SCH (09:39)
[2022-01-22] MEDS: NICOTINE 14MG/24HR PATCH TRANSDERM SCH (09:40)
[2022-01-22] MEDS: lisinopriL 10 MG TAB PO SCH (09:40)
[2022-01-22] MEDS: methylPREDNISolone SOD SUCCI 40 MG/ML 1 ML VIAL IV SCH (09:40)
[2022-01-22] MEDS: FUROSEMIDE 10 MG/ML 2 ML VIAL IV SCH (09:40)
[2022-01-22] MEDS: ENOXAPARIN 40 MG/0.4 ML SYRINGE SQ SCH (09:40)
[2022-01-22] MEDS: ESCITALOPRAM 10 MG TAB PO SCH (09:40)
[2022-01-22] MEDS: ALPRAZolam 1 MG TAB PO PRN (09:51)
[2022-01-22 11:40] LABS: Glucose,Whole Blood 125 mg/dL (70-110)
[2022-01-22 12:35] VITALS: BP 126/61; PULSE 74; TEMP 97.9
[2022-01-22 14:26] VITALS: BMI 34.3
== END 2022-01-22 16:13 | disposition home or self-care (01) | DRG 191 ==
LOC: EC 19:35 → 3SCARD 20:49
PROVIDERS: ADMIT Internal Medicine; ATTEND Internal Medicine
DX: J44.1 Chronic obstructive pulmonary disease with (acute) exacerbation (principal); I42.9 Cardiomyopathy, unspecified; J98.11 Atelectasis; J20.8 Acute bronchitis due to other specified organisms; B95.3 Streptococcus pneumoniae as the cause of diseases classified elsewhere; I50.9 Heart failure, unspecified; D72.829 Elevated white blood cell count, unspecified; E03.9 Hypothyroidism, unspecified; I11.0 Hypertensive heart disease with heart failure; R00.0 Tachycardia, unspecified; E11.9 Type 2 diabetes mellitus without complications; E78.5 Hyperlipidemia, unspecified; F32.A Depression, unspecified; F41.9 Anxiety disorder, unspecified; G47.30 Sleep apnea, unspecified; I25.10 Atherosclerotic heart disease of native coronary artery without angina pectoris; Z98.51 Tubal ligation status; I25.2 Old myocardial infarction; Z79.899 Other long term (current) drug therapy; Z90.710 Acquired absence of both cervix and uterus; Z95.5 Presence of coronary angioplasty implant and graft; Z98.84 Bariatric surgery status; Z71.6 Tobacco abuse counseling; Z88.6 Allergy status to analgesic agent
CPT/HCPCS: 36415; 71045; 80048; 80053; 80061; 83036; 83735; 83880; 84145; 84484; 85025; 85027; 85379; 85730; 87070; 87205; 93005; 94640; 94760; 96365; 96366; 96375; 99285

== ENCOUNTER 2022-09-12 07:02 | Day surgery (SDC) | payer MEDICARE, OTHER ==
[2022-09-09 09:05] VITALS: BMI 36.3
[~2022-09-12 07:02] MED LIST changes: +DEXAMETHASONE SOD PHOSPHATE 4 MG/ML 1 ML VIAL IV ONE; +HEPARIN SODIUM,PORCINE/PF 5,000 UNIT/0.5 ML SYRINGE SQ PRN; -IV FLUID CONTINUATION 750 ML IV ONE; +LACTATED RINGERS 1,000 ML IV SCH; -LIDOCAINE 1% INJ 10MG/ML (20 ML MDV) SQ ONE; +MIDAZOLAM 2 MG/2 ML VIAL IV PRN; +ONDANSETRON 4 MG/2 ML VIAL IVP ONE; +SCOPOLAMINE 1 MG/72 HR PATCH TRANSDERM ONE; -fentaNYL (PF) 50 MCG/ML 2 ML AMP ONE
--- NOTE | 2022-09-12 07:41 | P.GSHP ---
History of Present Illness H&P Date: 09/12/22 CHIEF COMPLAINT: Ventral hernia. HISTORY OF PRESENT ILLNESS: The patient is a 65-year-old female who presents with swelling along the abdomen for over 6 month with pain and tenderness. Her symptoms are worsening. Findings were consistent with incisional ventral hernia. Now she presents for further evaluation and management. PAST MEDICAL HISTORY: Please see list and reviewed. PAST SURGICAL HISTORY: Please see list and reviewed. MEDICATIONS: Please see list and reviewed. ALLERGIES: Please see list and reviewed. SOCIAL HISTORY: Please see list and reviewed. FAMILY HISTORY: No reports of Crohn disease or ulcerative colitis. REVIEW OF ORGAN SYSTEMS: CONSTITUTIONAL: No reports of fevers or chills. Has morbid obesity. GI: Denies any blood in stools or constipation. HEENT: Denies any trouble with vision, hearing or nosebleeds. No difficulty swallowing. LYMPHATIC: The patient denies any lumps and bumps around the neck. ENDOCRINE: Denies any thyroid disorders. Has blood sugar glucose intolerance. RESPIRATORY: Denies pneumonia. Denies any troubles with breathing or dyspnea on exertion. CARDIOVASCULAR: Has hypertensive heart disease. GENITOURINARY: Denies any blood in urine or increased urinary frequency. MUSCULOSKELETAL: Has back pain, stiffness, joint arthritis. NEUROLOGIC: Has numbness or tingling along the distal extremities. No seizure disorders or headaches. PSYCHIATRIC: Has depression. No suidical ideation. HEMATOLOGIC: Denies any abnormal bleeding or bruising. BREASTS: Denies any breast lumps, pain or nipple discharge. PHYSICAL EXAM: VITAL SIGNS: Stable GENERAL: Well-developed pleasant female in no acute distress. HEENT: No scleral icterus. Extraocular movements grossly intact. Moist buccal mucosa. NECK: Supple without lymphadenopathy. CHEST: Unlabored respirations. Equal bilateral excursions. CARDIOVASCULAR: Regular rate and rhythm. Distal 2+ pulses. ABDOMEN: Soft, nondistended. Ventral hernia of the abdomen over 6 cm without skin changes. Protuberant. MUSCULOSKELETAL: No clubbing, cyanosis, or edema. SKIN: Well perfused. PSYCH: Alert and oriented. No focal or lateralizing signs. ASSESSMENT: 1. Ventral hernia. 2. Morbid obesity, BMI 36.4 PLAN: 1. Recommend proceeding with robotic ventral hernia repair with mesh. 2. Benefits and risks of surgical intervention was discussed including possibility of open technique. 3. DVT prophylaxis. 4. Antibiotic prophylaxis. 5. She is elevated risk with BMI over 35 and morbid obesity. 6. Nutritional assessment for BMI over 35 addressed 7. Non-narcotic pain managment reviewed. 8. Tobacco cessation and counseling performed. 9. Diabetes with strict glycemic control reviewed. 10. She is elevated risk due to multiple co-morbidities. 11. Inpatient hospitalization for pain management and hyperglycemic control Past Medical History Past Medical History: Chest Pain / Angina, COPD, Diabetes Mellitus, GERD/Reflux, Hyperlipidemia, Hypertension, Myocardial Infarction (NH) Additional Past Medical History / Comment(s): Lower back pain. Last Myocardial Infarction Date:: 12/01/20 History of Any Multi-Drug Resistant Organisms: None Reported Past Surgical History: Back Surgery, Bariatric Surgery, Cholecystectomy, Heart Catheterization With Stent, Hysterectomy, Orthopedic Surgery, Tubal Ligation Additional Past Surgical History / Comment(s): Neck and back surgery X4, bilateral carpal tunnel, rouxen y-gastric bypass, EGD. Past Anesthesia/Blood Transfusion Reactions: No Reported Reaction Date of Last Stent Placement:: 12/01/20 Smoking Status: Former smoker - Past Family History Mother Family Medical History: Congestive Heart Failure (CHF) Father Family Medical History: Respiratory Disorder Medications and Allergies Home Medications Medication Instructions Recorded Confirmed Type Albuterol Sulfate [Ventolin HFA] 2 puff INHALATION Q4H PRN 12/01/20 09/09/22 History Cholecalciferol (Vitamin D3) 125 mcg PO DAILY 12/01/20 09/09/22 History [Vitamin D3 (5000 Iu)] Magnesium Oxide 400 mg PO BID 12/01/20 09/09/22 History Pantoprazole Sodium [Protonix] 40 mg PO QAM 12/01/20 09/09/22 History Nitroglycerin Sl Tabs [Nitrostat] 0.4 mg SUBLINGUAL Q5M PRN #20 tab 12/04/20 09/09/22 Rx Potassium Chloride [Klor-Con 10 ER] 10 meq PO DAILY 09/05/21 09/09/22 History ALPRAZolam [Xanax] 0.25 mg PO BID PRN 01/17/22 09/09/22 History Budesonide/Glycopyr/Formoterol 2 puff INHALATION BID 01/17/22 09/09/22 History [Breztri Aerosphere Inhaler] Buprenorphine HCl/Naloxone HCl 1 film SL BID 01/17/22 09/09/22 History [Buprenorphine-Nalox 8-2Mg Film] Cetirizine HCl 10 mg PO DAILY PRN 01/17/22 09/09/22 History Escitalopram Oxalate [Lexapro] 20 mg PO QAM 01/17/22 09/09/22 History Vitamin K 100 Mcg 100 mcg PO DAILY 01/17/22 09/09/22 History hydrOXYzine HCL [Atarax] 50 mg PO Q4-6H PRN 01/17/22 09/09/22 History Acetaminophen Tab [Tylenol] 650 mg PO Q6HR PRN tab 01/22/22 09/09/22 Rx Aspirin 81 mg PO DAILY #30 tab 01/22/22 09/09/22 Rx Metoprolol Tartrate [Lopressor] 25 mg PO BID #60 tab 01/22/22 09/09/22 Rx Ascorbic Acid [Vitamin C] 1 tab PO DAILY 07/25/22 09/09/22 History Atorvastatin [Lipitor] 40 mg PO HS 07/25/22 09/09/22 History B12/Methyltetrahydrofolate/B6 1 each PO DAILY 07/25/22 09/09/22 History [Methyl S79-Arzwfk Folate-P5p (Foltx geq)] Bumetanide [BUMEX] 2 mg PO BID 07/25/22 09/09/22 History Ferrous Sulfate [Feosol] 1 tab PO DAILY 07/25/22 09/09/22 History [place]-3/Dha/Epa/Fish Oil [Fish Oil 1 tab PO DAILY 07/25/22 09/09/22 History 500 mg Softgel] Sodium Chloride Tab 1 gm PO BID 07/25/22 09/09/22 History Tumeric 1 tab PO DAILY 07/25/22 09/09/22 History Valsartan 80 mg PO QAM 07/25/22 09/09/22 History Vitamin A 1 tab PO DAILY 07/25/22 09/09/22 History Zinc Citrate [Zinc] 1 tab PO DAILY 07/25/22 09/09/22 History metFORMIN HCL 500 mg PO BID 07/25/22 09/09/22 History Ipratropium-Albuterol Nebulize 3 ml INHALATION Q4H 09/09/22 09/09/22 History [Duoneb 0.5 mg-3 mg/3 ml Soln] Allergies Allergy/AdvReac Type Severity Reaction Status Date / Time atorvastatin calcium Allergy Anaphylaxis Verified 09/09/22 08:43 [From Lipitor] citalopram [From Celexa] Allergy Unknown Verified 09/09/22 08:43 NSAIDS (Non-Steroidal Allergy Unknown Verified 09/09/22 08:43 Anti-Inflamma pregabalin [From Lyrica] Allergy Anaphylaxis Verified 09/09/22 08:43 rosuvastatin calcium Allergy Anaphylaxis Verified 09/09/22 08:43 [From Crestor] duloxetine [From Cymbalta] AdvReac Nausea Verified 09/09/22 08:43
[2022-09-12] MEDS ORDERED: ACETAMINOPHEN TAB 500 MG TAB PO STA (07:43)
[2022-09-12 08:23] LABS: Glucose,Whole Blood 146 mg/dL (70-110)
[2022-09-12 08:27] LABS: Basophils % (A) 0 %; Eosinophils # (A) 0.3 k/uL (0-0.7); Eosinophils % (A) 4 %; HCT 34.4 % (34.0-46.0); HGB 11.2 gm/dL (11.4-16.0); Lymphocytes # (A) 1.5 k/uL (1.0-4.8); Lymphocytes % (A) 19 %; MCH 27.8 pg (25.0-35.0); MCHC 32.4 g/dL (31.0-37.0); MCV 85.7 fL (80.0-100.0); Mean Platelet Volume 7.6; Monocytes # (A) 0.4 k/uL (0-1.0); Monocytes % (A) 5 %; Neutrophils # (A) 5.2 k/uL (1.3-7.7); Neutrophils % (A) 68 %; Platelet Count 273 k/uL (150-450); RBC 4.02 m/uL (3.80-5.40); RDW 15.5 % (11.5-15.5); WBC 7.6 k/uL (3.8-10.6)
[2022-09-12 08:53] LABS: Albumin 3.9 g/dL (3.5-5.0); Calcium 8.8 mg/dL (8.4-10.2); Total Bilirubin 0.5 mg/dL (0.2-1.3); Total Protein 6.9 g/dL (6.3-8.2)
[2022-09-12 09:10] LABS: Potassium 4.8 mmol/L (3.5-5.1)
[2022-09-12] MEDS ORDERED: GLYCOPYRROLATE 0.2 MG/ML 2 ML VIAL ONE (09:41)
[2022-09-12] MEDS ORDERED: ROCURONIUM 10 MG/ML (5 ML VIAL) IV ONE (09:41)
[2022-09-12] MEDS ORDERED: PROPOFOL 10 MG/ML 20 ML VIAL IV ONE (09:41)
[2022-09-12] MEDS ORDERED: ROPIVACAINE 5 MG/ML 30 ML VIAL ONE (09:41)
[2022-09-12] MEDS ORDERED: NEOSTIGMINE 1 MG/ML 10 ML VIAL ONE (09:41)
[2022-09-12] MEDS ORDERED: SUCCINYLCHOLINE CHLORIDE 200 MG/10 ML VIAL IV ONE (09:41)
[2022-09-12] MEDS ORDERED: ePHEDrine 50 MG/ML 1 ML VIAL ONE (09:41)
[2022-09-12] MEDS ORDERED: SODIUM CHLORIDE 0.9% (PF) 10 ML VIAL ONE (09:41)
[2022-09-12] MEDS ORDERED: fentaNYL (PF) 50 MCG/ML 2 ML AMP ONE (09:41)
[2022-09-12] MEDS ORDERED: MIDAZOLAM 2 MG/2 ML VIAL ONE (09:41)
[2022-09-12] MEDS ORDERED: LIDOCAINE 2% INJ 20 MG/ML (2 ML VIAL) ONE (09:41)
--- NOTE | 2022-09-12 09:50 | P.ANPRN ---
Procedure Note - Anesthesia - Nerve Block Performed Bilateral Rectus Abdominis Time Out Performed: Yes (:) Date of Procedure: 09/12/22 Procedure Start Time: Procedure Stop Time: : Location of Patient: PreOp Indication: Acute Post-Operative Pain, Requested by Surgeon (Dr Blunt) Sedation Type: Sedate with meaningful contact maintained Preparation: Sterile Prep Position: Supine Catheter: None Needle Types: Pajunk Needle Gauge: 21 Ultrasound used to visualize needle placement: Yes Ultrasound used to observe medication spread: Yes Injectate: 0.5% Ropivacaine (see comment for volume) (15cc +10cc PF Normal saline each side) Blood Aspirated: No Pain Paresthesia on Injection Noted: No Resistance on Injection: Normal Image Stored and Saved: Yes Events: Uneventful and Well Tolerated
[2022-09-12] MEDS ORDERED: BUPIVACAIN-EPI 0.25%-1:200,000 30 ML VIAL SQ ONE (10:15)
[2022-09-12 12:46] VITALS: TEMP 97.7
[2022-09-12] MEDS: HYDROmorphone 0.5 MG/0.5 ML SYRINGE IVP PRN ×2 (12:48→13:00)
[2022-09-12 12:50] VITALS: RESP 16
--- NOTE | 2022-09-12 13:28 | P.OP ---
Date of Procedure: 09/12/22 Description of Procedure: Incarcerated small bowel and large bowel. Retroperitoneal adhesions involving the small bowel and gastric bypass reviewed. Redundant sigmoid colon. Redundant hepatic flexure. No abnormality of gastric bypass identified. SURGEON: RIN BLUNT MD PREOPERATIVE DIAGNOSES: 1. Initial incisional ventral hernia with intermittent small bowel obstruction POSTOPERATIVE DIAGNOSES: 1. Initial incisional ventral hernia with intermittent small bowel obstruction, incarcerated 4 x 5 cm 2. Intra-abdominal peritoneal adhesions, severe OPERATION: 1. Robotic-assisted daVinci Xi laparoscopic repair of initial incarcerated incisional ventral hernia 4 x 5 cm with fascial imbrication 3 with mesh 2. Robotic-assisted daVinci Xi laparoscopic extensive lysis of adhesions over 1 hour ANESTHESIA: General with local ESTIMATED BLOOD LOSS: 5 mL. SPECIMENS: None. COMPLICATIONS: None. Operative Findings: 1. Severe intra-abdominal adhesions with initial trochars placed along the upper abdomen then repositioned along the right lateral abdominal wall 2. Extensive lysis of adhesions over 1 hour robotic-assisted approach INDICATIONS: The patient is a who presents with incisional ventral hernia urgical intervention with laparoscopic versus robotic and open t echniques were reviewed. Placement of mesh was also reviewed. Benefits and risks were thoroughly described. Informed consent was obtained. DESCRIPTION OF PROCEDURE: The patient was brought into the operating room and laid in supine position. After general induction, the abdomen had been prepped and draped in standard sterile fashion. Ioban draping was also placed. Prior to incision, a timeout protocol was confirmed with surgical team regarding the patient's name including procedures to be performed. The robot was primed prior to the procedure. A field block using local anesthetis was placed along hernia site including the proposed port sites. Initial incision was made with an #11 blade along the left upper quadrant. A 0 degree 5 mm laparoscopic trocar entry was performed. Diagnostic laparoscopy demonstrated severe peritoneal adhesions along the midline; however the upper abdomen was free. Peritoneal adhesions of small bowel to the abdominal wall along the midline was identified. A 8 mm trocar was placed along the epigastrium and right upper quadrant. The 5- mm port was exchanged for an 8 mm robotic port. Placements of the ports were 20 cm from the target anatomy and 10 cm apart. The [employer] XI robot was previously primed, prepped and draped then docked along the left side of the patient. I then sat at the robot Da Rafael XI console where working arms of the robot including Bovie cautery connected to robotic scissors, vessel sealer and graspers placed by the speech therapy assistant. Adhesions along the midline were initially addressed with scissors and vessel sealer however limited view of the left upper quadrant was confirmed. The robot was docked for repositioning of trochars. Additional two ports were then placed along the right lateral abdominal wall 8 mm trochars. The robot was re-docked. The right side was positioned up and extensive lysis of adhesions occurred over 1 hour without enterotomies using vessel sealer. The hernia bordering fascia was cleaned of peritoneal fat. Next, hemostasis was checked with cautery. The hernia defect was oversewn using #1 StrataFix with fascial imbrication 3. Mesh placement was avoided given the severe peritoneal adhesions and foreign body reaction to the mesh. A final endoscopic imaging was obtained. All instruments and pneumoperitoneum were evacuated from the abdominal cavity. The da Rafael XI robot was undocked from the patient. I re-scrubbed into the case for closure of incisions. The incisions were reapproximated using 4-0 Monocryl in an interrupted subcuticular fashion. Liquid glue was applied to the skin. At the end of the procedure, needle, sponge, and instrument count had been verified correct by surgical technology instructor. The patient was taken to the postanesthesia care unit in stable condition with abdominal binder. Plan - Discharge Summary Discharge Rx Participant: No New Discharge Prescriptions: New Simethicone [Gas-X] 125 mg PO AC-TID PRN #20 capsule PRN Reason: Pain Acetaminophen Tab [Tylenol Tab] 1,000 mg PO Q6HR PRN #30 tablet PRN Reason: Pain Continue Escitalopram Oxalate [Lexapro] 20 mg PO QAM Cetirizine HCl 10 mg PO DAILY PRN PRN Reason: Allergy Symptoms Buprenorphine HCl/Naloxone HCl [Buprenorphine-Nalox 8-2Mg Film] 1 film SL BID hydrOXYzine HCL [Atarax] 50 mg PO Q4-6H PRN PRN Reason: ANXIETY/ITCHING Acetaminophen Tab [Tylenol] 650 mg PO Q6HR PRN tab PRN Reason: Fever And/ Or Pain Valsartan 80 mg PO QAM Bumetanide [BUMEX] 2 mg PO BID Zinc Citrate [Zinc] 1 tab PO DAILY [place]-3/Dha/Epa/Fish Oil [Fish Oil 500 mg Softgel] 1 tab PO DAILY B12/Methyltetrahydrofolate/B6 [Methyl C25-Pjzmcg Folate-P5p (Foltx geq)] 1 each PO DAILY Ipratropium-Albuterol Nebulize [Duoneb 0.5 mg-3 mg/3 ml Soln] 3 ml INHALATION Q4H Cholecalciferol (Vitamin D3) [Vitamin D3 (5000 Iu)] 125 mcg PO DAILY Albuterol Sulfate [Ventolin HFA] 2 puff INHALATION Q4H PRN PRN Reason: Shortness Of Breath Pantoprazole Sodium [Protonix] 40 mg PO QAM Magnesium Oxide 400 mg PO BID Nitroglycerin Sl Tabs [Nitrostat] 0.4 mg SUBLINGUAL Q5M PRN #20 tab PRN Reason: Chest Pain Potassium Chloride [Klor-Con 10 ER] 10 meq PO DAILY Budesonide/Glycopyr/Formoterol [Breztri Aerosphere Inhaler] 2 puff INHALATION BID ALPRAZolam [Xanax] 0.25 mg PO BID PRN PRN Reason: Anxiety Vitamin K 100 Mcg 100 mcg PO DAILY Aspirin 81 mg PO DAILY #30 tab Metoprolol Tartrate [Lopressor] 25 mg PO BID #60 tab Sodium Chloride Tab 1 gm PO BID Atorvastatin [Lipitor] 40 mg PO HS metFORMIN HCL 500 mg PO BID Ferrous Sulfate [Feosol] 1 tab PO DAILY Ascorbic Acid [Vitamin C] 1 tab PO DAILY Discontinued Tumeric 1 tab PO DAILY Vitamin A 1 tab PO DAILY Discharge Medication List Albuterol Sulfate [Ventolin HFA] 2 puff INHALATION Q4H PRN 12/01/20 [History] Cholecalciferol (Vitamin D3) [Vitamin D3 (5000 Iu)] 125 mcg PO DAILY 12/01/20 [History] Magnesium Oxide 400 mg PO BID 12/01/20 [History] Pantoprazole Sodium [Protonix] 40 mg PO QAM 12/01/20 [History] Nitroglycerin Sl Tabs [Nitrostat] 0.4 mg SUBLINGUAL Q5M PRN #20 tab 12/04/20 [Rx] Potassium Chloride [Klor-Con 10 ER] 10 meq PO DAILY 09/05/21 [History] ALPRAZolam [Xanax] 0.25 mg PO BID PRN 01/17/22 [History] Budesonide/Glycopyr/Formoterol [Breztri Aerosphere Inhaler] 2 puff INHALATION BID 01/17/22 [History] Buprenorphine HCl/Naloxone HCl [Buprenorphine-Nalox 8-2Mg Film] 1 film SL BID 01/17/22 [History] Cetirizine HCl 10 mg PO DAILY PRN 01/17/22 [History] Escitalopram Oxalate [Lexapro] 20 mg PO QAM 01/17/22 [History] Vitamin K 100 Mcg 100 mcg PO DAILY 01/17/22 [History] hydrOXYzine HCL [Atarax] 50 mg PO Q4-6H PRN 01/17/22 [History] Acetaminophen Tab [Tylenol] 650 mg PO Q6HR PRN tab 01/22/22 [Rx] Aspirin 81 mg PO DAILY #30 tab 01/22/22 [Rx] Metoprolol Tartrate [Lopressor] 25 mg PO BID #60 tab 01/22/22 [Rx] Ascorbic Acid [Vitamin C] 1 tab PO DAILY 07/25/22 [History] Atorvastatin [Lipitor] 40 mg PO HS 07/25/22 [History] B12/Methyltetrahydrofolate/B6 [Methyl L28-Hnniic Folate-P5p (Foltx geq)] 1 each PO DAILY 07/25/22 [History] Bumetanide [BUMEX] 2 mg PO BID 07/25/22 [History] Ferrous Sulfate [Feosol] 1 tab PO DAILY 07/25/22 [History] [place]-3/Dha/Epa/Fish Oil [Fish Oil 500 mg Softgel] 1 tab PO DAILY 07/25/22 [History] Sodium Chloride Tab 1 gm PO BID 07/25/22 [History] Valsartan 80 mg PO QAM 07/25/22 [History] Zinc Citrate [Zinc] 1 tab PO DAILY 07/25/22 [History] metFORMIN HCL 500 mg PO BID 07/25/22 [History] Ipratropium-Albuterol Nebulize [Duoneb 0.5 mg-3 mg/3 ml Soln] 3 ml INHALATION Q4H 09/09/22 [History] Acetaminophen Tab [Tylenol Tab] 1,000 mg PO Q6HR PRN #30 tablet 09/12/22 [Rx] Simethicone [Gas-X] 125 mg PO AC-TID PRN #20 capsule 09/12/22 [Rx] Follow up Appointment(s)/Referral(s): Rin Blunt MD [STAFF PHYSICIAN] - 09/16/22 Patient Instructions/Handouts: *Surgery [facility] - Managing Your Pain After Surgery Without Opioids, Laparoscopic Herniorrhaphy (IP), Lysis of Abdominal Adhesions (DC) Activity/Diet/Wound Care/Special Instructions: Using antibacterial soap. No lifting over 4 pounds 4 weeks, October 12September shower. No bathtub soaks for 2 weeks, September 26 Wear abdominal binder daily for comfort except for showering. Use ice along incisions for today to prevent swelling. Take tylenol, simethicone scheduled for 3 days for best pain relief Discharge Disposition: HOME SELF-CARE
[2022-09-12] MEDS ORDERED: LACTATED RINGERS 1,000 ML IV ONE (13:38)
[2022-09-12] MEDS ORDERED: SIMETHICONE 80 MG CHEWABLE PO ONE (14:04)
[2022-09-12] MEDS ORDERED: ACETAMINOPHEN TAB 500 MG TAB ONE (14:28)
[2022-09-12 14:29] LABS: Glucose,Whole Blood 193 mg/dL (70-110)
[2022-09-12 15:26] VITALS: BP 136/78; PULSE 62
== END 2022-09-12 15:40 | disposition home or self-care (01) ==
LOC: OR 07:02
PROVIDERS: ATTEND Surgery Plastic and Reconstructive Surgery
DX: K43.0 Incisional hernia with obstruction, without gangrene (principal); K66.0 Peritoneal adhesions (postprocedural) (postinfection); G89.18 Other acute postprocedural pain; E66.9 Obesity, unspecified; Z68.36 Body mass index [BMI] 36.0-36.9, adult; I20.9 Angina pectoris, unspecified; I25.2 Old myocardial infarction; J44.9 Chronic obstructive pulmonary disease, unspecified; E11.9 Type 2 diabetes mellitus without complications; K21.9 Gastro-esophageal reflux disease without esophagitis; I10 Essential (primary) hypertension; E78.5 Hyperlipidemia, unspecified; Z98.84 Bariatric surgery status; Z90.49 Acquired absence of other specified parts of digestive tract; Z87.891 Personal history of nicotine dependence; Z82.49 Family history of ischemic heart disease and other diseases of the circulatory system; Z79.51 Long term (current) use of inhaled steroids; Z79.82 Long term (current) use of aspirin; Z79.84 Long term (current) use of oral hypoglycemic drugs; Z79.899 Other long term (current) drug therapy; Z88.6 Allergy status to analgesic agent; Z88.8 Allergy status to other drugs, medicaments and biological substances; Z99.81 Dependence on supplemental oxygen
CPT/HCPCS: 49594; S2900; 64488; 80053; 85025

== ENCOUNTER 2023-03-05 17:22 | Inpatient (IN) | payer MEDICARE, OTHER ==
[2023-03-05] MEDS ORDERED: SODIUM CHLORIDE 0.9% 1,000 ML IV STA (18:08)
[2023-03-05] MEDS ORDERED: NALOXONE 0.4 MG/ML 1 ML VIAL IV PRN (18:37)
--- NOTE | 2023-03-05 18:37 | ED ---
General Adult HPI - General Chief complaint: Altered Mental Status Stated complaint: AMS Time Seen by Provider: 03/05/23 17:55 Source: EMS, RN notes reviewed, old records reviewed Mode of arrival: ambulatory Limitations: altered mental status - History of Present Illness Initial comments: Patient is a 62-year-old female who was transferred here from [facility]. Is a past medical history remarkable for COPD, angina, diabetes, hypertension, opiate dependence on Suboxone, hypertension, obesity. Was found at a local bank confused. Since have been ongoing throughout the day. Has chronic neck pain and is due to have surgery with Dr. Ramírez. Denies any other acute complaints. She has a history of getting intermittently confused but currently is more confused than baseline. Does not know the year. In really confused to place. Presents for further evaluation at this time. He was found to have a UTI at the outside facility. Also found to have stenosis of the bilateral carotids. He was transferred here for further evaluation as neurology and vascular are is not available at the facility. Other than confusion, no focal neuro deficits. - Related Data Home Medications Medication Instructions Recorded Confirmed Albuterol Sulfate [Ventolin HFA] 2 puff INHALATION RT-Q4H PRN 12/01/20 03/05/23 Cholecalciferol (Vitamin D3) 250 mcg PO DAILY 12/01/20 03/05/23 [Vitamin D3 (5000 Iu)] Magnesium Oxide 400 mg PO BID 12/01/20 03/05/23 Pantoprazole Sodium [Protonix] 40 mg PO DAILY 12/01/20 03/05/23 Potassium Chloride [Klor-Con 10 ER] 10 meq PO DAILY 09/05/21 03/05/23 ALPRAZolam [Xanax] 0.25 mg PO BID PRN 01/17/22 03/05/23 Budesonide/Glycopyr/Formoterol 2 puff INHALATION RT-BID 01/17/22 03/05/23 [Breztri Aerosphere Inhaler] Buprenorphine HCl/Naloxone HCl 1 film SL BID 01/17/22 03/05/23 [Buprenorphine-Nalox 8-2Mg Film] Cetirizine HCl 10 mg PO DAILY 01/17/22 03/05/23 Vitamin K 100 Mcg 100 mcg PO DAILY 01/17/22 03/05/23 Atorvastatin [Lipitor] 40 mg PO DIRECTED 07/25/22 03/05/23 Bumetanide [BUMEX] 2 mg PO BID 07/25/22 03/05/23 Ferrous Sulfate [Feosol] 325 mg PO DAILY 07/25/22 03/05/23 Sodium Chloride Tab 2 gm PO DAILY 07/25/22 03/05/23 Valsartan 80 mg PO DAILY 07/25/22 03/05/23 metFORMIN HCL 500 mg PO BID 07/25/22 03/05/23 Ipratropium-Albuterol Nebulize 3 ml INHALATION RT-QID PRN 09/09/22 03/05/23 [Duoneb 0.5 mg-3 mg/3 ml Soln] Escitalopram [Lexapro] 20 mg PO DIRECTED 03/05/23 03/05/23 FLUoxetine HCL 20 mg PO DIRECTED 03/05/23 03/05/23 Fluticasone Nasal [place] [Flonase 1 spray EA NOSTRIL DAILY 03/05/23 03/05/23 Nasal [place]] Metoprolol Tartrate [Lopressor] 25 mg PO HS 03/05/23 03/05/23 Metoprolol Tartrate [Lopressor] 50 mg PO DAILY 03/05/23 03/05/23 Multivitamins, Thera [Multivitamin 1 tab PO DAILY 03/05/23 03/05/23 (formulary)] Nicotine Polacrilex [Nicotine 2 mg MUCOUS MEM TID PRN 03/05/23 03/05/23 Lozenge] Tirzepatide [Mounjaro] 7.5 mg SQ WE 03/05/23 03/05/23 Venlafaxine HCl ER [Effexor Xr] 37.5 mg PO DIRECTED 03/05/23 03/05/23 Vitamin B Complex 1 cap PO DAILY 03/05/23 03/05/23 Zinc Gluconate [Zinc] 50 mg PO DAILY 03/05/23 03/05/23 predniSONE [Deltasone] 1 dose PO DIRECTED 03/05/23 03/05/23 Previous Rx's Medication Instructions Recorded Nitroglycerin Sl Tabs [Nitrostat] 0.4 mg SUBLINGUAL Q5M PRN #20 tab 12/04/20 Acetaminophen Tab [Tylenol] 650 mg PO Q6HR PRN tab 01/22/22 Aspirin 81 mg PO DAILY #30 tab 01/22/22 Simethicone [Gas-X] 125 mg PO AC-TID PRN #20 capsule 09/12/22 Allergies Allergy/AdvReac Type Severity Reaction Status Date / Time atorvastatin calcium Allergy Unknown Verified 03/05/23 21:27 [From Lipitor] citalopram [From Celexa] Allergy Unknown Verified 03/05/23 21:27 NSAIDS (Non-Steroidal Allergy Unknown Verified 03/05/23 21:27 Anti-Inflamma pregabalin [From Lyrica] Allergy Anaphylaxis Verified 03/05/23 21:27 rosuvastatin calcium Allergy Anaphylaxis Verified 03/05/23 21:27 [From Crestor] duloxetine [From Cymbalta] AdvReac Nausea Verified 03/05/23 21:27 Review of Systems ROS Statement: Those systems with pertinent positive or pertinent negative responses have been documented in the HPI. Review of Systems: CONST: Denies fever EYES: Denies blurry vision ENT: Denies nasal congestion C/V: Denies Chest pain RESP: Denies shortness of breath GI: Denies abdominal pain : Denies dysuria SKIN: Denies rash. MSK: Denies joint pain. NEURO: Denies headache ROS Other: All systems not noted in ROS Statement are negative. Past Medical History Past Medical History: Chest Pain / Angina, COPD, Diabetes Mellitus, GERD/Reflux, Hyperlipidemia, Hypertension, Myocardial Infarction (MA) Additional Past Medical History / Comment(s): Lower back pain. Last Myocardial Infarction Date:: 12/01/20 History of Any Multi-Drug Resistant Organisms: None Reported Past Surgical History: Back Surgery, Bariatric Surgery, Cholecystectomy, Heart Catheterization With Stent, Hysterectomy, Orthopedic Surgery, Tubal Ligation Additional Past Surgical History / Comment(s): Neck and back surgery X4, bilateral carpal tunnel, rouxen y-gastric bypass, EGD. Past Anesthesia/Blood Transfusion Reactions: No Reported Reaction Date of Last Stent Placement:: 12/01/20 Past Psychological History: Anxiety, Depression Smoking Status: Former smoker Past Alcohol Use History: None Reported, Unable to Obtain Past Drug Use History: Unable to Obtain - Past Family History Mother Family Medical History: Congestive Heart Failure (CHF) Father Family Medical History: Respiratory Disorder General Exam - General Exam Comments Initial Comments: General: Appears in no acute distress. HEAD: Normal with no signs of head trauma. EYES: PERRLA, EOMI, conjunctiva normal, no discharge. Pupils are 3 mm equal bilaterally. ENT: Hearing grossly intact, normal oropharynx. RESPIRATORY: Clear breath sounds bilaterally. No wheezes, rales, or rhonchi. C/V: Regular rate and rhythm. S1 and S2 auscultated, no edema, peripheral pulses 2+ and intact throughout ABD: Abd is soft, nontender, nondistended EXT: Normal range of motion, no obvious deformity SKIN: No rashes or lesions observed on exposed skin. NEURO: Alert and oriented 2. Confused to year. NIH otherwise is 0. GCS of 15. No focal deficits. Limitations: altered mental status Course Vital Signs 03/05/23 03/05/23 03/05/23 17:23 17:29 18:32 Temperature 98.5 F Pulse Rate 98 95 86 Respiratory 18 20 16 Rate Blood Pressure 161/76 151/79 151/79 O2 Sat by Pulse 95 93 L 95 Oximetry 03/05/23 03/05/23 19:00 20:15 Temperature Pulse Rate 75 93 Respiratory 20 18 Rate Blood Pressure 164/63 163/88 O2 Sat by Pulse 98 95 Oximetry Medical Decision Making - Medical Decision Making Was pt. sent in by a medical professional or institution (, PA, NUT AND BOLT ASSEMBLER, urgent care, hospital, or [facility]...) When possible be specific @ -Transferred from [facility] for neurology evaluation Did you speak to anyone other than the patient for history (EMS, parent, family, police, friend...)? What history was obtained from this source @ -Spoke with patient's son is at bedside who accepted the patient as well as what occurred today. Did you review nursing and triage notes (agree or disagree)? Why? @ -I reviewed and agree with nursing and triage notes Were old charts reviewed (outside hosp., previous admission, EMS record, old EKG, old radiological studies, urgent care reports/EKG's, [facility] records)? Report findings @ -Old charts reviewed. Differential Diagnosis (chest pain, altered mental status, abdominal pain women, abdominal pain men, vaginal bleeding, weakness, fever, dyspnea, syncope, headache, dizziness, GI bleed, back pain, seizure, CVA, palpatations, mental health, musculoskeletal)? @ -not applicable EKG interpreted by me (3pts min.). @ -As above X-rays interpreted by me (1pt min.). @ -None done CT interpreted by me (1pt min.). @ -None done U/S interpreted by me (1pt. min.). @ -None done What testing was considered but not performed or refused? (CT, X-rays, U/S, labs)? Why? @ -None What meds were considered but not given or refused? Why? @ -None Did you discuss the management of the patient with other professionals (professionals i.e. , PA, NUT AND BOLT ASSEMBLER, lab, RT, psych nurse, professor of social work, dye and chemical coordinator, teacher, correctional officer chief, outsole caser)? Give summary @ -I spoke with the admitting team, ALVINA Kendrick of [facility] who accepted the patient. Was smoking cessation discussed for >3mins.? @ -No Was critical care preformed (if so, how long)? @ -No Were there social determinants of health that impacted care today? How? (Homelessness, low income, unemployed, alcoholism, drug addiction, transportation, low edu. Level, literacy, decrease access to med. care, correction, rehab)? @ -No Was there de-escalation of care discussed even if they declined (Discuss DNR or withdrawal of care, Hospice)? DNR status @ -No What co-morbidities impacted this encounter? (DM, HTN, Smoking, COPD, CAD, Cancer, CVA, ARF, Chemo, Hep., AIDS, mental health diagnosis, sleep apnea, morbid obesity)? @ -None Was patient admitted / discharged? Hospital course, mention meds given and route, prescriptions, significant lab abnormalities, going to OR and other pertinent info. @ -Based on the patient's presentation and physical exam, was transferred for admission for neuro and vascular evaluation over concern for bilateral carotid artery stenosis. Patient originally presented confused and has a UTI as well. He is already on IV antibiotics. Received a dose of IV Rocephin which we will continue. Patient also be started on IV fluids. I will restart all home medications. She was given an aspirin. Patient's outside imaging was uploaded. Neurology consulted. Vascular surgery consulted. I did the patient as well as family members and they were in agreement with this plan.. Patient is no focal deficits. Still has intermittent confusion to the year. NIH otherwise 0. No concern for stroke at this time. I spoke with the admitting team, ALVINA Kendrick of [facility] who accepted the patient. Patient admitted in stable condition. Undiagnosed new problem with uncertain prognosis? @ -No Drug Therapy requiring intensive monitoring for toxicity (Heparin, Nitro, Insulin, Cardizem)? @ -No Were any procedures done? @ -No Diagnosis/symptom? @ -Confusion, UTI Acute, or Chronic, or Acute on Chronic? @ -Acute Uncomplicated (without systemic symptoms) or Complicated (systemic symptoms)? @ -Complicated Side effects of treatment? @ -No Exacerbation, Progression, or Severe Exacerbation? @ -No Poses a threat to life or bodily function? How? (Chest pain, [place], MA, pneumonia, PE, COPD, DKA, ARF, appy, cholecystitis, CVA, Diverticulitis, Homicidal, Suicidal, threat to staff... and all critical care pts) @ -Yes Diagnosis/symptom? @ -Carotid artery stenosis Acute, or Chronic, or Acute on Chronic? @ -Likely chronic Uncomplicated (without systemic symptoms) or Complicated (systemic symptoms)? @ -Uncomplicated Side effects of treatment? @ -none Exacerbation, Progression, or Severe Exacerbation] @ -no Poses a threat to life or bodily function? @ -no - Lab Data Result diagrams: 03/05/23 18:04 03/05/23 18:04 Lab Results 03/05/23 03/05/23 03/05/23 Range/Units 18:04 18:04 18:19 WBC 11.6 H (3.8-10.6) k/uL RBC 4.36 (3.80-5.40) m/uL Hgb 12.6 (11.4-16.0) gm/dL Hct 38.3 (34.0-46.0) % MCV 87.8 (80.0-100.0) fL MCH 28.9 (25.0-35.0) pg MCHC 32.9 (31.0-37.0) g/dL RDW 14.7 (11.5-15.5) % Plt Count 296 (150-450) k/uL MPV 7.8 Neutrophils % 80 % Lymphocytes % 13 % Monocytes % 5 % Eosinophils % 1 % Basophils % 0 % Neutrophils # 9.3 H (1.3-7.7) k/uL Lymphocytes # 1.5 (1.0-4.8) k/uL Monocytes # 0.5 (0-1.0) k/uL Eosinophils # 0.1 (0-0.7) k/uL Basophils # 0.0 (0-0.2) k/uL Sodium 140 (137-145) mmol/L Potassium 4.3 (3.5-5.1) mmol/L Chloride 103 (98-107) mmol/L Carbon Dioxide 27 (22-30) mmol/L Anion Gap 10 mmol/L BUN 25 H (7-17) mg/dL Creatinine 0.83 (0.52-1.04) mg/dL Est GFR (CKD-EPI)AfAm 89 (>60 ml/min/1.73 sqM) Est GFR (CKD-EPI)NonAf 77 (>60 ml/min/1.73 sqM) Glucose 122 H (74-99) mg/dL Calcium 9.4 (8.4-10.2) mg/dL Total Bilirubin 0.5 (0.2-1.3) mg/dL AST 26 (14-36) U/L ALT 21 (4-34) U/L Alkaline Phosphatase 114 (38-126) U/L Total Protein 6.8 (6.3-8.2) g/dL Albumin 3.9 (3.5-5.0) g/dL Urine Color Light Yellow Urine Appearance Cloudy H (Clear) Urine pH 6.5 (5.0-8.0) Ur Specific [place] 1.036 H (1.001-1.035) Urine Protein Trace H (Negative) Urine Glucose (UA) Negative (Negative) Urine Ketones 1+ H (Negative) Urine Blood Small H (Negative) Urine Nitrite Negative (Negative) Urine Bilirubin Negative (Negative) Urine Urobilinogen <2.0 (<2.0) mg/dL Ur Leukocyte Esterase Large H (Negative) Urine RBC 10 H (0-5) /hpf Urine WBC 112 H (0-5) /hpf Urine WBC Clumps Rare H (None) /hpf Hyaline Casts 1 (0-2) /lpf Urine Mucus Occasional H (None) /hpf - EKG Data -: EKG Interpreted by Me EKG Comments: 12-lead Electrocardiogram Interpretation Note EKG was reviewed and interpreted by myself. 12-lead ECG performed at 1858 is interpreted by me as revealing normal sinus rhythm with PVCs at a rate of 95 beats per minute. [place] is normal. [place] interval is 205 ms, QRS durations 101 ms, QTc is 416 ms.. There were no ST or T wave abnormalities to suggest myocardial ischemia or injury. R wave progression across the precordium was satisfactory. By my interpretation this EKG is non-diagnostic for acute ischemia. Disposition Clinical Impression: UTI (urinary tract infection), Confusion, Carotid stenosis Disposition: ADMITTED IP TO THIS HOSP Condition: Stable Time of Disposition: 18:30
[2023-03-05 18:40] LABS: Basophils % (A) 0 %; Eosinophils # (A) 0.1 k/uL (0-0.7); Eosinophils % (A) 1 %; HCT 38.3 % (34.0-46.0); HGB 12.6 gm/dL (11.4-16.0); Lymphocytes # (A) 1.5 k/uL (1.0-4.8); Lymphocytes % (A) 13 %; MCH 28.9 pg (25.0-35.0); MCHC 32.9 g/dL (31.0-37.0); MCV 87.8 fL (80.0-100.0); Mean Platelet Volume 7.8; Monocytes # (A) 0.5 k/uL (0-1.0); Monocytes % (A) 5 %; Neutrophils # (A) 9.3 k/uL (1.3-7.7); Neutrophils % (A) 80 %; Platelet Count 296 k/uL (150-450); RBC 4.36 m/uL (3.80-5.40); RDW 14.7 % (11.5-15.5); WBC 11.6 k/uL (3.8-10.6)
[2023-03-05] MEDS: SODIUM CHLORIDE 0.9% 1,000 ML IV SCH (18:46)
[2023-03-05 19:00] LABS: ALT 21 U/L (4-34); AST 26 U/L (14-36); African American GFR (CKD) 89 (>60 ml/min/1.73 sqM); Albumin 3.9 g/dL (3.5-5.0); Alkaline Phosphatase 114 U/L (38-126); Anion Gap 10 mmol/L; Blood Urea Nitrogen 25 mg/dL (7-17); Calcium 9.4 mg/dL (8.4-10.2); Carbon Dioxide 27 mmol/L (22-30); Chloride 103 mmol/L (98-107); Glucose 122 mg/dL (74-99); Non-African American GFR(CKD) 77 (>60 ml/min/1.73 sqM); Potassium 4.3 mmol/L (3.5-5.1); Sodium 140 mmol/L (137-145); Total Bilirubin 0.5 mg/dL (0.2-1.3); Total Protein 6.8 g/dL (6.3-8.2)
[2023-03-05 19:26] LABS: Appearance,Urine Cloudy (Clear); Bilirubin,Urine Negative (Negative); Blood,Urine Small (Negative); Color,Urine Light Yellow; Glucose,Urine (UA) Negative (Negative); Hyaline Casts,Urine 1 /lpf (0-2); Ketones,Urine 1+ (Negative); Leukocyte Esterase,Urine Large (Negative); Mucus,Urine Occasional /hpf; Nitrite,Urine Negative (Negative); PH, Urine 6.5 (5.0-8.0); Protein,Urine Trace (Negative); RBC,Urine 10 /hpf (0-5); Specific Gravity,Urine 1.036 (1.001-1.035); Urobilinogen,Urine <2.0 mg/dL (<2.0); WBC,Urine 112 /hpf (0-5)
[2023-03-05] MEDS: INSULIN ASPART (NovoLOG) 100 UNIT/ML VIAL SQ SCH (23:06)
[2023-03-05] MEDS: MAGNESIUM OXIDE 400 MG TAB PO SCH (23:06)
[2023-03-05 23:07] LABS: Glucose,Whole Blood 118 mg/dL (70-110)
[2023-03-05] MEDS: HEPARIN SODIUM,PORCINE 5,000 UNIT/ML 1 ML VIAL SQ SCH (23:07)
[2023-03-05] MEDS: METOPROLOL TARTRATE 25 MG TAB PO SCH (23:07)
[2023-03-05] MEDS: ASPIRIN 325 MG TAB PO SCH (23:12)
[2023-03-06] MEDS: ACETAMINOPHEN TAB 325 MG TAB PO PRN ×4 (01:15→21:24)
[2023-03-06 06:03] LABS: Glucose,Whole Blood 108 mg/dL (70-110)
[2023-03-06] MEDS: INSULIN ASPART (NovoLOG) 100 UNIT/ML VIAL SQ SCH ×4 (06:22→21:20)
[2023-03-06] MEDS: HEPARIN SODIUM,PORCINE 5,000 UNIT/ML 1 ML VIAL SQ SCH ×3 (08:03→22:49)
[2023-03-06] MEDS: MAGNESIUM OXIDE 400 MG TAB PO SCH ×2 (08:03→21:24)
[2023-03-06] MEDS: ASPIRIN 325 MG TAB PO SCH (08:03)
[2023-03-06] MEDS: SODIUM CHLORIDE 0.9% 1,000 ML IV SCH ×2 (08:08→16:03)
[2023-03-06 09:25] LABS: ALT 21 U/L (4-34); AST 26 U/L (14-36); African American GFR (CKD) >90 (>60 ml/min/1.73 sqM); Albumin 3.8 g/dL (3.5-5.0); Alkaline Phosphatase 107 U/L (38-126); Anion Gap 10 mmol/L; Blood Urea Nitrogen 19 mg/dL (7-17); Calcium 9.4 mg/dL (8.4-10.2); Carbon Dioxide 26 mmol/L (22-30); Chloride 102 mmol/L (98-107); Glucose 130 mg/dL (74-99); Non-African American GFR(CKD) 89 (>60 ml/min/1.73 sqM); Potassium 3.8 mmol/L (3.5-5.1); Sodium 138 mmol/L (137-145); Total Bilirubin 0.4 mg/dL (0.2-1.3); Total Protein 6.4 g/dL (6.3-8.2)
[2023-03-06 09:31] LABS: Basophils % (A) 0 %; Eosinophils # (A) 0.1 k/uL (0-0.7); Eosinophils % (A) 1 %; HCT 37.6 % (34.0-46.0); HGB 12.1 gm/dL (11.4-16.0); Lymphocytes # (A) 1.9 k/uL (1.0-4.8); Lymphocytes % (A) 13 %; MCH 28.9 pg (25.0-35.0); MCHC 32.3 g/dL (31.0-37.0); MCV 89.4 fL (80.0-100.0); Mean Platelet Volume 8.2; Monocytes # (A) 0.6 k/uL (0-1.0); Monocytes % (A) 4 %; Neutrophils # (A) 12.4 k/uL (1.3-7.7); Neutrophils % (A) 81 %; Platelet Count 284 k/uL (150-450); RBC 4.21 m/uL (3.80-5.40); RDW 14.8 % (11.5-15.5); WBC 15.3 k/uL (3.8-10.6)
[2023-03-06] MEDS ORDERED: ALBUTEROL HFA INHALER INHALATION PRN (09:35)
[2023-03-06] MEDS ORDERED: DEXTROSE 50% SYRINGE 50 ML IVP PRN ×2 (09:37)
[2023-03-06] MEDS ORDERED: IPRATROPIUM-ALBUTEROL 3 ML NEB INHALATION PRN (09:38)
[2023-03-06] MEDS ORDERED: FLUoxetine HCL 20 MG CAP PO SCH (09:45)
[2023-03-06] MEDS: VENLAFAXINE HCL ER 37.5 MG CAP PO SCH (11:14)
[2023-03-06] MEDS: VALSARTAN 80 MG TAB PO SCH (11:14)
[2023-03-06] MEDS: PANTOPRAZOLE 40 MG TABLET PO SCH (11:14)
[2023-03-06] MEDS: ESCITALOPRAM 20 MG TAB PO SCH (11:14)
[2023-03-06 11:41] LABS: Glucose,Whole Blood 96 mg/dL (70-110)
[2023-03-06 12:11] VITALS: BMI 44.4
--- NOTE | 2023-03-06 12:23 | P.GSCN ---
History of Present Illness Consult date: 03/06/23 Reason for Consult: Carotid stenosis Requesting physician: Julio Mccoy History of present illness: This is 62-year-old female who was initially brought to [facility] after being found confused at the bank yesterday. She has a past medical history including coronary artery disease, cervical stenosis, COPD, diabetes, angina, hypertension, opiate dependence on Suboxone, hypertension and obesity. Patient is scheduled to have cervical surgery with Dr. Ramírez in March. States that Thursday she felt fine but then yesterday she was confused. She denied any other focal deficits such as difficulties speaking, visual changes, weakness or facial drooping. No previous history of stroke in the past. She does have cardiac history with previous stents and pelvis with Dr. Estes. The patient is alert and oriented 3 currently. She denies any other focal deficits. He denies any chest pain, shortness of breath, abdominal pain, nausea or vomiting. She was diagnosed with a urinary tract infection at [facility]. She had a CT angiogram head and neck done at [facility] which reportedly had approximately 70% stenosis of the origin of the right ICA and high-grade stenosis at the origin of the right ECA. Arthrosclerotic calcification left carotid I furcation associated with less than 50% stenosis. No vertebral artery stenosis identified. Brain reported no acute intracranial hemorrhage or mass effect. Past Medical History Past Medical History: Chest Pain / Angina, COPD, Diabetes Mellitus, GERD/Reflux, Hyperlipidemia, Hypertension, Myocardial Infarction ([place]) Additional Past Medical History / Comment(s): Lower back pain. Last Myocardial Infarction Date:: 12/01/20 History of Any Multi-Drug Resistant Organisms: None Reported Past Surgical History: Back Surgery, Bariatric Surgery, Cholecystectomy, Heart Catheterization With Stent, Hysterectomy, Orthopedic Surgery, Tubal Ligation Additional Past Surgical History / Comment(s): Neck and back surgery X4, bilateral carpal tunnel, rouxen y-gastric bypass, EGD. Past Anesthesia/Blood Transfusion Reactions: No Reported Reaction Date of Last Stent Placement:: 12/01/20 Past Psychological History: Anxiety, Depression Smoking Status: Former smoker Past Alcohol Use History: None Reported, Unable to Obtain Past Drug Use History: Unable to Obtain - Past Family History Mother Family Medical History: Congestive Heart Failure (CHF) Father Family Medical History: Respiratory Disorder Medications and Allergies Home Medications Medication Instructions Recorded Confirmed Type Albuterol Sulfate [Ventolin HFA] 2 puff INHALATION RT-Q4H PRN 12/01/20 03/05/23 History Cholecalciferol (Vitamin D3) 250 mcg PO DAILY 12/01/20 03/05/23 History [Vitamin D3 (5000 Iu)] Magnesium Oxide 400 mg PO BID 12/01/20 03/05/23 History Pantoprazole Sodium [Protonix] 40 mg PO DAILY 12/01/20 03/05/23 History Nitroglycerin Sl Tabs [Nitrostat] 0.4 mg SUBLINGUAL Q5M PRN #20 tab 12/04/20 03/05/23 Rx Potassium Chloride [Klor-Con 10 ER] 10 meq PO DAILY 09/05/21 03/05/23 History ALPRAZolam [Xanax] 0.25 mg PO BID PRN 01/17/22 03/05/23 History Budesonide/Glycopyr/Formoterol 2 puff INHALATION RT-BID 01/17/22 03/05/23 History [Breztri Aerosphere Inhaler] Buprenorphine HCl/Naloxone HCl 1 film SL BID 01/17/22 03/05/23 History [Buprenorphine-Nalox 8-2Mg Film] Cetirizine HCl 10 mg PO DAILY 01/17/22 03/05/23 History Vitamin K 100 Mcg 100 mcg PO DAILY 01/17/22 03/05/23 History Acetaminophen Tab [Tylenol] 650 mg PO Q6HR PRN tab 01/22/22 03/05/23 Rx Aspirin 81 mg PO DAILY #30 tab 01/22/22 03/05/23 Rx Atorvastatin [Lipitor] 40 mg PO DAILY 07/25/22 03/06/23 History Bumetanide [BUMEX] 2 mg PO BID 07/25/22 03/05/23 History Ferrous Sulfate [Feosol] 325 mg PO DAILY 07/25/22 03/05/23 History Sodium Chloride Tab 2 gm PO DAILY 07/25/22 03/05/23 History Valsartan 80 mg PO DAILY 07/25/22 03/05/23 History metFORMIN HCL 500 mg PO BID 07/25/22 03/05/23 History Ipratropium-Albuterol Nebulize 3 ml INHALATION RT-QID PRN 09/09/22 03/05/23 History [Duoneb 0.5 mg-3 mg/3 ml Soln] Simethicone [Gas-X] 125 mg PO AC-TID PRN #20 capsule 09/12/22 03/05/23 Rx Escitalopram [Lexapro] 20 mg PO DAILY 03/05/23 03/06/23 History Fluticasone Nasal [place] [Flonase 1 spray EA NOSTRIL DAILY 03/05/23 03/05/23 History Nasal [place]] Metoprolol Tartrate [Lopressor] 25 mg PO HS 03/05/23 03/05/23 History Metoprolol Tartrate [Lopressor] 50 mg PO DAILY 03/05/23 03/05/23 History Multivitamins, Thera [Multivitamin 1 tab PO DAILY 03/05/23 03/05/23 History (formulary)] Nicotine Polacrilex [Nicotine 2 mg MUCOUS MEM TID PRN 03/05/23 03/05/23 History Lozenge] Tirzepatide [Mounjaro] 7.5 mg SQ WE 03/05/23 03/05/23 History Venlafaxine HCl ER [Effexor Xr] 37.5 mg PO DAILY 03/05/23 03/06/23 History Vitamin B Complex 1 cap PO DAILY 03/05/23 03/05/23 History Zinc Gluconate [Zinc] 50 mg PO DAILY 03/05/23 03/05/23 History predniSONE [Deltasone] See Taper PO DIRECTED 03/05/23 03/06/23 History Allergies Allergy/AdvReac Type Severity Reaction Status Date / Time atorvastatin calcium Allergy See comment Verified 03/06/23 10:05 [From Lipitor] citalopram [From Celexa] Allergy Unknown Verified 03/05/23 21:27 NSAIDS (Non-Steroidal Allergy Unknown Verified 03/05/23 21:27 Anti-Inflamma pregabalin [From Lyrica] Allergy Anaphylaxis Verified 03/05/23 21:27 rosuvastatin calcium Allergy Anaphylaxis Verified 03/05/23 21:27 [From Crestor] duloxetine [From Cymbalta] AdvReac Nausea Verified 03/05/23 21:27 Surgical - Exam Vital Signs Temp Pulse Resp BP Pulse Ox 98.5 F 98 18 161/76 95 03/05/23 17:23 03/05/23 17:23 03/05/23 17:23 03/05/23 17:23 03/05/23 17:23 General appearance: The patient is alert, oriented, appears in no acute distress. HET: Head is normocephalic and atraumatic. Pupils are equal and reactive. Neck: Supple. Right carotid bruit. Heart: Regular. Lungs: Equal expansion, normal respiratory effort. Abdomen: Soft, nontender, nondistended. Extremities: Normal skin color and turgor. Neurological: No focal deficits. Alert and oriented 3. Strength and sensation are grossly intact. Results - Labs 03/06/23 08:35 03/06/23 08:35 Abnormal Lab Results - Last 24 Hours (Table) 03/05/23 03/05/23 03/05/23 Range/Units 18:04 18:04 18:19 WBC 11.6 H (3.8-10.6) k/uL Neutrophils # 9.3 H (1.3-7.7) k/uL BUN 25 H (7-17) mg/dL Glucose 122 H (74-99) mg/dL POC Glucose (mg/dL) (70-110) mg/dL Urine Appearance Cloudy H (Clear) Ur Specific [place] 1.036 H (1.001-1.035) Urine Protein Trace H (Negative) Urine Ketones 1+ H (Negative) Urine Blood Small H (Negative) Ur Leukocyte Esterase Large H (Negative) Urine RBC 10 H (0-5) /hpf Urine WBC 112 H (0-5) /hpf Urine WBC Clumps Rare H (None) /hpf Urine Mucus Occasional H (None) /hpf 03/05/23 Range/Units 23:05 WBC (3.8-10.6) k/uL Neutrophils # (1.3-7.7) k/uL BUN (7-17) mg/dL Glucose (74-99) mg/dL POC Glucose (mg/dL) 118 H (70-110) mg/dL Urine Appearance (Clear) Ur Specific [place] (1.001-1.035) Urine Protein (Negative) Urine Ketones (Negative) Urine Blood (Negative) Ur Leukocyte Esterase (Negative) Urine RBC (0-5) /hpf Urine WBC (0-5) /hpf Urine WBC Clumps (None) /hpf Urine Mucus (None) /hpf Diabetes panel 03/05/23 Range/Units 18:04 Sodium 140 (137-145) mmol/L Potassium 4.3 (3.5-5.1) mmol/L Chloride 103 (98-107) mmol/L Carbon Dioxide 27 (22-30) mmol/L BUN 25 H (7-17) mg/dL Creatinine 0.83 (0.52-1.04) mg/dL Glucose 122 H (74-99) mg/dL Calcium 9.4 (8.4-10.2) mg/dL AST 26 (14-36) U/L ALT 21 (4-34) U/L Alkaline Phosphatase 114 (38-126) U/L Total Protein 6.8 (6.3-8.2) g/dL Albumin 3.9 (3.5-5.0) g/dL Calcium panel 03/05/23 Range/Units 18:04 Calcium 9.4 (8.4-10.2) mg/dL Albumin 3.9 (3.5-5.0) g/dL Pituitary panel 03/05/23 Range/Units 18:04 Sodium 140 (137-145) mmol/L Potassium 4.3 (3.5-5.1) mmol/L Chloride 103 (98-107) mmol/L Carbon Dioxide 27 (22-30) mmol/L BUN 25 H (7-17) mg/dL Creatinine 0.83 (0.52-1.04) mg/dL Glucose 122 H (74-99) mg/dL Calcium 9.4 (8.4-10.2) mg/dL Adrenal panel 03/05/23 Range/Units 18:04 Sodium 140 (137-145) mmol/L Potassium 4.3 (3.5-5.1) mmol/L Chloride 103 (98-107) mmol/L Carbon Dioxide 27 (22-30) mmol/L BUN 25 H (7-17) mg/dL Creatinine 0.83 (0.52-1.04) mg/dL Glucose 122 H (74-99) mg/dL Calcium 9.4 (8.4-10.2) mg/dL Total Bilirubin 0.5 (0.2-1.3) mg/dL AST 26 (14-36) U/L ALT 21 (4-34) U/L Alkaline Phosphatase 114 (38-126) U/L Total Protein 6.8 (6.3-8.2) g/dL Albumin 3.9 (3.5-5.0) g/dL - Imaging Comments: CT angiogram head and neck report reviewed from [facility] Assessment and Plan Assessment: 1. Confusion, altered mental status changes 2. Urinary tract infection 3. Right internal carotid artery stenosis, approximately 70% reported per CT angiogram from outside facility 4. Patient discussed with neurology, plan for outpatient follow-up and further workup 5. History coronary artery disease status post stenting 6. History COPD, oxygen dependent 7. History of opioid dependence on Suboxone 8. Cervical stenosis, surgery planned with Dr. Ramírez 03/25/2023 Plan: CT angiogram head and neck report reviewed from [facility]. Disc made and will be reviewed by Dr. Rudolph. Patient was discussed with neurology, confusion possibly related to underlying UTI as she has no other focal deficits and symptoms improved today. Recommend outpatient follow-up and workup for carotid stenosis. Continue with recommendations from neurology. Thank you for this consultation. The impression and plan of care has been dictated as directed. I performed a history and examination of this patient, discussed the same with the dictator. I agree with the dictator's note ,documented as a scribe. Any additional findings or plans will be noted.
--- NOTE | 2023-03-06 12:40 | P.HPIM ---
History of Present Illness H&P Date: 03/06/23 History of present illness; patient is 62-year-old lady with past medical histor y significant for COPD, diabetes mellitus, hypertension, who was transferred from [facility] facility to get neurology and vascular surgery evaluation. Patient initially presented to [facility] for confusion, patient was found confused in a bank, no complaint of loss of consciousness. No complain of recent fall. There was no noticeable facial droop or weakness of any extremity. Patient was worked up at [facility] and was found to have UTI and bilateral carotid stenosis. Patient was transferred to [facility] Initial lab work done in the ER showed WBC 11.6, hemoglobin 12.6, platelet count 296, sodium 140, potassium 4.3, BUN 25, creatinine 0.83, glucose 122 UA showed large amount of leukocyte esterase, WBCs 112 EKG done in the ER heart rate 95, QRS 101, frequent PVCs, no ST segment elevation, no T-wave inversion Patient admitted to medicine service REVIEW OF SYSTEMS: CONSTITUTIONAL: No fever, no malaise, no fatigue. HEENT: No recent visual problems or hearing problems. Denied any sore throat. CARDIOVASCULAR: No chest pain, orthopnea, PND, no palpitations, no syncope. PULMONARY: No shortness of breath, no cough, no hemoptysis. GASTROINTESTINAL: No diarrhea, no nausea, no vomiting, no abdominal pain. NEUROLOGICAL: No headaches, no weakness, no numbness. HEMATOLOGICAL: Denies any bleeding or petechiae. GENITOURINARY: Denies any burning micturition, frequency, or urgency. MUSCULOSKELETAL/RHEUMATOLOGICAL: Denies any joint pain, swelling, or any muscle pain. ENDOCRINE: Denies any polyuria or polydipsia. The rest of the 14-point review of systems is negative. PHYSICAL EXAMINATION: GENERAL: The patient is alert and oriented x3, not in any acute distress. Well developed, well nourished. HEENT: Pupils are round and equally reacting to light. EOMI. No scleral icterus. No conjunctival pallor. Normocephalic, atraumatic. No pharyngeal erythema. No thyromegaly. CARDIOVASCULAR: S1 and S2 present. No murmurs, rubs, or gallops. PULMONARY: Chest is clear to auscultation, no wheezing or crackles. ABDOMEN: Soft, nontender, nondistended, normoactive bowel sounds. No palpable organomegaly. MUSCULOSKELETAL: No joint swelling or deformity. EXTREMITIES: No cyanosis, clubbing, or pedal edema. NEUROLOGICAL: Gross neurological examination did not reveal any focal deficits. SKIN: No rashes. Assessment and plan Acute infectious encephalopathy Bilateral carotid stenoses UTI -COPD with acute exacerbation -hyperlipidemia -hypertension -Sleep apnea -Hypothyroidism Monitor vital signs Monitor CBC Monitor CMP Continue telemetry monitoring Follow-up on blood cultures Follow-up urine cultures Continue IV Rocephin Continue IV fluids Monitor blood sugar levels, continue sliding scale insulin Consult ID Consult neurology Consult vascular surgery Labs and medication were reviewed.. Continue same treatment. Continue with symptomatic treatment. Resume home medication. Monitor labs and vitals. DVT and GI prophylaxis. Further recommendations as per clinical course of the patient Dictation was produced using [employer] dictation software. please excuse any grammatical, word or spelling errors. Past Medical History Past Medical History: Chest Pain / Angina, COPD, Diabetes Mellitus, GERD/Reflux, Hyperlipidemia, Hypertension, Myocardial Infarction ([place]) Additional Past Medical History / Comment(s): Lower back pain. Last Myocardial Infarction Date:: 12/01/20 History of Any Multi-Drug Resistant Organisms: None Reported Past Surgical History: Back Surgery, Bariatric Surgery, Cholecystectomy, Heart Catheterization With Stent, Hysterectomy, Orthopedic Surgery, Tubal Ligation Additional Past Surgical History / Comment(s): Neck and back surgery X4, bilateral carpal tunnel, rouxen y-gastric bypass, EGD. Past Anesthesia/Blood Transfusion Reactions: No Reported Reaction Date of Last Stent Placement:: 12/01/20 Past Psychological History: Anxiety, Depression Smoking Status: Former smoker Past Alcohol Use History: None Reported, Unable to Obtain Past Drug Use History: Unable to Obtain - Past Family History Mother Family Medical History: Congestive Heart Failure (CHF) Father Family Medical History: Respiratory Disorder Medications and Allergies Home Medications Medication Instructions Recorded Confirmed Type Albuterol Sulfate [Ventolin HFA] 2 puff INHALATION RT-Q4H PRN 12/01/20 03/05/23 History Cholecalciferol (Vitamin D3) 250 mcg PO DAILY 12/01/20 03/05/23 History [Vitamin D3 (5000 Iu)] Magnesium Oxide 400 mg PO BID 12/01/20 03/05/23 History Pantoprazole Sodium [Protonix] 40 mg PO DAILY 12/01/20 03/05/23 History Nitroglycerin Sl Tabs [Nitrostat] 0.4 mg SUBLINGUAL Q5M PRN #20 tab 12/04/20 03/05/23 Rx Potassium Chloride [Klor-Con 10 ER] 10 meq PO DAILY 09/05/21 03/05/23 History ALPRAZolam [Xanax] 0.25 mg PO BID PRN 01/17/22 03/05/23 History Budesonide/Glycopyr/Formoterol 2 puff INHALATION RT-BID 01/17/22 03/05/23 History [Breztri Aerosphere Inhaler] Buprenorphine HCl/Naloxone HCl 1 film SL BID 01/17/22 03/05/23 History [Buprenorphine-Nalox 8-2Mg Film] Cetirizine HCl 10 mg PO DAILY 01/17/22 03/05/23 History Vitamin K 100 Mcg 100 mcg PO DAILY 01/17/22 03/05/23 History Acetaminophen Tab [Tylenol] 650 mg PO Q6HR PRN tab 01/22/22 03/05/23 Rx Aspirin 81 mg PO DAILY #30 tab 01/22/22 03/05/23 Rx Atorvastatin [Lipitor] 40 mg PO DAILY 07/25/22 03/06/23 History Bumetanide [BUMEX] 2 mg PO BID 07/25/22 03/05/23 History Ferrous Sulfate [Feosol] 325 mg PO DAILY 07/25/22 03/05/23 History Sodium Chloride Tab 2 gm PO DAILY 07/25/22 03/05/23 History Valsartan 80 mg PO DAILY 07/25/22 03/05/23 History metFORMIN HCL 500 mg PO BID 07/25/22 03/05/23 History Ipratropium-Albuterol Nebulize 3 ml INHALATION RT-QID PRN 09/09/22 03/05/23 History [Duoneb 0.5 mg-3 mg/3 ml Soln] Simethicone [Gas-X] 125 mg PO AC-TID PRN #20 capsule 09/12/22 03/05/23 Rx Escitalopram [Lexapro] 20 mg PO DAILY 03/05/23 03/06/23 History Fluticasone Nasal [place] [Flonase 1 spray EA NOSTRIL DAILY 03/05/23 03/05/23 History Nasal [place]] Metoprolol Tartrate [Lopressor] 25 mg PO HS 03/05/23 03/05/23 History Metoprolol Tartrate [Lopressor] 50 mg PO DAILY 03/05/23 03/05/23 History Multivitamins, Thera [Multivitamin 1 tab PO DAILY 03/05/23 03/05/23 History (formulary)] Nicotine Polacrilex [Nicotine 2 mg MUCOUS MEM TID PRN 03/05/23 03/05/23 History Lozenge] Tirzepatide [Mounjaro] 7.5 mg SQ WE 03/05/23 03/05/23 History Venlafaxine HCl ER [Effexor Xr] 37.5 mg PO DAILY 03/05/23 03/06/23 History Vitamin B Complex 1 cap PO DAILY 03/05/23 03/05/23 History Zinc Gluconate [Zinc] 50 mg PO DAILY 03/05/23 03/05/23 History predniSONE [Deltasone] See Taper PO DIRECTED 03/05/23 03/06/23 History Allergies Allergy/AdvReac Type Severity Reaction Status Date / Time atorvastatin calcium Allergy See comment Verified 03/06/23 10:05 [From Lipitor] citalopram [From Celexa] Allergy Unknown Verified 03/05/23 21:27 NSAIDS (Non-Steroidal Allergy Unknown Verified 03/05/23 21:27 Anti-Inflamma pregabalin [From Lyrica] Allergy Anaphylaxis Verified 03/05/23 21:27 rosuvastatin calcium Allergy Anaphylaxis Verified 03/05/23 21:27 [From Crestor] duloxetine [From Cymbalta] AdvReac Nausea Verified 03/05/23 21:27 Physical Exam Vitals: Vital Signs Temp Pulse Pulse Resp BP BP Pulse Ox 03/06/23 08:08 98.0 F 92 18 188/86 96 03/06/23 04:19 97.8 F 71 18 156/78 96 03/05/23 23:20 98.0 F 97 18 137/77 93 L 03/05/23 21:40 99 20 153/79 95 03/05/23 20:15 93 18 163/88 95 03/05/23 19:00 75 20 164/63 98 03/05/23 18:32 86 16 151/79 95 03/05/23 17:29 95 20 151/79 93 L 03/05/23 17:23 98.5 F 98 18 161/76 95 Intake and Output 03/05/23 03/06/23 03/06/23 22:59 06:59 14:59 Intake Total 250 Balance 250 Intake: IV 10 Invasive Line 1 10 Oral 240 Other: Voiding Method External Catheter External Catheter # Voids 1 # Bowel Movements 1 Weight 99.79 kg Results CBC & Chem 7: 03/06/23 08:35 03/06/23 08:35 Labs: Abnormal Lab Results - Last 24 Hours (Table) 03/05/23 03/05/23 03/05/23 Range/Units 18:04 18:04 18:19 WBC 11.6 H (3.8-10.6) k/uL Neutrophils # 9.3 H (1.3-7.7) k/uL BUN 25 H (7-17) mg/dL Glucose 122 H (74-99) mg/dL POC Glucose (mg/dL) (70-110) mg/dL Urine Appearance Cloudy H (Clear) Ur Specific [place] 1.036 H (1.001-1.035) Urine Protein Trace H (Negative) Urine Ketones 1+ H (Negative) Urine Blood Small H (Negative) Ur Leukocyte Esterase Large H (Negative) Urine RBC 10 H (0-5) /hpf Urine WBC 112 H (0-5) /hpf Urine WBC Clumps Rare H (None) /hpf Urine Mucus Occasional H (None) /hpf 03/05/23 03/06/23 Range/Units 23:05 08:35 WBC (3.8-10.6) k/uL Neutrophils # (1.3-7.7) k/uL BUN 19 H (7-17) mg/dL Glucose 130 H (74-99) mg/dL POC Glucose (mg/dL) 118 H (70-110) mg/dL Urine Appearance (Clear) Ur Specific [place] (1.001-1.035) Urine Protein (Negative) Urine Ketones (Negative) Urine Blood (Negative) Ur Leukocyte Esterase (Negative) Urine RBC (0-5) /hpf Urine WBC (0-5) /hpf Urine WBC Clumps (None) /hpf Urine Mucus (None) /hpf Thrombosis Risk Factor Assmnt - Choose All That Apply Any of the Below Risk Factors Present?: Yes Each Factor Represents 1 point: Abnormal pulmonary function (COPD), Age 41-60 years Other Risk Factors: No Other congenital or acquired thrombophilia - If yes, enter type in comment: No Thrombosis Risk Factor Assessment Total Risk Factor Score: 2 Thrombosis Risk Factor Assessment Level: Low Risk
--- NOTE | 2023-03-06 13:09 | P.CNNES ---
History of Present Illness Consult date: 03/06/23 Requesting physician: Julio Mccoy Reason for Consult: confusion, carotid stenosis History of Present Illness: Patient is a 62-year-old female with history of hypertension, diabetes, COPD, CHF, transferred by ambulance from [facility], arrived yesterday at 5:22 PM for episode of confusion. Patient states that yesterday she was confused part of the day. 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 She woke up yesterday at 8 AM and was late almost an hour. She arrived at work at 8:30 AM. Patient says that she was planning to give medication to the resident but she became confused, started putting a quarter in the medication cabinet lock instead of the keys. The resident's started complaining that patient did not give her medication although patient believes that she did give medication to her. The resident called patient's supervisor mill and when they came over, asked questions and patient was confused, as she had trouble with the day, her birthday, did not know grandson, who she knows very well. Patient's son took her to [facility]. Patient denied any slu rred speech, facial droop, focal numbness tingling or weakness. As per records from [facility] it was reported that patient was found at her local been confused. Her daughter had been initially called by the [place] [facility] [place] that patient works at each morning for a couple of hours. They reported that she was confused and giving an example in which patient was trying to open a locked to the point instead of a duvall. [facility] then called patient's daughter and son. Son later called patient who told him that she couldn't start her car and that she was at home. Son went to her home but she was not there and eventually discovered her confused at a local bank. Patient reported posterior neck pain which is chronic but denied any headache. Son mentioned that patient has been having severe headaches for quite a while which she believed to be caused by her neck. She had an appointment later that day for cardiac clearance for an upcoming neck surgery. Patient denies any shortness of breath chest pain abdomen pain vomiting or diarrhea. Vital signs on arrival blood pressure 161/76, pulse rate 98 temperature 98.5. Blood test shows WBC 11.6 hemoglobin 12.6, normal platelets, electrolytes, BU and 25 creatinine 0.83. Hepatic panel is normal, UA shows large amount of leukocyte Estrace, 1 and 12 WBCs and rare WBC clumps. EKG shows sinus rhythm with frequent ventricular premature complexes. Patient had an MRI of the cervical spine performed outpatient on 02/25/2023, which revealed motion limited exam of the cervical spine. There is no evidence for significant spinal canal s tenosis. The neural foramen do not demonstrate significant neural foraminal stenosis given limitation of the exam. Motion limited exam of the lumbar spine. There is hardware in place. No evidence for significant spinal canal or neural foraminal stenosis. Home medications include vitamin D, Protonix, potassium, Suboxone, Xanax 0.25 mg twice a day when necessary, aspirin 81 mg, valsartan, Bumex, Lipitor 40 mg, metformin, iron, metoprolol, Effexor XR 37.5 mg daily, Lexapro 20 mg, prednisone 20 mg taper, metoprolol and Mounjaro. Patient says that she had a similar episode happened about 2 years ago, when she was diagnosed with CAD and underwent cardiac stenting. Records from [facility] includes Chest x-ray revealed no acute cardiopulmonary process. CT head revealed no acute intracranial hemorrhage or mass effect. EKG shows sinus tachycardia UA performed at another hospital showed 2+ leukocytes, 2+ ketones, 10-50 WBC and large amount of bacteria. Chem- 20 was normal. TSH 2.90, troponin negative, PT/PTT normal, CRP 0.5, magnesium 2.1, we ABG with pH 7.37, pCO2 49, HCO3 28.9. CBC with WBC 13.2 with normal hemoglobin. Patient was started on ceftriaxone 1 g. Patient has history of diabetes for 10-20 years. Patient states that she underwent gastric bypass surgery around 2004, and she lost weight, and she was off medication. Just this year she has started back on medication for diabetes. She also has hypertension, denies hyperlipidemia. She smoked 1 pack per day for 42 years, quit 2 years ago. Review of Systems Constitutional: Denies chills, Denies fever Eyes: denies blurred vision, denies diplopia, denies pain Ears: deny: decreased hearing, ear discharge (Ear plugs often, feels popping) Ears, nose, mouth and throat: Reports headache (Has been getting headache. She drinks a pot and a half of coffee per day.), Denies sore throat Cardiovascular: Denies chest pain, Denies shortness of breath Respiratory: Denies cough, Denies excessive sputum Gastrointestinal: Denies abdominal pain, Denies diarrhea, Denies nausea, Denies vomiting Genitourinary: Denies dysuria, Denies flank pain, Denies hematuria, Denies urge incontinence, Denies urgency Musculoskeletal: Reports low back pain, Reports neck pain, Denies myalgias Integumentary: Denies pruritus, Denies rash Neurological: Reports as per HPI Psychiatric: Reports anxiety, Reports depression, Reports insomnia Endocrine: Denies fatigue, Denies weight change Hematologic/Lymphatic: Reports easy bruising, Denies easy bleeding Past Medical History Past Medical History: Chest Pain / Angina, COPD, Diabetes Mellitus, GERD/Reflux, Hyperlipidemia, Hypertension, Myocardial Infarction ([place]) Additional Past Medical History / Comment(s): Lower back pain. Last Myocardial Infarction Date:: 12/01/20 History of Any Multi-Drug Resistant Organisms: None Reported Past Surgical History: Back Surgery, Bariatric Surgery, Cholecystectomy, Heart Catheterization With Stent, Hysterectomy, Orthopedic Surgery, Tubal Ligation Additional Past Surgical History / Comment(s): Neck and back surgery X4, bilateral carpal tunnel, rouxen y-gastric bypass, EGD. Past Anesthesia/Blood Transfusion Reactions: No Reported Reaction Date of Last Stent Placement:: 12/01/20 Past Psychological History: Anxiety, Depression Smoking Status: Former smoker Past Alcohol Use History: None Reported, Unable to Obtain Past Drug Use History: Unable to Obtain - Past Family History Mother Family Medical History: Congestive Heart Failure (CHF) Father Family Medical History: Respiratory Disorder Medications and Allergies Home Medications Medication Instructions Recorded Confirmed Type Albuterol Sulfate [Ventolin HFA] 2 puff INHALATION RT-Q4H PRN 12/01/20 03/05/23 History Cholecalciferol (Vitamin D3) 250 mcg PO DAILY 12/01/20 03/05/23 History [Vitamin D3 (5000 Iu)] Magnesium Oxide 400 mg PO BID 12/01/20 03/05/23 History Pantoprazole Sodium [Protonix] 40 mg PO DAILY 12/01/20 03/05/23 History Nitroglycerin Sl Tabs [Nitrostat] 0.4 mg SUBLINGUAL Q5M PRN #20 tab 12/04/20 03/05/23 Rx Potassium Chloride [Klor-Con 10 ER] 10 meq PO DAILY 09/05/21 03/05/23 History ALPRAZolam [Xanax] 0.25 mg PO BID PRN 01/17/22 03/05/23 History Budesonide/Glycopyr/Formoterol 2 puff INHALATION RT-BID 01/17/22 03/05/23 History [Breztri Aerosphere Inhaler] Buprenorphine HCl/Naloxone HCl 1 film SL BID 01/17/22 03/05/23 History [Buprenorphine-Nalox 8-2Mg Film] Cetirizine HCl 10 mg PO DAILY 01/17/22 03/05/23 History Vitamin K 100 Mcg 100 mcg PO DAILY 01/17/22 03/05/23 History Acetaminophen Tab [Tylenol] 650 mg PO Q6HR PRN tab 01/22/22 03/05/23 Rx Aspirin 81 mg PO DAILY #30 tab 01/22/22 03/05/23 Rx Atorvastatin [Lipitor] 40 mg PO DAILY 07/25/22 03/06/23 History Bumetanide [BUMEX] 2 mg PO BID 07/25/22 03/05/23 History Ferrous Sulfate [Feosol] 325 mg PO DAILY 07/25/22 03/05/23 History Sodium Chloride Tab 2 gm PO DAILY 07/25/22 03/05/23 History Valsartan 80 mg PO DAILY 07/25/22 03/05/23 History metFORMIN HCL 500 mg PO BID 07/25/22 03/05/23 History Ipratropium-Albuterol Nebulize 3 ml INHALATION RT-QID PRN 09/09/22 03/05/23 History [Duoneb 0.5 mg-3 mg/3 ml Soln] Simethicone [Gas-X] 125 mg PO AC-TID PRN #20 capsule 09/12/22 03/05/23 Rx Escitalopram [Lexapro] 20 mg PO DAILY 03/05/23 03/06/23 History Fluticasone Nasal [place] [Flonase 1 spray EA NOSTRIL DAILY 03/05/23 03/05/23 History Nasal [place]] Metoprolol Tartrate [Lopressor] 25 mg PO HS 03/05/23 03/05/23 History Metoprolol Tartrate [Lopressor] 50 mg PO DAILY 03/05/23 03/05/23 History Multivitamins, Thera [Multivitamin 1 tab PO DAILY 03/05/23 03/05/23 History (formulary)] Nicotine Polacrilex [Nicotine 2 mg MUCOUS MEM TID PRN 03/05/23 03/05/23 History Lozenge] Tirzepatide [Mounjaro] 7.5 mg SQ WE 03/05/23 03/05/23 History Venlafaxine HCl ER [Effexor Xr] 37.5 mg PO DAILY 03/05/23 03/06/23 History Vitamin B Complex 1 cap PO DAILY 03/05/23 03/05/23 History Zinc Gluconate [Zinc] 50 mg PO DAILY 03/05/23 03/05/23 History predniSONE [Deltasone] See Taper PO DIRECTED 03/05/23 03/06/23 History Allergies Allergy/AdvReac Type Severity Reaction Status Date / Time atorvastatin calcium Allergy See comment Verified 03/06/23 10:05 [From Lipitor] citalopram [From Celexa] Allergy Unknown Verified 03/05/23 21:27 NSAIDS (Non-Steroidal Allergy Unknown Verified 03/05/23 21:27 Anti-Inflamma pregabalin [From Lyrica] Allergy Anaphylaxis Verified 03/05/23 21:27 rosuvastatin calcium Allergy Anaphylaxis Verified 03/05/23 21:27 [From Crestor] duloxetine [From Cymbalta] AdvReac Nausea Verified 03/05/23 21:27 Physical Examination - Vital Signs Vital Signs: Vital Signs Temp Pulse Pulse Resp BP BP Pulse Ox 03/06/23 08:08 98.0 F 92 18 188/86 96 03/06/23 04:19 97.8 F 71 18 156/78 96 03/05/23 23:20 98.0 F 97 18 137/77 93 L 03/05/23 21:40 99 20 153/79 95 03/05/23 20:15 93 18 163/88 95 03/05/23 19:00 75 20 164/63 98 03/05/23 18:32 86 16 151/79 95 03/05/23 17:29 95 20 151/79 93 L 03/05/23 17:23 98.5 F 98 18 161/76 95 Intake and Output 03/05/23 03/06/23 03/06/23 22:59 06:59 14:59 Intake Total 250 Balance 250 Intake: IV 10 Invasive Line 1 10 Oral 240 Other: Voiding Method External Catheter External Catheter Toilet # Voids 1 # Bowel Movements 1 Weight 99.79 kg Patient is a late middle aged female, in no acute distress. Patient is alert awake oriented to time place and person. Speech and language functions are normal. Patient can name and repeat very well. No aphasia or dysarthria. Attention, concentration and fund of knowledge is adequate. On cranial nerve examination, pupils are equal, round and reacting to light, visual witt are full on confrontation, with no neglect on double simultaneous stimulation. Extraocular muscles are intact with no nystagmus. Face is symmetric, tongue protrudes to the midline. Palatal elevation and sensation normal, hearing and shoulder shrug normal, facial sensation normal. On muscle strength testing, there is no pronator drift and the strength is normal in arms and legs distally and proximally. Deep tendon reflexes are symmetric 1 at the biceps, 1 brachioradialis, 2 at the knees, 1 ankles and plantars downgoing bilaterally. Sensory to touch is equal with no neglect on double simultaneous stimulation. Cerebellar function showed no ataxia for [id number] testing. No dysdiadochokinesia. No ataxia for [id number] testing on either side. Tone and bulk of muscles normal. Gait deferred.. On general examination, there is no carotid bruit or murmur, S1-S2 audible. Chest is clear on consultation. Abdomen is soft nontender. No organomegaly, bowel sounds present. Peripheral pulses are present. No edema. Results - Laboratory Findings CBC and BMP: 03/06/23 08:35 03/06/23 08:35 Abnormal Lab Findings: Abnormal Labs 03/05/23 03/05/23 03/05/23 18:04 18:04 18:19 WBC 11.6 H Neutrophils # 9.3 H BUN 25 H Glucose 122 H POC Glucose (mg/dL) Urine Appearance Cloudy H Ur Specific [place] 1.036 H Urine Protein Trace H Urine Ketones 1+ H Urine Blood Small H Ur Leukocyte Esterase Large H Urine RBC 10 H Urine WBC 112 H Urine WBC Clumps Rare H Urine Mucus Occasional H 03/05/23 03/06/23 03/06/23 23:05 08:35 08:35 WBC 15.3 H Neutrophils # 12.4 H BUN 19 H Glucose 130 H POC Glucose (mg/dL) 118 H Urine Appearance Ur Specific [place] Urine Protein Urine Ketones Urine Blood Ur Leukocyte Esterase Urine RBC Urine WBC Urine WBC Clumps Urine Mucus Assessment and Plan Assessment: * Altered mental status, likely due to mild delirium related to UTI. Rule out TIA. Patient had no lateralizing symptoms. * Acute UTI * Right ICA stenosis at its origin 70%. * Hypertension * Type 2 diabetes * Obesity, status post bypass surgery * Anxiety disorder/depression * History of opioid dependence * Obstructive sleep apnea * Coronary artery disease * X tobacco use Plan: * Patient had a transient episode of mental confusion, unclear etiology. Un certain if due to transient metabolic encephalopathy from UTI, versus a possible TIA. Patient had no lateralizing symptoms at that time however. * CTA neck demonstrates extensive calcification at the right carotid bifurcation that may be associated with approximately 70% stenosis of the origin of the right ICA and high-grade stenosis at the region of the right ECA. Atherosclerotic calcification of the left carotid bifurcation associated with less than 50% stenosis. No vertebral artery stenosis. * CTA head demonstrates atherosclerotic desiccation of the vertebral and carotid arteries at the skull base. No occlusion or high-grade stenosis involving the proximal anterior, middle or posterior cerebral arteries or the basilar artery. * Vascular surgery has been consulted. They are recommending patient follow-up in the office outpatient. * We will place patient on dual antiplatelet medication including Plavix 75 mg and aspirin 81 mg. * Urine drug screen * Hemoglobin A1c. * Patient's last lipid panel from 01/18/2022, was well controlled with c holesterol 91, LDL 26, HDL 47 and triglycerides 84. Continue Lipitor 40 mg daily. * Patient currently on ceftriaxone for UTI. * Neurology will follow. Thank you for the consult. Time with Patient: Greater than 30
[2023-03-06] MEDS: BUMETANIDE 1 MG TAB PO SCH ×2 (13:26→17:25)
[2023-03-06] MEDS: CLOPIDOGREL 75 MG TAB PO SCH (13:27)
[2023-03-06] MEDS: IPRATROPIUM 0.5 MG/2.5 ML NEBU INHALATION SCH ×2 (16:36→20:33)
[2023-03-06 16:52] LABS: Glucose,Whole Blood 125 mg/dL (70-110)
[2023-03-06 19:30] LABS: Glucose,Whole Blood 115 mg/dL (70-110)
[2023-03-06] MEDS: SYMBICORT 160-4.5 MCG INHALER INHALATION SCH (20:33)
[2023-03-06 20:51] LABS: Urine Alcohol Negative (Negative); Urine Barbiturate Negative (Negative); Urine Cocaine Negative (Negative); Urine Methadone Negative (Negative); Urine Opiates Negative (Negative); Urine Phencyclidine Negative (Negative)
[2023-03-06] MEDS: METOPROLOL TARTRATE 25 MG TAB PO SCH (21:24)
[2023-03-06] MEDS: ATORVASTATIN 40 MG TAB PO SCH (21:24)
[2023-03-06] MEDS: ALPRAZolam 0.25 MG TAB PO PRN (22:49)
--- NOTE | 2023-03-06 22:59 | P.CONS ---
History of Present Illness - Reason for Consult Consult date: 03/06/23 Urinary tract infection Requesting physician: Reagan Cali - Chief Complaint Mental status changes x one day - History of Present Illness Patient is a 62-year-old female with a past medical history significant for diabetes mellitus hypertension hyperlipidemia [place] COPD patient presenting to the hospital as a transfer from [facility] for evaluation of confusion as a patient noncompliant and more confused than her baseline patient denies having any headache or URI symptoms no chest pain shortness of breath or cough no nausea no vomiting no abdominal pain or any diarrhea patient on presentation to the hospital was afebrile and no fever has been recorded subsequently patient did have a white count of 11.3 which is up to 15.3 today with a left shift creatinine was normal liver enzymes are normal she did have a positive UA with large leukocyte esterase more than 112 WBC urine toxin was negative patient did have urinary symptoms of burning and some frequency but no suprapubic or flank pain some nausea but no vomiting patient was started on Rocephin infectious disease was consulted for further management of antibiotic therapy Review of Systems Positive point and negatives has been mentioned in the HPI, complete review of systems was performed and all other systems are negative Past Medical History Past Medical History: Chest Pain / Angina, COPD, Diabetes Mellitus, GERD/Reflux, Hyperlipidemia, Hypertension, Myocardial Infarction ([place]) Additional Past Medical History / Comment(s): Lower back pain. Last Myocardial Infarction Date:: 12/01/20 History of Any Multi-Drug Resistant Organisms: None Reported Past Surgical History: Back Surgery, Bariatric Surgery, Cholecystectomy, Heart Catheterization With Stent, Hysterectomy, Orthopedic Surgery, Tubal Ligation Additional Past Surgical History / Comment(s): Neck and back surgery X4, bilateral carpal tunnel, rouxen y-gastric bypass, EGD. Past Anesthesia/Blood Transfusion Reactions: No Reported Reaction Date of Last Stent Placement:: 12/01/20 Past Psychological History: Anxiety, Depression Smoking Status: Former smoker Past Alcohol Use History: None Reported, Unable to Obtain Past Drug Use History: Unable to Obtain - Past Family History Mother Family Medical History: Congestive Heart Failure (CHF) Father Family Medical History: Respiratory Disorder Medications and Allergies Home Medications Medication Instructions Recorded Confirmed Type Albuterol Sulfate [Ventolin HFA] 2 puff INHALATION RT-Q4H PRN 12/01/20 03/05/23 History Cholecalciferol (Vitamin D3) 250 mcg PO DAILY 12/01/20 03/05/23 History [Vitamin D3 (5000 Iu)] Magnesium Oxide 400 mg PO BID 12/01/20 03/05/23 History Pantoprazole Sodium [Protonix] 40 mg PO DAILY 12/01/20 03/05/23 History Nitroglycerin Sl Tabs [Nitrostat] 0.4 mg SUBLINGUAL Q5M PRN #20 tab 12/04/20 03/05/23 Rx Potassium Chloride [Klor-Con 10 ER] 10 meq PO DAILY 09/05/21 03/05/23 History ALPRAZolam [Xanax] 0.25 mg PO BID PRN 01/17/22 03/05/23 History Budesonide/Glycopyr/Formoterol 2 puff INHALATION RT-BID 01/17/22 03/05/23 History [Breztri Aerosphere Inhaler] Buprenorphine HCl/Naloxone HCl 1 film SL BID 01/17/22 03/05/23 History [Buprenorphine-Nalox 8-2Mg Film] Cetirizine HCl 10 mg PO DAILY 01/17/22 03/05/23 History Vitamin K 100 Mcg 100 mcg PO DAILY 01/17/22 03/05/23 History Acetaminophen Tab [Tylenol] 650 mg PO Q6HR PRN tab 01/22/22 03/05/23 Rx Aspirin 81 mg PO DAILY #30 tab 01/22/22 03/05/23 Rx Atorvastatin [Lipitor] 40 mg PO DAILY 07/25/22 03/06/23 History Bumetanide [BUMEX] 2 mg PO BID 07/25/22 03/05/23 History Ferrous Sulfate [Feosol] 325 mg PO DAILY 07/25/22 03/05/23 History Sodium Chloride Tab 2 gm PO DAILY 07/25/22 03/05/23 History Valsartan 80 mg PO DAILY 07/25/22 03/05/23 History metFORMIN HCL 500 mg PO BID 07/25/22 03/05/23 History Ipratropium-Albuterol Nebulize 3 ml INHALATION RT-QID PRN 09/09/22 03/05/23 History [Duoneb 0.5 mg-3 mg/3 ml Soln] Simethicone [Gas-X] 125 mg PO AC-TID PRN #20 capsule 09/12/22 03/05/23 Rx Escitalopram [Lexapro] 20 mg PO DAILY 03/05/23 03/06/23 History Fluticasone Nasal [place] [Flonase 1 spray EA NOSTRIL DAILY 03/05/23 03/05/23 History Nasal [place]] Metoprolol Tartrate [Lopressor] 25 mg PO HS 03/05/23 03/05/23 History Metoprolol Tartrate [Lopressor] 50 mg PO DAILY 03/05/23 03/05/23 History Multivitamins, Thera [Multivitamin 1 tab PO DAILY 03/05/23 03/05/23 History (formulary)] Nicotine Polacrilex [Nicotine 2 mg MUCOUS MEM TID PRN 03/05/23 03/05/23 History Lozenge] Tirzepatide [Mounjaro] 7.5 mg SQ WE 03/05/23 03/05/23 History Venlafaxine HCl ER [Effexor Xr] 37.5 mg PO DAILY 03/05/23 03/06/23 History Vitamin B Complex 1 cap PO DAILY 03/05/23 03/05/23 History Zinc Gluconate [Zinc] 50 mg PO DAILY 03/05/23 03/05/23 History predniSONE [Deltasone] See Taper PO DIRECTED 03/05/23 03/06/23 History Allergies Allergy/AdvReac Type Severity Reaction Status Date / Time atorvastatin calcium Allergy See comment Verified 03/06/23 10:05 [From Lipitor] citalopram [From Celexa] Allergy Unknown Verified 03/05/23 21:27 NSAIDS (Non-Steroidal Allergy Unknown Verified 03/05/23 21:27 Anti-Inflamma pregabalin [From Lyrica] Allergy Anaphylaxis Verified 03/05/23 21:27 rosuvastatin calcium Allergy Anaphylaxis Verified 03/05/23 21:27 [From Crestor] duloxetine [From Cymbalta] AdvReac Nausea Verified 03/05/23 21:27 Physical Exam Vitals: Vital Signs Temp Pulse Pulse Resp BP BP Pulse Ox 03/06/23 08:08 98.0 F 92 18 188/86 96 03/06/23 04:19 97.8 F 71 18 156/78 96 03/05/23 23:20 98.0 F 97 18 137/77 93 L 03/05/23 21:40 99 20 153/79 95 03/05/23 20:15 93 18 163/88 95 03/05/23 19:00 75 20 164/63 98 03/05/23 18:32 86 16 151/79 95 03/05/23 17:29 95 20 151/79 93 L 03/05/23 17:23 98.5 F 98 18 161/76 95 Intake and Output 03/05/23 03/06/23 03/06/23 22:59 06:59 14:59 Intake Total 250 Balance 250 Intake: IV 10 Invasive Line 1 10 Oral 240 Other: Voiding Method External Catheter External Catheter Toilet # Voids 1 # Bowel Movements 1 Weight 99.79 kg GENERAL DESCRIPTION: Middle-aged female lying in bed, no distress. No tachypnea or accessory muscle of respiration use. HEENT: Shows Pallor , no scleral icterus. Oral mucous membrane is dry. No pharyngeal erythema or thrush NECK: Trachea central, no thyromegaly. LUNGS: Unlabored breathing. Clear to auscultation anteriorly. No wheeze or crackle. HEART: S1, S2, regular rate and rhythm. No loud murmur ABDOMEN: Soft, no tenderness , guarding or rigidity, no organomegaly EXTREMITIES: No edema of feet. SKIN: No rash, no masses palpable. NEUROLOGICAL: The patient is awake, alert, oriented x3, mood and affect normal. Results CBC & Chem 7: 03/06/23 08:35 03/06/23 08:35 Labs: Abnormal Lab Results - Last 24 Hours (Table) 03/05/23 03/05/23 03/05/23 Range/Units 18:04 18:04 18:19 WBC 11.6 H (3.8-10.6) k/uL Neutrophils # 9.3 H (1.3-7.7) k/uL BUN 25 H (7-17) mg/dL Glucose 122 H (74-99) mg/dL POC Glucose (mg/dL) (70-110) mg/dL Urine Appearance Cloudy H (Clear) Ur Specific [place] 1.036 H (1.001-1.035) Urine Protein Trace H (Negative) Urine Ketones 1+ H (Negative) Urine Blood Small H (Negative) Ur Leukocyte Esterase Large H (Negative) Urine RBC 10 H (0-5) /hpf Urine WBC 112 H (0-5) /hpf Urine WBC Clumps Rare H (None) /hpf Urine Mucus Occasional H (None) /hpf 03/05/23 03/06/23 03/06/23 Range/Units 23:05 08:35 08:35 WBC 15.3 H (3.8-10.6) k/uL Neutrophils # 12.4 H (1.3-7.7) k/uL BUN 19 H (7-17) mg/dL Glucose 130 H (74-99) mg/dL POC Glucose (mg/dL) 118 H (70-110) mg/dL Urine Appearance (Clear) Ur Specific [place] (1.001-1.035) Urine Protein (Negative) Urine Ketones (Negative) Urine Blood (Negative) Ur Leukocyte Esterase (Negative) Urine RBC (0-5) /hpf Urine WBC (0-5) /hpf Urine WBC Clumps (None) /hpf Urine Mucus (None) /hpf Assessment and Plan (1) UTI (urinary tract infection) Current Visit: Yes Status: Acute Code(s): N39.0 - URINARY TRACT INFECTION, SITE NOT SPECIFIED SNOMED Code(s): 27859166 Plan: 1patient presented to hospital with mental status changes in this patient who did have a positive UA urinary symptom likely concerning for symptomatic urinary tract infection likely from enteric gram-negative pathogen. 2we will keep the patient on Rocephin 2 g daily while waiting for the culture to finalize We will follow on clinical condition and cultures to further adjust medication if needed Thank you for this consultation we will follow the patient along with you Dictation was produced using [employer] dictation software. please excuse any grammatical, word or spelling errors. Time with Patient: Greater than 30
[2023-03-07] MEDS: ACETAMINOPHEN TAB 325 MG TAB PO PRN ×3 (03:24→21:19)
[2023-03-07 06:05] LABS: Glucose,Whole Blood 132 mg/dL (70-110)
[2023-03-07] MEDS: INSULIN ASPART (NovoLOG) 100 UNIT/ML VIAL SQ SCH ×4 (06:11→21:08)
[2023-03-07] MEDS: FERROUS SULFATE 325 MG TAB PO SCH (07:37)
[2023-03-07] MEDS: CLOPIDOGREL 75 MG TAB PO SCH (07:37)
[2023-03-07] MEDS: ASPIRIN 81 MG PO SCH (07:37)
[2023-03-07] MEDS: BUMETANIDE 1 MG TAB PO SCH ×2 (07:37→17:11)
[2023-03-07] MEDS: LORATADINE 10 MG TAB PO SCH (07:37)
[2023-03-07] MEDS: PANTOPRAZOLE 40 MG TABLET PO SCH (07:38)
[2023-03-07] MEDS: VALSARTAN 80 MG TAB PO SCH (07:38)
[2023-03-07] MEDS: VENLAFAXINE HCL ER 37.5 MG CAP PO SCH (07:38)
[2023-03-07] MEDS: SODIUM CHLORIDE 0.9% 1,000 ML IV SCH ×2 (07:38→23:31)
[2023-03-07] MEDS: HEPARIN SODIUM,PORCINE 5,000 UNIT/ML 1 ML VIAL SQ SCH ×3 (07:50→23:28)
[2023-03-07] MEDS: ESCITALOPRAM 20 MG TAB PO SCH (07:51)
[2023-03-07] MEDS: MAGNESIUM OXIDE 400 MG TAB PO SCH ×2 (07:51→21:19)
[2023-03-07] MEDS ORDERED: ASPIRIN 81 MG PO SCH (09:00)
[2023-03-07] MEDS: SYMBICORT 160-4.5 MCG INHALER INHALATION SCH ×2 (09:45→21:09)
[2023-03-07] MEDS: IPRATROPIUM 0.5 MG/2.5 ML NEBU INHALATION SCH ×4 (09:46→21:09)
[2023-03-07 11:24] LABS: Glucose,Whole Blood 94 mg/dL (70-110)
--- NOTE | 2023-03-07 13:06 | P.PN ---
Subjective Progress Note Date: 03/07/23 Principal diagnosis: Urinary tract infection Patient is a 62-year-old female with a past medical history significant for diabetes mellitus hypertension hyperlipidemia MD COPD patient presenting to the hospital as a transfer from [facility] for evaluation of confusion, patient did have some urine symptom positive UA likely source of her confusion. On today's evaluation that is 03/07/2023, the patient denies any fever or any chills, the patient is breathing comfortably on room air , the patient denies chest pain, shortness of breath and no significant cough, patient denies abdominal pain, no nausea/vomiting or diarrhea. Patient did have white count of 15.3 and a creatinine 0.4 as of yesterday no labs available for today and cultures are pending Objective - Vital Signs Vital signs: Vital Signs Temp 98.1 F 03/07/23 12:07 Pulse 105 H 03/07/23 12:07 Resp 18 03/07/23 12:07 BP 122/76 03/07/23 12:07 Pulse Ox 96 03/07/23 12:07 FiO2 Intake & Output 03/06/23 03/07/23 03/07/23 18:59 06:59 18:59 Intake Total 572 10 320 Output Total 250 300 Balance 322 10 20 Weight 99.79 kg Intake: IV 20 10 10 Invasive Line 1 20 10 10 Intake, IV Titration 90 70 Amount Sodium Chloride 0.9% 1, 40 20 000 ml @ 75 mls/hr IV . [id number] [facility] Rx#:[id number] cefTRIAXone 2 gm In 50 50 Sodium Chloride 0.9% 50 ml @ 100 mls/hr IVPB Q24HR [facility] Rx#:[id number] Oral 462 240 Output: Urine 250 300 Other: Voiding Method Toilet Toilet Toilet # Voids 3 2 1 # Bowel Movements 1 - Exam GENERAL DESCRIPTION: Middle-aged female lying in bed in no distress RESPIRATORY SYSTEM: Unlabored breathing , decreased breath sounds at bases HEART: S1 S2 regular rate and rhythm , ABDOMEN: Soft , no tenderness EXTREMITIES: No edema feet - Labs CBC & Chem 7: 03/06/23 08:35 03/06/23 08:35 Labs: Abnormal Lab Results - Last 24 Hours (Table) 03/06/23 03/06/23 03/06/23 Range/Units 08:35 16:51 19:29 POC Glucose (mg/dL) 125 H 115 H (70-110) mg/dL Hemoglobin A1c 6.8 H (<=6.0) % 03/07/23 Range/Units 06:04 POC Glucose (mg/dL) 132 H (70-110) mg/dL Hemoglobin A1c (<=6.0) % Microbiology - Last 24 Hours (Table) 03/05/23 18:19 Blood Culture - Preliminary Blood 03/05/23 18:08 Blood Culture - Preliminary Blood Assessment and Plan (1) UTI (urinary tract infection) Current Visit: Yes Status: Acute Code(s): N39.0 - URINARY TRACT INFECTION, SITE NOT SPECIFIED SNOMED Code(s): 53804495 Plan: 1patient presented to hospital with mental status changes in this patient who did have a positive UA urinary symptom likely concerning for symptomatic urinary tract infection likely from enteric gram-negative pathogen. 2we will keep the patient on Rocephin 2 g daily while waiting for the culture to finalize, We will repeat her CBC with a.m. lab patient has been advised to stay in the hospital till the cultures are finalized and white count normalized Dictation was produced using [employer] dictation software. please excuse any gram matical, word or spelling errors. Time with Patient: Less than 30
--- NOTE | 2023-03-07 13:37 | P.PN ---
Subjective Progress Note Date: 03/07/23 patient is 62-year-old lady with past medical history significant for COPD, diabetes mellitus, hypertension, who was transferred from [facility] facility to get neurology and vascular surgery evaluation. Patient initially presented to [facility] for confusion, patient was found confused in a bank, no complaint of loss of consciousness. No complain of recent fall. There was no noticeable facial droop or weakness of any extremity. Patient was worked up at [facility] and was found to have UTI and bilateral carotid stenosis. Patient was transferred to [facility] Initial lab work done in the ER showed WBC 11.6, hemoglobin 12.6, platelet count 296, sodium 140, potassium 4.3, BUN 25, creatinine 0.83, glucose 122 UA showed large amount of leukocyte esterase, WBCs 112 EKG done in the ER heart rate 95, QRS 101, frequent PVCs, no ST segment elevation, no T-wave inversion Patient admitted to medicine service 03/07. Patient seen and examined. States she feels much better. Denies any fever or chills. Swelling of legs is improved REVIEW OF SYSTEMS: CONSTITUTIONAL: No fever, no malaise,. CARDIOVASCULAR: No chest pain, no palpitations, no syncope. PULMONARY: No shortness of breath, no cough, GASTROINTESTINAL: No diarrhea, no nausea, no vomiting, no abdominal pain. NEUROLOGICAL: No headaches, no weakness, PHYSICAL EXAMINATION: GENERAL: The patient is alert and oriented x3, not in any acute distress. Well developed, well nourished. HEENT: Pupils are round and equally reacting to light. EOMI. No scleral icterus. No conjunctival pallor. Normocephalic, atraumatic. No pharyngeal erythema. No thyromegaly. CARDIOVASCULAR: S1 and S2 present. No murmurs, rubs, or gallops. PULMONARY: Chest is clear to auscultation, no wheezing or crackles. ABDOMEN: Soft, nontender, nondistended, normoactive bowel sounds. No palpable organomegaly. MUSCULOSKELETAL: No joint swelling or deformity. EXTREMITIES: No cyanosis, clubbing, or pedal edema. NEUROLOGICAL: Gross neurological examination did not reveal any focal deficits. SKIN: No rashes. Assessment and plan Acute infectious encephalopathy Bilateral carotid stenoses UTI -COPD with acute exacerbation -hyperlipidemia -hypertension -Sleep apnea -Hypothyroidism Monitor vital signs Monitor CBC Monitor CMP Continue telemetry monitoring Follow-up on blood cultures Follow-up urine cultures Continue IV Rocephin Monitor blood sugar levels, continue sliding scale insulin CTA neck demonstrates extensive calcification at the right carotid bifurcation that may be associated with approximately 70% stenosis of the origin of the right ICA and high-grade stenosis at the region of the right ECA. Atherosclerotic calcification of the left carotid bifurcation associated with less than 50% stenosis. No vertebral artery stenosis. Vascular surgery recommend outpatient follow-up Follow-up in ID recommendations Follow-up on neurology recommendations Labs and medication were reviewed.. Continue same treatment. Continue with symptomatic treatment. Resume home medication. Monitor labs and vitals. DVT and GI prophylaxis. Further recommendations as per clinical course of the patient Dictation was produced using [employer] dictation software. please excuse any grammatical, word or spelling errors. Objective - Vital Signs Vital signs: Vital Signs Temp 98.1 F 03/07/23 12:07 Pulse 105 H 03/07/23 12:07 Resp 18 03/07/23 12:07 BP 122/76 03/07/23 12:07 Pulse Ox 96 03/07/23 12:07 FiO2 Intake & Output 03/06/23 03/07/23 03/07/23 18:59 06:59 18:59 Intake Total 572 10 320 Output Total 250 300 Balance 322 10 20 Weight 99.79 kg Intake: IV 20 10 10 Invasive Line 1 20 10 10 Intake, IV Titration 90 70 Amount Sodium Chloride 0.9% 1, 40 20 000 ml @ 75 mls/hr IV . [id number] [facility] Rx#:[id number] cefTRIAXone 2 gm In 50 50 Sodium Chloride 0.9% 50 ml @ 100 mls/hr IVPB Q24HR [facility] Rx#:[id number] Oral 462 240 Output: Urine 250 300 Other: Voiding Method Toilet Toilet Toilet # Voids 3 2 1 # Bowel Movements 1 - Labs CBC & Chem 7: 03/06/23 08:35 03/06/23 08:35 Labs: Abnormal Lab Results - Last 24 Hours (Table) 03/06/23 03/06/23 03/06/23 Range/Units 08:35 16:51 19:29 POC Glucose (mg/dL) 125 H 115 H (70-110) mg/dL Hemoglobin A1c 6.8 H (<=6.0) % 03/07/23 Range/Units 06:04 POC Glucose (mg/dL) 132 H (70-110) mg/dL Hemoglobin A1c (<=6.0) % Microbiology - Last 24 Hours (Table) 03/05/23 18:19 Blood Culture - Preliminary Blood 03/05/23 18:08 Blood Culture - Preliminary Blood
[2023-03-07 16:08] LABS: Glucose,Whole Blood 88 mg/dL (70-110)
[2023-03-07 20:08] LABS: Glucose,Whole Blood 85 mg/dL (70-110)
[2023-03-07] MEDS: METOPROLOL TARTRATE 25 MG TAB PO SCH (21:19)
[2023-03-07] MEDS: ATORVASTATIN 40 MG TAB PO SCH (21:19)
[2023-03-07] MEDS: ALPRAZolam 0.25 MG TAB PO PRN (23:28)
[2023-03-08] MEDS: ACETAMINOPHEN TAB 325 MG TAB PO PRN ×2 (03:58→10:13)
[2023-03-08 05:48] LABS: Glucose,Whole Blood 127 mg/dL (70-110)
[2023-03-08] MEDS: INSULIN ASPART (NovoLOG) 100 UNIT/ML VIAL SQ SCH ×3 (05:50→12:30)
[2023-03-08] MEDS: ESCITALOPRAM 20 MG TAB PO SCH (08:36)
[2023-03-08] MEDS: LORATADINE 10 MG TAB PO SCH (08:36)
[2023-03-08] MEDS: BUMETANIDE 1 MG TAB PO SCH (08:36)
[2023-03-08] MEDS: ASPIRIN 81 MG PO SCH (08:36)
[2023-03-08] MEDS: CLOPIDOGREL 75 MG TAB PO SCH (08:36)
[2023-03-08] MEDS: VENLAFAXINE HCL ER 37.5 MG CAP PO SCH (08:36)
[2023-03-08] MEDS: MAGNESIUM OXIDE 400 MG TAB PO SCH (08:36)
[2023-03-08] MEDS: FERROUS SULFATE 325 MG TAB PO SCH (08:36)
[2023-03-08] MEDS: PANTOPRAZOLE 40 MG TABLET PO SCH (08:36)
[2023-03-08] MEDS: VALSARTAN 80 MG TAB PO SCH (08:36)
[2023-03-08] MEDS: HEPARIN SODIUM,PORCINE 5,000 UNIT/ML 1 ML VIAL SQ SCH ×2 (08:37→12:30)
[2023-03-08] MEDS: SYMBICORT 160-4.5 MCG INHALER INHALATION SCH (09:16)
[2023-03-08] MEDS: IPRATROPIUM 0.5 MG/2.5 ML NEBU INHALATION SCH ×2 (09:16→12:04)
--- NOTE | 2023-03-08 09:41 | P.PN ---
Subjective Progress Note Date: 03/07/23 Patient was seen for a follow-up. Patient denies any new focal symptoms. Patient is laying comfortably in the bed. She wants to go home. Objective - Vital Signs Vital signs: Vital Signs Temp 98.0 F 03/07/23 15:15 Pulse 80 03/07/23 15:15 Resp 18 03/07/23 15:15 BP 104/63 03/07/23 15:15 Pulse Ox 95 03/07/23 15:15 FiO2 Intake & Output 03/06/23 03/07/23 03/07/23 18:59 06:59 18:59 Intake Total 252 35 4834 Output Total 250 300 Balance 322 10 870 Weight 99.79 kg Intake: IV 20 10 20 Invasive Line 1 20 10 20 Intake, IV Titration 90 70 Amount Sodium Chloride 0.9% 1, 40 20 000 ml @ 75 mls/hr IV . [id number] [facility] Rx#:[id number] cefTRIAXone 2 gm In 50 50 Sodium Chloride 0.9% 50 ml @ 100 mls/hr IVPB Q24HR [facility] Rx#:[id number] Oral 462 1080 Output: Urine 250 300 Other: Voiding Method Toilet Toilet Toilet # Voids 3 2 1 # Bowel Movements 1 - Exam Examination is essentially unchanged. - Labs CBC & Chem 7: 03/06/23 08:35 03/06/23 08:35 Labs: Abnormal Lab Results - Last 24 Hours (Table) 03/06/23 03/06/23 03/07/23 Range/Units 08:35 19:29 06:04 POC Glucose (mg/dL) 115 H 132 H (70-110) mg/dL Hemoglobin A1c 6.8 H (<=6.0) % Microbiology - Last 24 Hours (Table) 03/05/23 18:19 Urine Culture - Preliminary Urine,Voided Gram Neg Bacilli 03/05/23 18:19 Blood Culture - Preliminary Blood 03/05/23 18:08 Blood Culture - Preliminary Blood Assessment and Plan Assessment: * Altered mental status, likely due to mild delirium related to UTI. Rule out TIA. Patient had no lateralizing symptoms. * Acute UTI, with urine growing > 100,000 gram-negative bacilli. * Right ICA stenosis at its origin 70%. * Hypertension * Type 2 diabetes * Obesity, status post bypass surgery * Anxiety disorder/depression * History of opioid dependence * Obstructive sleep apnea * Coronary artery disease * X tobacco use Plan: * Patient had a transient episode of mental confusion, unclear etiology. Uncertain if due to transient metabolic encephalopathy from UTI, versus a po ssible TIA. Patient had no lateralizing symptoms at that time however. * CTA neck demonstrates extensive calcification at the right carotid bifurcation that may be associated with approximately 70% stenosis of the origin of the right ICA and high-grade stenosis at the region of the right ECA. Atherosclerotic calcification of the left carotid bifurcation associated with less than 50% stenosis. No vertebral artery stenosis. * CTA head demonstrates atherosclerotic desiccation of the vertebral and carotid arteries at the skull base. No occlusion or high-grade stenosis involving the proximal anterior, middle or posterior cerebral arteries or the basilar artery. * Vascular surgery has been consulted. They are recommending patient follow-up in the office outpatient. * We will place patient on dual antiplatelet medication including Plavix 75 mg and aspirin 81 mg. * Urine drug screen negative * Hemoglobin A1c 6.8, well controlled. * Patient's last lipid panel from 01/18/2022, was well controlled with cholesterol 91, LDL 26, HDL 47 and triglycerides 84. Continue Lipitor 40 mg daily. * Patient currently on ceftriaxone for UTI. * Neurologically clear for discharge. Recommend follow-up with vascular surgery outpatient. Neurology will sign off.
[2023-03-08 10:20] LABS: HCT 38.7 % (34.0-46.0); HGB 12.5 gm/dL (11.4-16.0); MCH 28.6 pg (25.0-35.0); MCHC 32.3 g/dL (31.0-37.0); MCV 88.7 fL (80.0-100.0); Mean Platelet Volume 8.3; Platelet Count 335 k/uL (150-450); RBC 4.37 m/uL (3.80-5.40); RDW 14.6 % (11.5-15.5); WBC 10.7 k/uL (3.8-10.6)
[2023-03-08 10:45] LABS: African American GFR (CKD) 70 (>60 ml/min/1.73 sqM); Anion Gap 10 mmol/L; Blood Urea Nitrogen 15 mg/dL (7-17); Calcium 9.3 mg/dL (8.4-10.2); Carbon Dioxide 31 mmol/L (22-30); Chloride 93 mmol/L (98-107); Glucose 175 mg/dL (74-99); Non-African American GFR(CKD) 61 (>60 ml/min/1.73 sqM); Sodium 134 mmol/L (137-145)
[2023-03-08 11:47] VITALS: BP 118/62; PULSE 72; RESP 16; TEMP 98.6
[2023-03-08 11:53] LABS: Glucose,Whole Blood 82 mg/dL (70-110)
--- NOTE | 2023-03-08 12:24 | P.DS ---
Providers Date of admission: 03/05/23 18:39 Expected date of discharge: 03/08/23 Attending physician: Omid Jean-Baptiste Consults: 03/05/23 18:37 Consult Physician Routine Consulting Provider: Lenora Yeh Consult Reason/Comments: carotid stenosis Do you want consulting provider notified?: Yes Consult Physician Routine Consulting Provider: Lita Nguyen Consult Reason/Comments: confusion, carotid stenosis Do you want consulting provider notified?: Yes 03/06/23 09:31 Consult Physician Routine Consulting Provider: Mychal Booth Consult Reason/Comments: UTI Do you want consulting provider notified?: Yes Primary care physician: hDruv Wilhelm [facility] Course: Discharge diagnoses; Acute infectious encephalopathy Bilateral carotid stenoses UTI -COPD with acute exacerbation -hyperlipidemia -hypertension -Sleep apnea -Hypothyroidism Hospital course; patient is 62-year-old lady with past medical history significant for COPD, diabetes mellitus, hypertension, who was transferred from [facility] facility to get neurology and vascular surgery evaluation. Patient initially presented to [facility] for confusion, patient was found confused in a bank, no complaint of loss of consciousness. No complain of recent fall. There was no noticeable facial droop or weakness of any extremity. Patient was worked up at [facility] and was found to have UTI and bilateral carotid stenosis. Patient was transferred to [facility] Initial lab work done in the ER showed WBC 11.6, hemoglobin 12.6, platelet count 296, sodium 140, potassium 4.3, BUN 25, creatinine 0.83, glucose 122 UA showed large amount of leukocyte esterase, WBCs 112 EKG done in the ER heart rate 95, QRS 101, frequent PVCs, no ST segment elevation, no T-wave inversion Patient admitted to medicine service 03/07. Patient seen and examined. States she feels much better. Denies any fever or chills. Swelling of legs is improved 03/08. Patient seen and examined. Discussed with infectious disease, recommend send patient to oral Ceftin for one week. Patient to follow-up outpatient with vascular surgery and ID PHYSICAL EXAMINATION: GENERAL: The patient is alert and oriented x3, not in any acute distress. Well developed, well nourished. HEENT: Pupils are round and equally reacting to light. EOMI. No scleral icterus. No conjunctival pallor. Normocephalic, atraumatic. No pharyngeal erythema. No thyromegaly. CARDIOVASCULAR: S1 and S2 present. No murmurs, rubs, or gallops. PULMONARY: Chest is clear to auscultation, no wheezing or crackles. ABDOMEN: Soft, nontender, nondistended, normoactive bowel sounds. No palpable organomegaly. MUSCULOSKELETAL: No joint swelling or deformity. EXTREMITIES: No cyanosis, clubbing, or pedal edema. NEUROLOGICAL: Gross neurological examination did not reveal any focal deficits. SKIN: No rashes. Dictation was produced using [employer] dictation software. please excuse any grammatical, word or spelling errors. Patient Condition at Discharge: Stable Plan - Discharge Summary Discharge Rx Participant: No New Discharge Prescriptions: New cefUROXime axetiL [Cefuroxime] 500 mg PO BID 7 Days #14 tab Clopidogrel [Plavix] 75 mg PO DAILY 30 Days #30 tab Continue Cetirizine HCl 10 mg PO DAILY Buprenorphine HCl/Naloxone HCl [Buprenorphine-Nalox 8-2Mg Film] 1 film SL BID Acetaminophen Tab [Tylenol] 650 mg PO Q6HR PRN tab PRN Reason: Fever And/ Or Pain Valsartan 80 mg PO DAILY Bumetanide [BUMEX] 2 mg PO BID Ipratropium-Albuterol Nebulize [Duoneb 0.5 mg-3 mg/3 ml Soln] 3 ml INHALATION RT-QID PRN PRN Reason: Shortness Of Breath Simethicone [Gas-X] 125 mg PO AC-TID PRN #20 capsule PRN Reason: Pain Metoprolol Tartrate [Lopressor] 50 mg PO DAILY Multivitamins, Thera [Multivitamin (formulary)] 1 tab PO DAILY Zinc Gluconate [Zinc] 50 mg PO DAILY Fluticasone Nasal [place] [Flonase Nasal [place]] 1 spray EA NOSTRIL DAILY Venlafaxine HCl ER [Effexor XR] 37.5 mg PO DAILY Vitamin B Complex 1 cap PO DAILY Nicotine Polacrilex [Nicotine Lozenge] 2 mg MUCOUS MEM TID PRN PRN Reason: Nicotine Cravings Cholecalciferol (Vitamin D3) [Vitamin D3 (5000 Iu)] 250 mcg PO DAILY Albuterol Sulfate [Ventolin HFA] 2 puff INHALATION RT-Q4H PRN PRN Reason: Shortness Of Breath Pantoprazole Sodium [Protonix] 40 mg PO DAILY Magnesium Oxide 400 mg PO BID Nitroglycerin Sl Tabs [Nitrostat] 0.4 mg SUBLINGUAL Q5M PRN #20 tab PRN Reason: Chest Pain Potassium Chloride [Klor-Con 10 ER] 10 meq PO DAILY Budesonide/Glycopyr/Formoterol [Breztri Aerosphere Inhaler] 2 puff INHALATION RT-BID ALPRAZolam [Xanax] 0.25 mg PO BID PRN PRN Reason: Anxiety Vitamin K 100 Mcg 100 mcg PO DAILY Aspirin 81 mg PO DAILY #30 tab Sodium Chloride Tab 2 gm PO DAILY Atorvastatin [Lipitor] 40 mg PO DAILY metFORMIN HCL 500 mg PO BID Ferrous Sulfate [Feosol] 325 mg PO DAILY Tirzepatide [Mounjaro] 7.5 mg SQ WE Metoprolol Tartrate [Lopressor] 25 mg PO HS Escitalopram [Lexapro] 20 mg PO DAILY predniSONE [Deltasone] See Taper PO DIRECTED Discharge Medication List Albuterol Sulfate [Ventolin HFA] 2 puff INHALATION RT-Q4H PRN 12/01/20 [History] Cholecalciferol (Vitamin D3) [Vitamin D3 (5000 Iu)] 250 mcg PO DAILY 12/01/20 [History] Magnesium Oxide 400 mg PO BID 12/01/20 [History] Pantoprazole Sodium [Protonix] 40 mg PO DAILY 12/01/20 [History] Nitroglycerin Sl Tabs [Nitrostat] 0.4 mg SUBLINGUAL Q5M PRN #20 tab 12/04/20 [Rx] Potassium Chloride [Klor-Con 10 ER] 10 meq PO DAILY 09/05/21 [History] ALPRAZolam [Xanax] 0.25 mg PO BID PRN 01/17/22 [History] Budesonide/Glycopyr/Formoterol [Breztri Aerosphere Inhaler] 2 puff INHALATION RT-BID 01/17/22 [History] Buprenorphine HCl/Naloxone HCl [Buprenorphine-Nalox 8-2Mg Film] 1 film SL BID 01/17/22 [History] Cetirizine HCl 10 mg PO DAILY 01/17/22 [History] Vitamin K 100 Mcg 100 mcg PO DAILY 01/17/22 [History] Acetaminophen Tab [Tylenol] 650 mg PO Q6HR PRN tab 01/22/22 [Rx] Aspirin 81 mg PO DAILY #30 tab 01/22/22 [Rx] Atorvastatin [Lipitor] 40 mg PO DAILY 07/25/22 [History] Bumetanide [BUMEX] 2 mg PO BID 07/25/22 [History] Ferrous Sulfate [Feosol] 325 mg PO DAILY 07/25/22 [History] Sodium Chloride Tab 2 gm PO DAILY 07/25/22 [History] Valsartan 80 mg PO DAILY 07/25/22 [History] metFORMIN HCL 500 mg PO BID 07/25/22 [History] Ipratropium-Albuterol Nebulize [Duoneb 0.5 mg-3 mg/3 ml Soln] 3 ml INHALATION RT-QID PRN 09/09/22 [History] Simethicone [Gas-X] 125 mg PO AC-TID PRN #20 capsule 09/12/22 [Rx] Escitalopram [Lexapro] 20 mg PO DAILY 03/05/23 [History] Fluticasone Nasal [place] [Flonase Nasal [place]] 1 spray EA NOSTRIL DAILY 03/05/23 [History] Metoprolol Tartrate [Lopressor] 25 mg PO HS 03/05/23 [History] Metoprolol Tartrate [Lopressor] 50 mg PO DAILY 03/05/23 [History] Multivitamins, Thera [Multivitamin (formulary)] 1 tab PO DAILY 03/05/23 [History] Nicotine Polacrilex [Nicotine Lozenge] 2 mg MUCOUS MEM TID PRN 03/05/23 [History] Tirzepatide [Mounjaro] 7.5 mg SQ WE 03/05/23 [History] Venlafaxine HCl ER [Effexor XR] 37.5 mg PO DAILY 03/05/23 [History] Vitamin B Complex 1 cap PO DAILY 03/05/23 [History] Zinc Gluconate [Zinc] 50 mg PO DAILY 03/05/23 [History] predniSONE [Deltasone] See Taper PO DIRECTED 03/05/23 [History] Clopidogrel [Plavix] 75 mg PO DAILY 30 Days #30 tab 03/08/23 [Rx] cefUROXime axetiL [Cefuroxime] 500 mg PO BID 7 Days #14 tab 03/08/23 [Rx] Follow up Appointment(s)/Referral(s): Gary Estes MD [STAFF PHYSICIAN] - 1 Week (Offices are closed please call to make a follow up appointment) Chu Rudolph DO [STAFF PHYSICIAN] - 1 Week (Offices are closed please call to make a follow up appointment) Dhruv Wilhelm MD [Primary Care Provider] - 1-2 days (Offices are closed please call to make a follow up appointment) Mychal Booth MD [STAFF PHYSICIAN] - 1 Week Patient Instructions/Handouts: Urinary Tract Infection in Women (DC), Carotid Artery Disease (DC), Safe Use of Antiplatelet Medication (DC) Discharge Disposition: HOME SELF-CARE
--- NOTE | 2023-03-09 11:57 | P.PN ---
Subjective Progress Note Date: 03/08/23 Principal diagnosis: Urinary tract infection Patient is a 62-year-old female with a past medical history significant for diabetes mellitus hypertension hyperlipidemia [place] COPD patient presenting to the hospital as a transfer from [facility] for evaluation of confusion, patient did have some urine symptom positive UA likely source of her confusion. On today's evaluation that is 03/08/2023, the patient remains to be afebrile, the patient is breathing comfortably on room air without the need for supplemental oxygen , the patient denies chest pain or cough, patient denies nausea/vomiting or diarrhea and denies any abdominal pain Patient did have white count normalized to 10.7 and a creatinine is 1.01, urine culture with Klebsiella that is sensitive to ceftriaxone blood culture negative Objective - Vital Signs Vital signs: Vital Signs Temp 98.6 F 03/08/23 11:32 Pulse 72 03/08/23 11:32 Resp 16 03/08/23 11:32 BP 118/62 03/08/23 11:32 Pulse Ox 94 L 03/08/23 11:32 FiO2 Intake & Output 03/07/23 03/08/23 03/08/23 18:59 06:59 18:59 Intake Total 1170 250 Output Total 300 200 Balance 870 50 Intake: IV 20 20 Invasive Line 1 20 20 Intake, IV Titration 70 50 Amount Sodium Chloride 0.9% 1, 20 000 ml @ 75 mls/hr IV . [id number] COUNT INCLUDES THE [facility] Rx#:[id number] cefTRIAXone 2 gm In 50 50 Sodium Chloride 0.9% 50 ml @ 100 mls/hr IVPB Q24HR COUNT INCLUDES THE [facility] Rx#:[id number] Oral 1080 180 Output: Urine 300 200 Other: Voiding Method Toilet Toilet Toilet # Voids 1 1 0 # Bowel Movements 0 - Exam GENERAL DESCRIPTION: Middle-aged female lying in bed in no distress RESPIRATORY SYSTEM: Unlabored breathing , decreased breath sounds at bases HEART: S1 S2 regular rate and rhythm , ABDOMEN: Soft , no tenderness EXTREMITIES: No edema feet - Labs CBC & Chem 7: 03/08/23 09:44 03/08/23 09:44 Labs: Abnormal Lab Results - Last 24 Hours (Table) 03/08/23 03/08/23 03/08/23 Range/Units 05:47 09:44 09:44 WBC 10.7 H (3.8-10.6) k/uL Sodium 134 L (137-145) mmol/L Chloride 93 L (98-107) mmol/L Carbon Dioxide 31 H (22-30) mmol/L Glucose 175 H (74-99) mg/dL POC Glucose (mg/dL) 127 H (70-110) mg/dL Microbiology - Last 24 Hours (Table) 03/05/23 18:19 Urine Culture - Final Urine,Voided Klebsiella pneumoniae 03/05/23 18:19 Blood Culture - Preliminary Blood 03/05/23 18:08 Blood Culture - Preliminary Blood Assessment and Plan (1) UTI (urinary tract infection) Status: Acute Code(s): N39.0 - URINARY TRACT INFECTION, SITE NOT SPECIFIED SNOMED Code(s): 86412601 Plan: 1patient presented to hospital with mental status changes in this patient who did have a positive UA urinary symptom likely concerning for symptomatic urinary tract infection likely from enteric gram-negative pathogen. 2the patient white count has normalized urine culture is growing Klebsiella that is sensitive to ceftriaxone, patient had shown clinical improvement and insisting on going home advised to finish therapy with oral Ceftin and close outpatient follow-up discussed with the admitting physician working on discharge Dictation was produced using [email or web address] dictation software. please excuse any grammatical, word or spelling errors. Time with Patient: Less than 30
== END 2023-03-08 13:15 | disposition home or self-care (01) | DRG 689 ==
LOC: EC 17:22 → 3SCARD 18:39
PROVIDERS: ADMIT Hospitalist; ATTEND Hospitalist
DX: N39.0 Urinary tract infection, site not specified (principal); G93.41 Metabolic encephalopathy; J44.1 Chronic obstructive pulmonary disease with (acute) exacerbation; Z68.41 Body mass index [BMI] 40.0-44.9, adult; F11.20 Opioid dependence, uncomplicated; I65.23 Occlusion and stenosis of bilateral carotid arteries; E78.5 Hyperlipidemia, unspecified; J44.9 Chronic obstructive pulmonary disease, unspecified; M48.02 Spinal stenosis, cervical region; E11.9 Type 2 diabetes mellitus without complications; I50.9 Heart failure, unspecified; I49.3 Ventricular premature depolarization; I25.10 Atherosclerotic heart disease of native coronary artery without angina pectoris; I11.0 Hypertensive heart disease with heart failure; G89.29 Other chronic pain; G47.33 Obstructive sleep apnea (adult) (pediatric); F41.9 Anxiety disorder, unspecified; F32.A Depression, unspecified; Z87.891 Personal history of nicotine dependence; E03.9 Hypothyroidism, unspecified; E66.9 Obesity, unspecified; Z99.81 Dependence on supplemental oxygen; Z98.84 Bariatric surgery status; Z95.5 Presence of coronary angioplasty implant and graft; I25.2 Old myocardial infarction; Z79.899 Other long term (current) drug therapy; Z79.82 Long term (current) use of aspirin; Z79.84 Long term (current) use of oral hypoglycemic drugs
CPT/HCPCS: 36415; 80048; 80053; 80306; 81001; 83036; 85025; 85027; 87040; 87077; 87086; 87186; 93005; 94640; 94760; 96360; 99285

== ENCOUNTER → 2023-05-25 | Outpatient (CLI) | payer MEDICARE, OTHER ==
[2023-05-25 15:30] LABS: BUN/Creat Ratio 13.75 Ratio (12.00-20.00); Basophils # (A) 0.09 X 10*3/uL (0.00-0.10); Basophils % (A) 0.8 %; Blood Urea Nitrogen 16.5 mg/dL (9.0-27.0); Calcium 9.8 mg/dL (8.7-10.3); Carbon Dioxide 29.7 mmol/L (21.6-31.8); Chloride 95 mmol/L (96-109); Eosinophils # (A) 0.42 X 10*3/uL (0.04-0.35); Eosinophils % (A) 3.8 %; Glucose 103 mg/dL (70-110); HGB 12.1 g/dL (12.0-15.0); Lymphocytes # (A) 2.49 X 10*3/uL (0.90-5.00); Lymphocytes % (A) 22.7 %; MCH 27.8 pg (27.0-32.0); MCHC 31.8 g/dL (32.0-37.0); MCV 87.4 FL (80.0-97.0); Mean Platelet Volume 9.9 FL (9.5-12.2); Monocytes # (A) 0.71 X 10*3/uL (0.20-1.00); Monocytes % (A) 6.5 %; NRBC Per 100 WBC 0 X 10*3/uL (0.00-0.01); Neutrophils % (A) 65.6 %; Platelet Count 378 X 10*3/uL (140-440); Potassium 3.8 mmol/L (3.5-5.5); RBC 4.35 X 10*6/uL (4.10-5.20); RDW 13.8 % (11.5-14.5); Sodium 138 mmol/L (135-145); WBC 10.98 X 10*3/uL (4.50-10.00)
[2023-05-25 17:50] LABS: INR 0.95 sec (0.93-1.11); Prothrombin Time 10.3 sec (9.9-11.9)
[2023-05-25 19:19] LABS: Appearance,Urine Clear (Clear); Bilirubin,Urine Negative (Negative); Blood,Urine Negative (Negative); Color,Urine Dark Yellow (Yellow); Ketones,Urine Negative (Negative); Nitrite,Urine Negative (Negative); PH, Urine 6.5; Specific Gravity,Urine 1.015 (1.001-1.030); Urobilinogen,Urine 0.2 E.U./DL
[2023-05-25 19:22] LABS: Bacteria,Urine None Seen (None Seen)
== END | disposition home or self-care (01) ==
LOC: LABWHC1 11:52
PROVIDERS: ATTEND Pediatrics
DX: Z01.812 Encounter for preprocedural laboratory examination (principal); M48.02 Spinal stenosis, cervical region; M43.12 Spondylolisthesis, cervical region
CPT/HCPCS: 36415; 80048; 81001; 85025; 85610; 85730; 87070

== ENCOUNTER → 2023-06-08 | Outpatient (CLI) | payer MEDICARE, OTHER | END | disposition home or self-care (01) | LOC: LABPAT 10:48 | PROVIDERS: ATTEND Orthopaedic Surgery Orthopaedic Surgery of the Spine | DX: Z01.812 Encounter for preprocedural laboratory examination (principal); M48.02 Spinal stenosis, cervical region; M43.10 Spondylolisthesis, site unspecified | CPT/HCPCS: 85730; 86850; 86900; 86901 ==

== ENCOUNTER 2023-06-17 05:35 | Inpatient (IN) | payer MEDICARE, OTHER ==
[~2023-06-17 05:35] MED LIST changes: -DEXAMETHASONE SOD PHOSPHATE 4 MG/ML 1 ML VIAL IV ONE; -HEPARIN SODIUM,PORCINE/PF 5,000 UNIT/0.5 ML SYRINGE SQ PRN; -LACTATED RINGERS 1,000 ML IV SCH; -MIDAZOLAM 2 MG/2 ML VIAL IV PRN; -ONDANSETRON 4 MG/2 ML VIAL IVP ONE; -SCOPOLAMINE 1 MG/72 HR PATCH TRANSDERM ONE; +ceFAZolin 1,000 MG in SODIUM CHLORIDE 0.9% IRRIGATIO 1,000 ML IRRIGATION PRN
[2023-06-17] MEDS ORDERED: LACTATED RINGERS 1,000 ML IV SCH (06:02)
[2023-06-17] MEDS ORDERED: ONDANSETRON 4 MG/2 ML VIAL IVP ONE ×2 (06:02→06:44)
[2023-06-17] MEDS ORDERED: DEXAMETHASONE SOD PHOSPHATE 4 MG/ML 1 ML VIAL IV ONE (06:02)
[2023-06-17 06:37] VITALS: RESP 16
[2023-06-17] MEDS ORDERED: HYDROmorphone 0.5 MG/0.5 ML SYRINGE IVP PRN ×2 (07:00→09:53)
[2023-06-17 07:10] LABS: Glucose,Whole Blood 107 mg/dL (70-110)
[2023-06-17] MEDS ORDERED: LIDOCAINE 1% INJ 10MG/ML (20 ML MDV) ONE (07:25)
[2023-06-17] MEDS ORDERED: SUCCINYLCHOLINE CHLORIDE 200 MG/10 ML VIAL IV ONE (07:25)
[2023-06-17] MEDS ORDERED: fentaNYL (PF) 50 MCG/ML 2 ML AMP ONE (07:25)
[2023-06-17] MEDS ORDERED: MIDAZOLAM 2 MG/2 ML VIAL ONE (07:25)
[2023-06-17] MEDS ORDERED: GLYCOPYRROLATE 0.2 MG/ML 2 ML VIAL ONE (07:25)
[2023-06-17] MEDS ORDERED: PHENYLEPHRINE 10 MG/ML VIAL ONE (07:25)
[2023-06-17] MEDS ORDERED: ROCURONIUM 10 MG/ML (5 ML VIAL) IV ONE (07:25)
[2023-06-17] MEDS ORDERED: NEOSTIGMINE 1 MG/ML 10 ML VIAL ONE (07:25)
[2023-06-17] MEDS ORDERED: ePHEDrine 50 MG/ML 1 ML VIAL ONE (07:25)
[2023-06-17] MEDS ORDERED: DEXAMETHASONE SOD PHOSPHATE 10 MG/ML 1 ML VIAL ONE (07:25)
[2023-06-17] MEDS ORDERED: PROPOFOL 10 MG/ML 20 ML VIAL IV ONE (07:25)
[2023-06-17] MEDS ORDERED: LIDOCAINE 0.5%-EPI 1:200,000 50 ML VIAL SQ ONE (07:30)
[2023-06-17] MEDS ORDERED: GELATIN SPONGE,ABSORB (LARGE) 1 EACH SPONGE TOPICAL ONE (07:30)
[2023-06-17] MEDS ORDERED: THROMBIN (BOVINE) 5,000 UNIT VIAL TOPICAL ONE (07:30)
--- NOTE | 2023-06-17 09:05 | XR ---
EXAMINATION TYPE: XR cervical spine 1V DATE OF EXAM: 06/17/2023 COMPARISON: NONE HISTORY: Intraoperative localization TECHNIQUE: 2 crosstable lateral views are obtained of the cervical spine. Localization device is note d at the anterior C3-4 disc space. FINDINGS: Localization device is noted at the anterior C3-4 disc space. IMPRESSION: As above
[2023-06-17] MEDS ORDERED: LACTATED RINGERS 1,000 ML IV ONE (09:51)
[2023-06-17] MEDS ORDERED: BENZOCAINE/MENTHOL LOZENG 1 EACH LOZENGE MUCOUS MEM PRN (09:53)
[2023-06-17] MEDS ORDERED: HYDROcodone/APAP 5-325MG 1 EACH TAB PO PRN (09:53)
[2023-06-17] MEDS ORDERED: CYCLOBENZAPRINE 10 MG TAB PO PRN (09:54)
[2023-06-17] MEDS ORDERED: ONDANSETRON 4 MG/2 ML VIAL IVP PRN (09:54)
[2023-06-17] MEDS ORDERED: IPRATROPIUM-ALBUTEROL 3 ML NEB INHALATION PRN (09:55)
[2023-06-17] MEDS ORDERED: ALBUTEROL HFA INHALER INHALATION PRN (09:55)
[2023-06-17] MEDS ORDERED: ACETAMINOPHEN TAB 325 MG TAB PO PRN (09:55)
[2023-06-17] MEDS ORDERED: ALPRAZolam 0.25 MG TAB PO PRN (09:55)
[2023-06-17] MEDS ORDERED: NON FORMULARY DRUG (Tirzepatide [Mounjaro] 7.5 MG/0.5 ML Pen.Injctr) SQ SCH (10:00)
[2023-06-17] MEDS ORDERED: SODIUM CHLORIDE 0.9% 1,000 ML IV SCH (10:00)
--- NOTE | 2023-06-17 10:05 | P.OP ---
Date of Procedure: 06/17/23 Preoperative Diagnosis: Cervical myelopathy, severe cervical stenosis C3-4, spondylolisthesis C3-4, degenerative disc disease C3-4 with adjacent level degeneration above prior fusion from C4-7, upper extremity weakness, upper extremity radiculopathy, neck pain, prior anterior cervical decompression and fusion see 4 5 C5-6 C6-7 with retained hardware Postoperative Diagnosis: Same Anesthesia: GETA Pathology: none sent Condition: stable Disposition: PACU Description of Procedure: BRIEF OPERATIVE NOTE Preoperative Diagnosis:Cervical myelopathy, severe cervical stenosis C3-4, spondylolisthesis C3-4, degenerative disc disease C3-4 with adjacent level degeneration above prior fusion from C4-7, upper extremity weakness, upper extremity radiculopathy, neck pain, prior anterior cervical decompression and fusion see 4 5 C5-6 C6-7 with retained hardware Postoperative Diagnosis:Cervical myelopathy, severe cervical stenosis C3-4, spondylolisthesis C3-4, degenerative disc disease C3-4 with adjacent level degeneration above prior fusion from C4-7, upper extremity weakness, upper extremity radiculopathy, neck pain, prior anterior cervical decompression and fusion see 4 5 C5-6 C6-7 with retained hardware Procedure: Removal of anterior cervical plate C4-5-6 7 deep implant Exploration of fusion C4-7 with findings of solid fusion anterior cervical decompression and discectomy and fusion C3-4 Placement of interbody graft C3-4 Application of anterior cervical plate C3-4 Surgeon: Dr. Ramírez Threshing Operator: Andrea BLACKMAN who is present throughout the entire the case persistence during positioning, dissection, exposure, visualization, and all crucial elements of the case as well as closure. Anesthesia: General anesthesia Estimated blood loss: Approximately 50 cc Complications: None apparent Components implanted: We removed a [place] plate with screws x 4. One of the screws were at C4 was broken and there is a small retained portion of the screw within the vertebral body of C4. We implanted a new [place] plate with 4 screws and a Vicos interbody allograft bone graft Disposition: To recovery room in good stable condition. OPERATIVE INDICATIONS The patient has had long-standing issues in their neck and upper extremities. The patient has been through significant treatment of her neck in the past. More than 10 or 15 years ago she had undergone anterior cervical decompression with discectomy and fusion with Dr. Tirado. She had undergone repeat surgery with Dr. Shell with further anterior cervical decompression and fusion with fixation of an anterior cervical plate from C4-C7. Apparently she had done adequately with this however over the past several years she has been developing worsening symptoms at her neck and her upper extremities. She had evaluation and was found to have stable prior fusion from C4-7 but was having severe adjacent level degeneration at C3-4 with evidence of listhesis severe stenosis and evidence of myelopathy on her exam. The patient has been through conservative treatment. With the patient's significant symptoms severe stenosis and evidence of myelopathy we felt that she would be a candidate for surgical intervention. Surgery would involve having to remove the plate which was impinging anterior overly the C3-4 disc space with decompression discectomy and fusion at C3-4. We discussed various treatment options including surgery, and the patient wishes to proceed with surgery We discussed the risk, patient's alternatives and benefits of surgery including but not limited to, risk of bleeding risk of infection, risk of need for further surgery, risk of decreased, loss of motion, muscle function, malunion nonunion, hardware failure, nerve damage, paralysis, heart attack, and . OPERATIVE SUMMARY After discussing all the risks, patient alternatives and benefits at length, the patient elected to proceed with surgical intervention, signed informed consent, and presented for their procedure. The patient was seen and examined in the preoperative holding area and the surgical site was marked. The patient was given antibiotics and brought to the operating room. The patient was positioned on the operating room table in a supine position being careful to pad any bony prominences and pressure points. The patient was sedated and intubated by anesthesia in standard fashion. Once the airway and C- spine were stabilized the patient's arms were padded and tucked at her side, with her shoulders gently taped. The head was placed in a donut pad with the neck in good neutral alignment and position. We were careful to maintain the patient's cervical spine and good neutral alignment and position throughout. The patient was prepped and draped in a normal standard fashion. An appropriate timeout and keystone protocol performed. We were able to proceed with the surgery. The local wound area was infiltrated with local anesthetic. An incision was made longitudinally on the left side as she had had prior transverse incisions x 2 on the right side. Dissection was taken down subcutaneously to the level of the platysma which was split in line with its fibers. Dissection was taken with a carotid approach, with the trachea and esophagus medial and the carotid sheath laterally. We dissected down to the anterior surface of the vertebral bodies and the anterior cervical plate from C4-C7. I was able to expose the plate in its entirety. The construct was checked found to be stable I was then able to remove the center locking screws and the screws x 4. The C4 screw on the left was found to be fractured and a small portion of the screw was retained within the vertebral body of C4. Otherwise the hardware was removed appropriately. Intraoperative x-ray was taken which showed a marker at the appropriate level at C3-4 with the plate removed fully and the screws removed with only the small fragment within the body stable at C4. I decided to leave that small fragment of screw within the body as it did not seem to impinge or cause any issues. I felt it would be more traumatic to remove that fragment then to leave it. With the appropriate level positively confirmed, we were able to proceed with discectomy at the appropriate levels of C3-4. All of the operative levels were exposed appropriately. The patient had all their twitches back, and there was no evidence of recurrent laryngeal issue. The wound was copiously irrigated and suctioned dry as had been done periodically throughout the case. At the appropriate level/levels, I established an annulotomy with an 11 blade scalpel. It was a significant listhesis at that level and large anterior osteophyte. I was able to remove most of the osteophyte and perform the discectomy. A discectomy was performed with a combination of pituitary rongeurs, curettes, a high-speed bur, and [place] rongeurs. The posterior longitudinal ligament was taken down as were any posterior osteophytes. There had been quite severe central and bilateral foraminal stenosis which was remedied with a decompression discectomy and removal of the posterior osteophytes. This gave good central and bilateral foraminal decompression. There is no evidence of any dural tear or leak. The endplates were prepared with a high-speed bur. With the endplates in good parallel position, I was able to size for the appropriate size interbody graft. The wound was irrigated and suctioned dry the graft was prepared and malleted into position. It had good alignment and position with the anterior surface flush with the anterior surface of the vertebral bodies. This was done similarly the appropriate levels. With the grafts intact, I was able to measure and contour and appropriate sized plate. The plate was positioned at the midline over the appropriate levels of C3-4. Screw holes were established with a hand drill and drill guide. Screws were placed in good alignment and position with excellent bony purchase. They were seated under the locking device. The construct was checked and found to be stable. Intraoperative x-ray was taken which showed good alignment and position of the implants at the appropriate levels of C3-4. There was no evidence of any dural tear or leak. Good hemostasis was maintained. The wound was copiously irrigated and suctioned dry as had been done periodically throughout the case. The platysma was closed with absorbable suture. The subcutaneous tissue was closed. The subcuticular tissue was closed with absorbable suture. The wound was cleaned and dried and dressed appropriately. A soft cervical collar was placed appropriately. The patient was woken up by anesthesia, extubated, transferred back gently to their hospital bed and brought to the recovery room in good stable condition. The patient will be admitted to the hospital for appropriate postoperative care, medical management and monitoring. We will continue to follow them closely about the postoperative course.
[2023-06-17 10:16] LABS: Glucose,Whole Blood 130 mg/dL (70-110)
--- NOTE | 2023-06-17 10:27 | XR ---
EXAMINATION TYPE: XR cervical spine 1V DATE OF EXAM: 06/17/2023 CLINICAL HISTORY: HARDWARE PLACEMENT TECHNIQUE: Crosstable lateral view of the cervical spine is submitted. COMPARISON: None. FINDINGS: Anterior cervical discectomy and fusion changes at C3-4 intervertebral body spacer noted. A nterior fixation plate is in place. Postoperative alignment is near-anatomic. IMPRESSION: As above
[2023-06-17 10:29] VITALS: TEMP 97.3
[2023-06-17 12:23] VITALS: BP 134/70; PULSE 104
[2023-06-17] MEDS ORDERED: NON FORMULARY DRUG (Budesonide/Glycopyr/Formoterol [Breztri Aerosphere Inhaler] 10.7 GM Gm INHALATION SCH (20:00)
[2023-06-17] MEDS ORDERED: NON FORMULARY DRUG (Bumetanide [Bumex] 2 MG Tablet) PO SCH (21:00)
[2023-06-17] MEDS ORDERED: [UNRECOGNIZED DRUG - OTHER] SL SCH (21:00)
[2023-06-17] MEDS ORDERED: NALOXONE HCL SL SCH (21:00)
[2023-06-17] MEDS ORDERED: metFORMIN 500 MG TAB PO SCH (21:00)
[2023-06-17] MEDS ORDERED: MAGNESIUM OXIDE 400 MG TAB PO SCH (21:00)
[2023-06-17] MEDS ORDERED: VENLAFAXINE HCL ER 37.5 MG CAP PO SCH (21:00)
[2023-06-17] MEDS ORDERED: BUPRENORPHINE HCL SL SCH (21:00)
[2023-06-18] MEDS ORDERED: SENNOSIDES-DOCUSATE SODIUM 1 EACH TAB PO SCH (09:00)
[2023-06-18] MEDS ORDERED: NON FORMULARY DRUG (Vitamin B Complex [Vitamin B Complex] 1 EACH Capsule) PO SCH (09:00)
[2023-06-18] MEDS ORDERED: CLOPIDOGREL 75 MG TAB PO SCH (09:00)
[2023-06-18] MEDS ORDERED: FLUTICASONE 50MCG/SPRAY NASAL 16GM EA NOSTRIL SCH (09:00)
[2023-06-18] MEDS ORDERED: VITAMIN K 100 MCG PO SCH (09:00)
[2023-06-18] MEDS ORDERED: POTASSIUM CHLORIDE 10 MEQ PO SCH (09:00)
[2023-06-18] MEDS ORDERED: ISOSORBIDE PO SCH (09:00)
[2023-06-18] MEDS ORDERED: PANTOPRAZOLE 40 MG TABLET PO SCH (09:00)
[2023-06-18] MEDS ORDERED: NON FORMULARY DRUG (Zinc Gluconate 50 MG Tab) PO SCH (09:00)
[2023-06-18] MEDS ORDERED: ASPIRIN 81 MG PO SCH (09:00)
[2023-06-18] MEDS ORDERED: NON FORMULARY DRUG (Cetirizine Hcl [Cetirizine Hcl] 10 MG Tablet) PO SCH (09:00)
[2023-06-18] MEDS ORDERED: NON FORMULARY DRUG (Cholecalciferol (Vitamin D3) [Vitamin D3 (5000 Iu)] 125 MCG Capsule) PO SCH (09:00)
[2023-06-18] MEDS ORDERED: FERROUS SULFATE 325 MG TAB PO SCH (09:00)
[2023-06-18] MEDS ORDERED: MULTIVITAMINS, THERA 1 EACH TAB PO SCH (09:00)
[2023-06-18] MEDS ORDERED: VALSARTAN 80 MG TAB PO SCH (09:00)
== END 2023-06-17 12:44 | disposition home or self-care (01) | DRG 454 ==
LOC: 2ORMAIN 05:35 → EDSTATUS 07:30
PROVIDERS: ADMIT Orthopaedic Surgery Orthopaedic Surgery of the Spine; ATTEND Orthopaedic Surgery Orthopaedic Surgery of the Spine
PROC: 0RG10K1 Fusion of Cervical Vertebral Joint with Nonautologous Tissue Substitute, Posterior Approach, Posterior Column, Open Approach (ICD-10-PCS; 2023-06-17)
PROC: 01N10ZZ Release Cervical Nerve, Open Approach (ICD-10-PCS; 2023-06-17)
PROC: 00NW0ZZ Release Cervical Spinal Cord, Open Approach (ICD-10-PCS; 2023-06-17)
PROC: 0PP304Z Removal of Internal Fixation Device from Cervical Vertebra, Open Approach (ICD-10-PCS; 2023-06-17)
PROC: 0RT30ZZ Resection of Cervical Vertebral Disc, Open Approach (ICD-10-PCS; 2023-06-17)
PROC: 0RG10A0 Fusion of Cervical Vertebral Joint with Interbody Fusion Device, Anterior Approach, Anterior Column, Open Approach (ICD-10-PCS; principal; 2023-06-17 07:30)
DX: M48.02 Spinal stenosis, cervical region (principal); F11.20 Opioid dependence, uncomplicated; M50.01 Cervical disc disorder with myelopathy, high cervical region; M50.021 Cervical disc disorder at C4-C5 level with myelopathy; E11.9 Type 2 diabetes mellitus without complications; I10 Essential (primary) hypertension; F32.A Depression, unspecified; E66.9 Obesity, unspecified; M43.12 Spondylolisthesis, cervical region; M50.11 Cervical disc disorder with radiculopathy, high cervical region; M25.78 Osteophyte, vertebrae; K21.9 Gastro-esophageal reflux disease without esophagitis; M51.36 Other intervertebral disc degeneration, lumbar region; M50.121 Cervical disc disorder at C4-C5 level with radiculopathy; Z68.39 Body mass index [BMI] 39.0-39.9, adult; Z98.1 Arthrodesis status; Z79.82 Long term (current) use of aspirin; Z87.891 Personal history of nicotine dependence; Z79.51 Long term (current) use of inhaled steroids; Z79.85 Long-term (current) use of injectable non-insulin antidiabetic drugs; Z79.84 Long term (current) use of oral hypoglycemic drugs; Z79.52 Long term (current) use of systemic steroids; Z88.8 Allergy status to other drugs, medicaments and biological substances
CPT/HCPCS: 72020